=== PATIENT | female | born 1975 | race Caucasian/White ===

== ENCOUNTER 2017-05-13 20:18 | Emergency (ER) | payer MEDICAID ==
[~2017-05-13 20:18] MED LIST: ADDE20 PO; AMIT10TA6 PO; BACL10TA PO; CLON.5 PO; TOPA25TA8 PO
[2017-05-13 20:29] VITALS: BP 109/68; PULSE 84; RESP 20; TEMP 97.8; O2SAT 100
[2017-05-13] MEDS ORDERED: KETOROLAC TROMETHAMINE 30 MG/ML (IVP) VIAL IVP ONE (21:00)
[2017-05-13] MEDS ORDERED: SODIUM CHLORIDE 0.9% FLUSH 10 ML FLUSH IVF PRN (21:00)
[2017-05-13] MEDS ORDERED: diphenhydrAMINE HCL 50 MG/ML VIAL IVP ONE (21:00)
[2017-05-13] MEDS ORDERED: SODIUM CHLOR 0.9% 1000 ML INJ 1,000 ML IV ONE (21:00)
[2017-05-13] MEDS ORDERED: PROCHLORPERAZINE INJ 10 MG/2 ML VIAL IVP ONE (21:00)
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
[2017-05-13 21:18] VITALS: RESP 18; O2SAT 98
[2017-05-13 21:39] LABS: AUTOMATED NEUTROPHIL # 7.1 TH/MM3 (1.8-7.7); BASOPHIL # 0.1 TH/MM3 (0-0.2); BASOPHIL % 0.6 % (0.0-2.0); EOSINOPHIL # 0.5 TH/MM3 (0-0.4); EOSINOPHIL % 4.4 % (0.0-4.0); HEMATOCRIT 35.2 % (35.0-46.0); HEMO FLAGS DIFF FINAL; LYMPH % 20.4 % (9.0-44.0); LYMPHOCYTE # 2.1 TH/MM3 (1.0-4.8); MEAN CELL VOLUME 92.9 FL (80.0-100.0); MEAN CORPUSCULAR HGB CONC 32.3 % (32.0-36.0); MONO % 5.7 % (0.0-8.0); NEUT % 68.9 % (16.0-70.0); PLATELET COUNT 247 TH/MM3 (150-450); RED BLOOD COUNT 3.79 MIL/MM3 (4.00-5.30); RED CELL DISTRIBUTION WIDTH 14.1 % (11.6-17.2); WHITE BLOOD COUNT 10.4 TH/MM3 (4.0-11.0)
[2017-05-13 21:51] LABS: BICARBONATE 26.5 MEQ/L (21.0-32.0); POTASSIUM 3.7 MEQ/L (3.5-5.1)
[2017-05-13 22:26] LABS: BLOOD, URINE MOD (NEG); COMMENT (UR) CULT NOT INDICATED; CULTURE IF INDICATED CULT NOT INDICATED; GLUCOSE,URINE NEG (NEG); KETONE, URINE NEG (NEG); MUCUS URINE FEW /lpf (OCC); NITRITE,URINE NEG (NEG); PH, URINE 6.5 (5.0-8.5); SQUAMOUS EPITHELIAL CELL URINE <1 /hpf (0-5); URINE COLOR YELLOW (YELLW/STRAW)
--- NOTE | 2017-05-13 22:32 | RADRPT ---
EXAM DATE/TIME: 05/13/2017 22:09 [facility] COMPARISON: CT BRAIN W/O CONTRAST, January 25, 2016, 14:34. INDICATIONS : Headaches. RADIATION DOSE: 51.26 CTDIvol (mGy) MEDICAL HISTORY : None SURGICAL HISTORY : section. ENCOUNTER: Initial ACUITY: 1 day PAIN SCALE: 10/10 LOCATION: Bilateral cranial TECHNIQUE: Multiple contiguous axial images were obtained of the head. Using automated exposure control and adj ustment of the mA and/or kV according to patient size, radiation dose was kept as low as reasonably a chievable to obtain optimal diagnostic quality images. DICOM format image data is available electro nically for review and comparison. FINDINGS: CEREBRUM: The ventricles are normal for age. No evidence of midline shift, mass lesion, hemorrhage or acute in farction. No extra-axial fluid collections are seen. POSTERIOR FOSSA: The cerebellum and brainstem are intact. The 4th ventricle is midline. The cerebellopontine angle i s unremarkable. EXTRACRANIAL: The visualized portion of the orbits is intact. There is a suspected mucus retention cyst in the left maxillary sinus. SKULL: The calvaria is intact. No evidence of skull fracture. CONCLUSION: 1. No intracranial abnormality is seen. 2. Focal left maxillary sinus disease. Robby Brambila MD on May 13, 2017 at 22:29 Board Certified Radiologist. This report was verified electronically.
[2017-05-14 09:10] VITALS: BP 101/64; PULSE 79; RESP 16; O2SAT 100
== END 2017-05-14 10:00 | disposition home or self-care (01) ==
LOC: NEPD 20:18
DX: G43.909 Migraine, unspecified, not intractable, without status migrainosus (principal); M54.9 Dorsalgia, unspecified; R10.9 Unspecified abdominal pain; F90.9 Attention-deficit hyperactivity disorder, unspecified type; J45.909 Unspecified asthma, uncomplicated; F41.9 Anxiety disorder, unspecified; Z79.899 Other long term (current) drug therapy
CPT/HCPCS: 70450; 80048; 81001; 84703; 85025; 96361; 96374; 96375; 99285; J0780; J1200; J1885; J7030

== ENCOUNTER 2017-06-25 02:26 | Emergency (ER) | payer OTHER, MEDICAID ==
[~2017-06-25] VITALS: Ht 170.2 cm; Wt 46.5 kg
[2017-06-25 02:28] VITALS: BP 153/98; PULSE 74; RESP 16; TEMP 98.2; O2SAT 99
--- NOTE | 2017-06-25 02:55 | PD ---
HPI Chief Complaint: Fall Time Seen by Provider: 02:50 Travel History International Travel<30 days: No Contact w/Intl Traveler<30days: No Traveled to known affect area: No History of Present Illness HPI 42-year-old white female presents to emergency department for evaluation of a slip and fall. She states that she slipped on the wet floor at [facility] this evening sometime around 12:30. She is complaining of lower back pain, pain in her right wrist and some mild neck pain. She did not strike her head. She denies any nausea, vomiting, numbness or tingling. She states that she's had a prior back injury which has been exacerbated by the fall. She reports pain in the right lower back into her right leg. Mild to moderate intensity. Worse with movement. Some relief with sitting down. She states that her wrist only hurts mildly. And she knows it is not broken. PFSH Past Medical History Narrative Medical Attention deficit, anxiety, migraines ADHD: Yes Asthma: Yes Anxiety: Yes Diminished Hearing: No Medical other: Yes (PHOTOSENSITIVITY) Musculoskeletal: Yes (PAIN IN L5-S1, PAIN IN NECK) Psychiatric: Yes (PTSD) Immunizations Current: Yes Tetanus Vaccination: < 5 Years ?: Not : 1 Para: 1 Past Surgical History Section: Yes Social History Alcohol Use: No Tobacco Use: Yes (2 CIGS Q COUPLE DAYS) Substance Use: No Allergies-Medications (Allergen,Severity, Reaction): Coded Allergies: No Known Allergies (Unverified , 10/02/16) Reported Meds & Prescriptions Reported Meds & Active Scripts Active Reported Amitriptyline (Amitriptyline HCl) Unknown Strength Tab Unknown Dose PO HS Topamax (Topiramate) Unknown Strength Tab Unknown Dose PO BID Klonopin (Clonazepam) 0.5 Mg Tab 0.1 Mg PO TID Adderall (Amphetamine-Dextroamphetamine) 20 Mg Tab 25 Mg PO BID Avoid late evening doses. Space doses at least 4 to 6 hours if more than once/day dosing. Review of Systems Except as stated in HPI: all other systems reviewed are Neg General / Constitutional: No: Fever, Chills Eyes: Positive: Photophobia (chronic), No: Diploplia, Blurred Vision HENT: Positive: Headaches, Neck Stiffness, Neck Pain, No: Sore Throat Cardiovascular: No: Chest Pain or Discomfort, Palpitations Respiratory: No: Cough, Shortness of Breath Gastrointestinal: No: Nausea, Vomiting Genitourinary: No: Frequency, Dysuria Musculoskeletal: Positive: Myalgias, Pain, No: Arthralgias, Limited ROM, Weakness Skin: Positive Rash (razor injury) Physical Exam Narrative GENERAL: Well-developed, well-nourished in no apparent distress. Nontoxic appearing. HEAD: Normocephalic, atraumatic. EYES: Pupils equal round and reactive. Extraocular motions intact. No scleral icterus. No injection or drainage. ENT: Nose clear. Throat without erythema, tonsillar hypertrophy or exudate. Uvula midline. Airway patent. NECK: Trachea midline. Supple, nontender, moves head freely. No central bony tenderness or spasm. CARDIOVASCULAR: Regular rate and rhythm without murmurs, gallops, or rubs. RESPIRATORY: Clear to auscultation. Breath sounds equal bilaterally. No wheezes , rales, or rhonchi. GASTROINTESTINAL: Abdomen soft, non-tender, nondistended. No hepato-splenomegaly , or palpable masses. No guarding. EXTREMITIES: No clubbing, cyanosis, or edema. No joint tenderness. Patient has superficial dermal cut from her razor to her right brush. BACK: No central bony tenderness to palpation of the dorsal lumbar spine. Patient has right paralumbar tenderness. Negative straight leg raise bilaterally. She is neurovascularly intact distally. No saddle anesthesia. Without deformity. No flank tenderness. NEUROLOGICAL: Awake, alert and oriented x 3 .Cranial nerves grossly intact. Motor and sensory grossly within normal limits. Normal speech. Data Data Last Documented VS Vital Signs Date Time Temp Pulse Resp B/P (MAP) Pulse Ox O2 Delivery O2 Flow Rate FiO2 06/25/17 02:28 98.2 74 16 153/98 (116) 99 Room Air MDM Medical Decision Making Medical Screen Exam Complete: Yes Emergency Medical Condition: Yes Medical Record Reviewed: Yes Differential Diagnosis MDM: High Differential diagnoses: Fracture, sprain, strain, dislocation, contusion, neurovascular injury Narrative Course Patient's given Naprosyn 500 mg and Flexeril 10 mg by mouth. This is back pain, right wrist sprain status post fall Diagnosis Primary Impression: Back pain Qualified Codes: M54.41 - Lumbago with sciatica, right side Additional Impressions: Right wrist sprain Qualified Codes: S63.501A - Unspecified sprain of right wrist, initial encounter Fall Qualified Codes: W19.XXXA - Unspecified fall, initial encounter Patient Instructions: General Instructions Additional Instructions: Rest. Ice for the next 3 days followed by heat . Flexeril and Voltaren. Follow-up with a primary care doctor in one week. Return to the ER for emergencies. Med/Other Pt SpecificInfo: Prescription(s) given Disposition: 01 DISCHARGE HOME Condition: Stable Alexis Zurita Jun 25, 2017 02:55
[2017-06-25] MEDS ORDERED: DICL75TA PO (02:57)
[2017-06-25] MEDS ORDERED: CYCL1TAB29 PO (02:57)
[2017-06-25] MEDS ORDERED: NAPROXEN 500 MG TAB PO ONE (03:00)
[2017-06-25] MEDS ORDERED: CYCLOBENZAPRINE HCL 10 MG TAB PO ONE (03:00)
== END 2017-06-25 03:19 | disposition home or self-care (01) ==
LOC: NEPD 02:26
DX: S63.501A Unspecified sprain of right wrist, initial encounter (principal); M54.41 Lumbago with sciatica, right side; Y92.512 Supermarket, store or market as the place of occurrence of the external cause; J45.909 Unspecified asthma, uncomplicated; F90.9 Attention-deficit hyperactivity disorder, unspecified type; F17.210 Nicotine dependence, cigarettes, uncomplicated; F43.10 Post-traumatic stress disorder, unspecified; W01.0XXA Fall on same level from slipping, tripping and stumbling without subsequent striking against object, initial encounter
CPT/HCPCS: 99284

== ENCOUNTER 2017-08-01 05:52 | Emergency (ER) | payer MEDICAID ==
[~2017-08-01] VITALS: Ht 170.2 cm; Wt 50.0 kg
[~2017-08-01 05:52] MED LIST changes: -BACL10TA PO; +CYCL10TA PO; +DICL75TA PO; -TOPA25TA8 PO; +TOPI25 PO
[2017-08-01] MEDS ORDERED: METOCLOPRAMIDE HCL 10 MG/2 ML VIAL IVP ONE (06:00)
[2017-08-01] MEDS ORDERED: diphenhydrAMINE HCL 50 MG/ML VIAL IVP ONE (06:00)
[2017-08-01] MEDS ORDERED: SODIUM CHLORIDE 0.9% FLUSH 10 ML FLUSH IVF PRN (06:00)
[2017-08-01] MEDS ORDERED: SODIUM CHLOR 0.9% 1000 ML INJ 1,000 ML IV ONE (06:00)
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
[2017-08-01 06:35] LABS: AUTOMATED NEUTROPHIL # 4.5 TH/MM3 (1.8-7.7); BASOPHIL # 0.1 TH/MM3 (0-0.2); BASOPHIL % 0.8 % (0.0-2.0); EOSINOPHIL # 0.3 TH/MM3 (0-0.4); EOSINOPHIL % 3.5 % (0.0-4.0); HEMATOCRIT 37.3 % (35.0-46.0); HEMO FLAGS DIFF FINAL; LYMPH % 26.4 % (9.0-44.0); LYMPHOCYTE # 1.9 TH/MM3 (1.0-4.8); MEAN CELL VOLUME 92.7 FL (80.0-100.0); MEAN CORPUSCULAR HEMOGLOBIN 30.6 PG (27.0-34.0); MONO % 7.9 % (0.0-8.0); NEUT % 61.4 % (16.0-70.0); PLATELET COUNT 250 TH/MM3 (150-450); RED BLOOD COUNT 4.02 MIL/MM3 (4.00-5.30); WHITE BLOOD COUNT 7.4 TH/MM3 (4.0-11.0)
[2017-08-01 06:57] LABS: BICARBONATE 24.3 MEQ/L (21.0-32.0); POTASSIUM 3.1 MEQ/L (3.5-5.1)
[2017-08-01] MEDS ORDERED: POTASSIUM CHLORIDE 10 MEQ CONTROLLED RELEASE TAB PO ONE (07:00)
[2017-08-01 07:56] VITALS: BP 103/60
== END 2017-08-01 07:57 ==
LOC: NEPE 05:52
DX: G43.809 Other migraine, not intractable, without status migrainosus (principal); E87.6 Hypokalemia; Z72.0 Tobacco use; Z86.59 Personal history of other mental and behavioral disorders; Z87.09 Personal history of other diseases of the respiratory system; Z87.39 Personal history of other diseases of the musculoskeletal system and connective tissue
CPT/HCPCS: 80048; 85025; 96361; 96374; 96375; 99284; J1200; J2765; J7030

== ENCOUNTER 2017-10-06 16:33 | Inpatient (IN) | payer SELFPAY ==
[~2017-10-06] VITALS: Ht 170.2 cm; Wt 77.7 kg
[~2017-10-06 16:33] MED LIST changes: -CYCL10TA PO; -DICL75TA PO
[2017-10-06 16:35] VITALS: BP 125/99; PULSE 97; RESP 13; TEMP 98.8; O2SAT 100
--- NOTE | 2017-10-06 17:56 | PD ---
HPI Chief Complaint: Skin Problem Time Seen by Provider: 17:43 Travel History International Travel<30 days: No Contact w/Intl Traveler<30days: No Traveled to known affect area: No History of Present Illness HPI 42-year-old female with history of migraines on Topamax, here for evaluation of rash. The patient points about a week ago she noticed a rash on her arms and legs. For last 3 days she has been having a worsening rash on her face. She describes facial pain as burning. She does not know of any new exposures. No tongue or lip swelling. No difficulty breathing. She reports having a fever 101F at home. She has tried Benadryl without relief. Denies IVDU. [facility] Past Medical History ADHD: Yes Asthma: Yes Anxiety: Yes Diminished Hearing: No Musculoskeletal: Yes (PAIN IN L5-S1, PAIN IN NECK) Psychiatric: Yes (PTSD) Immunizations Current: Yes ?: Not LMP: on now : 1 Para: 1 Past Surgical History Section: Yes Social History Alcohol Use: No Tobacco Use: Yes (2 CIGS Q COUPLE DAYS) Substance Use: No Allergies-Medications (Allergen,Severity, Reaction): Coded Allergies: No Known Allergies (Verified Adverse Reaction, Unknown, 10/06/17) Reported Meds & Prescriptions Reported Meds & Active Scripts Active Reported Amitriptyline (Amitriptyline HCl) Unknown Strength Tab Unknown Dose PO HS Topamax (Topiramate) Unknown Strength Tab Unknown Dose PO BID Klonopin (Clonazepam) 0.5 Mg Tab 0.1 Mg PO TID Adderall (Amphetamine-Dextroamphetamine) 20 Mg Tab 25 Mg PO BID Avoid late evening doses. Space doses at least 4 to 6 hours if more than once/day dosing. Review of Systems Except as stated in HPI: all other systems reviewed are Neg Physical Exam Narrative GENERAL: Well-developed, well-nourished, awake, alert, no apparent distress. SKIN: Multiple excoriations to bilateral arms and legs with surrounding erythema , no purulent drainage. Diffuse erythema throughout face. Negative Nikolsky sign. HEAD: Skin exam as above. Moderate diffuse facial edema. Normocephalic. EYES: Pupils equal and round. EOMI. No proptosis. No scleral icterus. No injection or drainage. ENT: No nasal bleeding or discharge. Mucous membranes pink and moist. No intraoral lesions. No tongue or lip swelling. NECK: Trachea midline. No JVD. No nuchal rigidity. CARDIOVASCULAR: Regular rate and rhythm. RESPIRATORY: No accessory muscle use. Clear to auscultation. Breath sounds equal bilaterally. GASTROINTESTINAL: Abdomen soft, non-tender, nondistended. MUSCULOSKELETAL: No obvious deformities. No clubbing. No cyanosis. No edema. NEUROLOGICAL: Awake and alert. No obvious cranial nerve deficits. Motor grossly within normal limits. Normal speech. PSYCHIATRIC: Appropriate mood and affect; insight and judgment normal. Data Data Last Documented VS Vital Signs Date Time Temp Pulse Resp B/P (MAP) Pulse Ox O2 Delivery O2 Flow Rate FiO2 10/06/17 19:44 72 17 137/93 (108) 100 Room Air 10/06/17 19:44 98.2 Orders Orders Complete Blood Count With Diff (10/06/17 17:49) Comprehensive Metabolic Panel (10/06/17 17:49) Lactic Acid (10/06/17 17:49) Prothrombin Time / Inr (Pt) (10/06/17 17:49) Act Partial Throm Time (Ptt) (10/06/17 17:49) Urinalysis - C+S If Indicated (10/06/17 17:49) Iv Access Insert/Monitor (10/06/17 17:49) Ecg Monitoring (10/06/17 17:49) Oximetry (10/06/17 17:49) Sodium Chloride 0.9% Flush (Ns Flush) (10/06/17 18:00) Blood Culture (10/06/17 17:49) Ketorolac Inj (Toradol Inj) (10/06/17 18:00) Diphenhydramine Inj (Benadryl Inj) (10/06/17 18:00) Vancomycin Inj (Vancomycin Inj) (10/06/17 18:00) Labs Laboratory Tests Test 10/06/17 18:16 10/06/17 18:18 10/06/17 19:38 White Blood Count 8.6 TH/MM3 Red Blood Count 4.20 MIL/MM3 Hemoglobin 13.2 GM/DL Hematocrit 39.4 % Mean Corpuscular Volume 93.9 FL Mean Corpuscular Hemoglobin 31.4 PG Mean Corpuscular Hemoglobin Concent 33.5 % Red Cell Distribution Width 15.0 % Platelet Count 292 TH/MM3 Mean Platelet Volume 8.8 FL Neutrophils (%) (Auto) 62.1 % Lymphocytes (%) (Auto) 24.3 % Monocytes (%) (Auto) 6.0 % Eosinophils (%) (Auto) 6.8 % Basophils (%) (Auto) 0.8 % Neutrophils # (Auto) 5.3 TH/MM3 Lymphocytes # (Auto) 2.1 TH/MM3 Monocytes # (Auto) 0.5 TH/MM3 Eosinophils # (Auto) 0.6 TH/MM3 Basophils # (Auto) 0.1 TH/MM3 CBC Comment DIFF FINAL Differential Comment Blood Urea Nitrogen 19 MG/DL Creatinine 0.72 MG/DL Random Glucose 62 MG/DL Total Protein 7.1 GM/DL Albumin 3.6 GM/DL Calcium Level 8.6 MG/DL Alkaline Phosphatase 76 U/L Aspartate Amino Transf (AST/SGOT) 27 U/L Alanine Aminotransferase (ALT/SGPT) 17 U/L Total Bilirubin 0.3 MG/DL Sodium Level 137 MEQ/L Potassium Level 5.0 MEQ/L Chloride Level 105 MEQ/L Carbon Dioxide Level 25.5 MEQ/L Anion Gap 7 MEQ/L Estimat Glomerular Filtration Rate 88 ML/MIN [facility] Medical Decision Making Medical Screen Exam Complete: Yes Emergency Medical Condition: Yes Differential Diagnosis Rob[place]o-[place] syndrome, TENS, cellulitis, sepsis, bacteremia, allergic reaction, contact dermatitis Narrative Course Vital signs reviewed and are within normal limits. CBC is unremarkable. CMP is essentially unremarkable. Patient's facial edema seemed to have progressed while in the emergency department. She has significant erythema and several vesicles throughout her entire face. Face is also weeping serous discharge. There are no intraoral lesions. The patient was given a dose of Benadryl and Toradol and given a dose of IV vancomycin. She is on Topamax and this could be along the spectrum of Robledo-[place]/ TENS syndrome. She will be given a dose of IV Solu-Medrol. I discussed the case with bilingual receptionist Dr. Hopper as the facial edema seems to be progressing and I am concerned about potential airway compromise. He has agreed to admit the patient to his service. Diagnosis Primary Impression: Rash of face Additional Impression: Edema of face Mario Oh MD Oct 06, 2017 17:56
[2017-10-06] MEDS ORDERED: VANCOMYCIN 1 GM/200 ML INJ 200 ML IV ONE (18:00)
[2017-10-06] MEDS ORDERED: SODIUM CHLORIDE 0.9% FLUSH 10 ML FLUSH IV FLUSH PRN ×2 (18:00→22:00)
[2017-10-06] MEDS ORDERED: KETOROLAC TROMETHAMINE 30 MG/ML (IVP) VIAL IV PUSH ONE (18:00)
[2017-10-06] MEDS ORDERED: diphenhydrAMINE HCL 50 MG/ML VIAL IV PUSH ONE (18:00)
[2017-10-06 19:36] VITALS: O2SAT 97
[2017-10-06 19:44] VITALS: BP 137/93; PULSE 72; RESP 17; TEMP 98.2; O2SAT 100
[2017-10-06 19:45] LABS: AUTOMATED NEUTROPHIL # 5.3 TH/MM3 (1.8-7.7); BASOPHIL # 0.1 TH/MM3 (0-0.2); BASOPHIL % 0.8 % (0.0-2.0); EOSINOPHIL # 0.6 TH/MM3 (0-0.4); EOSINOPHIL % 6.8 % (0.0-4.0); HEMATOCRIT 39.4 % (35.0-46.0); HEMOGLOBIN 13.2 GM/DL (11.6-15.3); LYMPH % 24.3 % (9.0-44.0); LYMPHOCYTE # 2.1 TH/MM3 (1.0-4.8); MEAN CELL VOLUME 93.9 FL (80.0-100.0); MEAN CORPUSCULAR HEMOGLOBIN 31.4 PG (27.0-34.0); MEAN CORPUSCULAR HGB CONC 33.5 % (32.0-36.0); MEAN PLATELET VOLUME 8.8 FL (7.0-11.0); MONOCYTE # 0.5 TH/MM3 (0-0.9); NEUT % 62.1 % (16.0-70.0); PLATELET COUNT 292 TH/MM3 (150-450); WHITE BLOOD COUNT 8.6 TH/MM3 (4.0-11.0)
[2017-10-06 20:11] LABS: ALKALINE PHOSPHATASE 76 U/L (45-117); ALT (GPT) 17 U/L (10-53); TOTAL BILIRUBIN ADULT 0.3 MG/DL (0.2-1.0); TOTAL PROTEIN 7.1 GM/DL (6.4-8.2)
[2017-10-06 20:12] LABS: ALBUMIN 3.6 GM/DL (3.4-5.0); AST (GOT) 27 U/L (15-37); BICARBONATE 25.5 MEQ/L (21.0-32.0); BLOOD UREA NITROGEN 19 MG/DL (7-18); CALCIUM 8.6 MG/DL (8.5-10.1); CHLORIDE 105 MEQ/L (98-107); CREATININE 0.72 MG/DL (0.50-1.00); GLOMERULAR FILTRATION RATE 88 ML/MIN (>89); GLUCOSE,RANDOM 62 MG/DL (74-106); SODIUM (NA) 137 MEQ/L (136-145)
[2017-10-06 20:24] LABS: BILIRUBIN, URINE NEG (NEG); BLOOD, URINE NEG (NEG); GLUCOSE,URINE NEG (NEG); KETONE, URINE NEG (NEG); NITRITE,URINE NEG (NEG); SQUAMOUS EPITHELIAL CELL URINE 1 /hpf (0-5); URINE COLOR LIGHT-YELLOW (YELLW/STRAW); URINE LEUKOCYTE ESTERASE NEG (NEG)
[2017-10-06] MEDS ORDERED: methylPREDNISolone SOD SUCC 125 MG/2 ML VIAL IV PUSH ONE (20:30)
[2017-10-06 21:00] VITALS: BP 109/72; PULSE 83; RESP 16; O2SAT 100
[2017-10-06 22:00] VITALS: BP 123/73; PULSE 76; RESP 16; TEMP 98; O2SAT 100
[2017-10-06] MEDS ORDERED: LACTULOSE SYRUP 20 GM/30 ML CUP PO PRN (22:00)
[2017-10-06] MEDS ORDERED: BISACODYL 10 MG SUPP RECTAL PRN (22:00)
[2017-10-06] MEDS ORDERED: MISCELLANEOUS NURSING INFORMATION XX SCH (22:00)
[2017-10-06] MEDS ORDERED: MAGNESIUM HYDROXIDE SUSP 30 ML CUP PO PRN (22:00)
[2017-10-06] MEDS ORDERED: SENNOSIDES 8.6 MG TAB PO PRN (22:00)
[2017-10-06] MEDS ORDERED: CHLORHEXIDINE GLUCONATE 2 % 1 PACK (2 CLOTHS) TOP PRN (22:00)
[2017-10-06] MEDS: SODIUM CHLOR 0.9% 1000 ML INJ 1,000 ML IV SCH (22:19)
[2017-10-06] MEDS: ENOXAPARIN SODIUM 40 MG/0.4 ML SYRINGE SQ SCH (22:19)
--- NOTE | 2017-10-06 23:26 | HHI.HP ---
[facility] Service Critical Care Medicine Primary Care Physician No Primary Care Physician Admission Diagnosis face rash/edema, rule out Rob[place]o-[place] syndrome Diagnosis: Travel History International Travel<30 Days: No Contact w/Intl Traveler <30 Da: No Traveled to Known Affected Are: No History of Present Illness 42-year-old female with history of migraines on Topamax, presents for evaluation of facial and all body rash. The patient noticed about a week ago a rash on her arms and legs. For last 3 days she has been having a worsening rash on her face. She describes facial pain as burning. She does not know of any new exposures. No tongue or lip swelling. No difficulty breathing. She reports having a fever 101F at home. She has tried Benadryl without relief. Denies IVDU. Review of Systems Constitutional: DENIES: Diaphoretic episodes, Fatigue, Fever, Weight gain, Weight loss, Chills, Dizziness, Change in appetite, Night Sweats Endocrine: DENIES: Abnorml menstrual pattern, Heat/cold intolerance, Polydipsia , Polyuria, Polyphagia Eyes: DENIES: Blurred vision, Diplopia, Eye inflammation, Eye pain, Vision loss , Photosensitivity, Double Vision Ears, nose, mouth, throat: DENIES: Tinnitus, Hearing loss, Vertigo, Nasal discharge, Oral lesions, Throat pain, Hoarseness, Ear Pain, Running Nose, Epistaxis, Sinus Pain, Toothache, Odynophagia Respiratory: DENIES: Apneas, Cough, Snoring, Wheezing, Hemoptysis, Sputum production, Shortness of breath Cardiovascular: DENIES: Chest pain, Palpitations, Syncope, Dyspnea on Exertion , PND, Lower Extremity Edema, Orthopnea, Claudication Gastrointestinal: DENIES: Abdominal pain, Black stools, Bloody stools, Constipation, Diarrhea, Nausea, Vomiting, Difficulty Swallowing, Anorexia Genitourinary: DENIES: Abnormal vaginal bleeding, Dysmenorrhea, Dyspareunia, Sexual dysfunction, Urinary frequency, Urinary incontinence, Urgency, Hematuria , Dysuria, Nocturia, Vaginal discharge Musculoskeletal: DENIES: Joint pain, Muscle aches, Stiffness, Joint Swelling, Back pain, Neck pain Integumentary: COMPLAINS OF: Pruritus, Rash, DENIES: Abnormal pigmentation, Nail changes, Breast masses, Breast skin changes, Nipple discharge Hematologic/lymphatic: DENIES: Bruising, Lymphadenopathy Immunologic/allergic: COMPLAINS OF: Eczema, DENIES: Urticaria Neurologic: DENIES: Abnormal gait, Headache, Localized weakness, Paresthesias, Seizures, Speech Problems, Tremor, Poor Balance Psychiatric: COMPLAINS OF: Anxiety, Depression, DENIES: Confusion, Mood changes , Hallucinations, Agitation, Suicidal Ideation, Homicidal Ideation, Delusions Past Family Social History Allergies: Coded Allergies: No Known Allergies (Verified Adverse Reaction, Unknown, 10/06/17) Past Medical History Posttraumatic stress disorder Headaches Anxiety Depression ADHD Past Surgical History No surgical history significant for current illness Reported Medications Reported Meds & Active Scripts Active Reported Amitriptyline (Amitriptyline HCl) Unknown Strength Tab Unknown Dose PO HS Topamax (Topiramate) Unknown Strength Tab Unknown Dose PO BID Klonopin (Clonazepam) 0.5 Mg Tab 0.1 Mg PO TID Adderall (Amphetamine-Dextroamphetamine) 20 Mg Tab 25 Mg PO BID Avoid late evening doses. Space doses at least 4 to 6 hours if more than once/day dosing. Active Ordered Medications Current Medications Medications (Trade) Dose Ordered Sig/Sita Route PRN Reason Start Time Stop Time Status Last Admin Dose Admin Sodium Chloride 1,000 ml @ 124 mls/hr Q8H4M IV 10/06/17 21:57 10/06/17 22:19 Sodium Chloride (NS Flush) 2 ml UNSCH PRN IV FLUSH FLUSH AFTER USING IV ACCESS 10/06/17 22:00 Sodium Chloride (NS Flush) 2 ml BID IV FLUSH 10/07/17 09:00 Acetaminophen (Tylenol) 650 mg Q6H PRN PO PAIN 1-10 AND/OR FEVER >101F 10/06/17 22:00 Famotidine (Pepcid Inj) 20 mg Q12HR IV PUSH 10/07/17 09:00 Ondansetron HCl (Zofran Inj) 4 mg Q6H PRN IV PUSH NAUSEA OR VOMITING 10/06/17 22:00 Albuterol/ Ipratropium (Duoneb Neb) 1 ampule Q2HR NEB PRN INH WHEEZING 10/06/17 22:00 Enoxaparin Sodium (Lovenox Inj) 40 mg Q24H SQ 10/06/17 22:00 10/06/17 22:19 Miscellaneous Information 1 Q361D XX 10/06/17 22:00 10/06/17 22:00 Chlorhexidine Gluconate (Chlorhexidine 2% Cloth) 3 pack Taper DAILY@04 TOP 10/07/17 04:00 10/03/18 03:59 Chlorhexidine Gluconate (Chlorhexidine 2% Cloth) 3 pack UNSCH PRN TOP HYGIENIC CARE 10/06/17 22:00 Senna/Docusate Sodium (Mindi-Colace) 1 tab BID PO 10/07/17 09:00 Magnesium Hydroxide (Milk Of Magnesia Liq) 30 ml Q12H PRN PO Mild constipation 10/06/17 22:00 Sennosides (Senokot) 17.2 mg Q12H PRN PO Moderate constipation 10/06/17 22:00 Bisacodyl (Dulcolax Supp) 10 mg DAILY PRN RECTAL SEVERE CONSITIPATION/ IF NPO 10/06/17 22:00 Lactulose (Lactulose Liq) 30 ml DAILY PRN PO SEVERE CONSITIPATION/ IF PO 10/06/17 22:00 Family History No family history significant for coronary artery disease Social History Denies alcohol, tobacco, or illicit drug abuse Physical Exam Vital Signs Vital Signs Date Time Temp Pulse Resp B/P (MAP) Pulse Ox O2 Delivery O2 Flow Rate FiO2 10/06/17 22:52 10/06/17 22:00 98.0 76 16 123/73 (90) 100 Room Air 10/06/17 21:56 16 10/06/17 21:00 83 16 109/72 (84) 100 Room Air 10/06/17 19:44 72 17 137/93 (108) 100 Room Air 10/06/17 19:44 98.2 10/06/17 19:36 97 Room Air 10/06/17 16:35 98.8 97 13 125/99 (108) 100 Physical Exam GENERAL: Well-developed, well-nourished, awake, alert, no apparent distress. SKIN: Multiple excoriations to bilateral arms and legs with surrounding erythema , no purulent drainage. Diffuse erythema throughout face. Negative Nikolsky sign. HEAD: Skin exam as above. Moderate diffuse facial edema. Normocephalic. EYES: Pupils equal and round. EOMI. No proptosis. No scleral icterus. No injection or drainage. ENT: No nasal bleeding or discharge. Mucous membranes pink and moist. No intraoral lesions. No tongue or lip swelling. NECK: Trachea midline. No JVD. No nuchal rigidity. CARDIOVASCULAR: Regular rate and rhythm. RESPIRATORY: No accessory muscle use. Clear to auscultation. Breath sounds equal bilaterally. GASTROINTESTINAL: Abdomen soft, non-tender, nondistended. MUSCULOSKELETAL: No obvious deformities. No clubbing. No cyanosis. No edema. NEUROLOGICAL: Awake and alert. No obvious cranial nerve deficits. Motor grossly within normal limits. Normal speech. Laboratory Laboratory Tests Test 10/06/17 18:16 10/06/17 18:18 10/06/17 19:38 10/06/17 19:48 White Blood Count 8.6 Red Blood Count 4.20 Hemoglobin 13.2 Hematocrit 39.4 Mean Corpuscular Volume 93.9 Mean Corpuscular Hemoglobin 31.4 Mean Corpuscular Hemoglobin Concent 33.5 Red Cell Distribution Width 15.0 Platelet Count 292 Mean Platelet Volume 8.8 Neutrophils (%) (Auto) 62.1 Lymphocytes (%) (Auto) 24.3 Monocytes (%) (Auto) 6.0 Eosinophils (%) (Auto) 6.8 Basophils (%) (Auto) 0.8 Neutrophils # (Auto) 5.3 Lymphocytes # (Auto) 2.1 Monocytes # (Auto) 0.5 Eosinophils # (Auto) 0.6 Basophils # (Auto) 0.1 CBC Comment DIFF FINAL Differential Comment Blood Urea Nitrogen 19 Creatinine 0.72 Random Glucose 62 Total Protein 7.1 Albumin 3.6 Calcium Level 8.6 Alkaline Phosphatase 76 Aspartate Amino Transf (AST/SGOT) 27 Alanine Aminotransferase (ALT/SGPT) 17 Total Bilirubin 0.3 Sodium Level 137 Potassium Level 5.0 Chloride Level 105 Carbon Dioxide Level 25.5 Anion Gap 7 Estimat Glomerular Filtration Rate 88 Urine Color LIGHT-YELLOW Urine Turbidity CLEAR Urine pH 6.0 Urine Specific Elizabeth 1.010 Urine Protein NEG Urine Glucose (UA) NEG Urine Ketones NEG Urine Occult Blood NEG Urine Nitrite NEG Urine Bilirubin NEG Urine Urobilinogen LESS THAN 2.0 Urine Leukocyte Esterase NEG Urine RBC LESS THAN 1 Urine WBC 1 Urine Squamous Epithelial Cells 1 Microscopic Urinalysis Comment CULT NOT INDICATED Prothrombin Time 10.0 Prothromb Time International Ratio 1.0 Activated Partial Thromboplast Time 25.7 Result Diagram: 10/06/17181710/06/171817 Septic Shock Reassessment Septic shock perfusion: reassessment completed Caprini VTE Risk Assessment Caprini VTE Risk Assessment: No/Low Risk (score <= 1) Caprini Risk Assessment Model Point Value = 1 Point Value = 2 Point Value = 3 Point Value = 5 Age 41-60 Minor surgery BMI > 25 kg/m2 Swollen legs Varicose veins or History of unexplained or recurrent spontaneous Oral contraceptives or hormone replacement Sepsis (< 1 month) Serious lung disease, including pneumonia (< 1 month) Abnormal pulmonary function Acute myocardial infarction Congestive heart failure (< 1 month) History of inflammatory bowel disease Medical patient at bed rest Age 61-74 Arthroscopic surgery Major open surgery (> 45 min) Laparoscopic surgery (> 45 min) Malignancy Confined to bed (> 72 hours) Immobilizing plaster cast Central venous access Age >= 75 History of VTE Family history of VTE Factor V Leiden Prothrombin [id number] Lupus anticoagulant Anticardiolipin antibodies Elevated serum homocysteine Heparin-induced thrombocytopenia Other congenital or acquired thrombophilia Stroke (< 1 month) Elective arthroplasty Hip, pelvis, or leg fracture Acute spinal cord injury (< 1 month) Prophylaxis Regimen Total Risk Factor Score Risk Level Prophylaxis Regimen 0-1 Low Early ambulation 2 Moderate Order ONE of the following: *Sequential Compression Device (SCD) *Heparin 5000 units SQ BID 3-4 Higher Order ONE of the following medications: *Heparin 5000 units SQ TID *Enoxaparin/Lovenox 40 mg SQ daily (WT < 150 kg, CrCl > 30 mL/min) *Enoxaparin/Lovenox 30 mg SQ daily (WT < 150 kg, CrCl > 10-29 mL/min) *Enoxaparin/Lovenox 30 mg SQ BID (WT < 150 kg, CrCl > 30 mL/min) AND/OR *Sequential Compression Device (SCD) 5 or more Highest Order ONE of the following medications: *Heparin 5000 units SQ TID (Preferred with Epidurals) *Enoxaparin/Lovenox 40 mg SQ daily (WT < 150 kg, CrCl > 30 mL/min) *Enoxaparin/Lovenox 30 mg SQ daily (WT < 150 kg, CrCl > 10-29 mL/min) *Enoxaparin/Lovenox 30 mg SQ BID (WT < 150 kg, CrCl > 30 mL/min) AND *Sequential Compression Device (SCD) Assessment and Plan Assessment and Plan Facial and oral body rash - Hold Topamax - IV steroids - Benadryl and Pepcid - Monitor for airway compromise Posttraumatic stress disorder - Continue amitriptyline Headaches - NSAIDs when necessary ADHD - Adderall DVT GI prophylaxis - Teds SCDs - Early aggressive mobilization - Pepcid Critical Care: The total critical care time was 35 minutes. Time to perform other separately billable procedures was not included in the critical care time. Ivan Hopper MD Oct 06, 2017 11:26 pm
[2017-10-07] VITALS (11 sets, daily range): BP systolic 93–117; BP diastolic 54–74; PULSE 64–100; RESP 15–35; TEMP 97.1–98.8; O2SAT 97–100
[2017-10-07] MEDS ORDERED: ACETAMINOPHEN 1000 MG/100 ML 100 ML IV SCH (01:45)
[2017-10-07] MEDS: CHLORHEXIDINE GLUCONATE 2 % 1 PACK (2 CLOTHS) TOP SCH (04:00)
[2017-10-07 04:11] LABS: AUTOMATED NEUTROPHIL # 8.7 TH/MM3 (1.8-7.7); BASOPHIL % 0.4 % (0.0-2.0); EOSINOPHIL % 0.1 % (0.0-4.0); HEMATOCRIT 37.3 % (35.0-46.0); HEMOGLOBIN 12.3 GM/DL (11.6-15.3); LYMPH % 6.4 % (9.0-44.0); LYMPHOCYTE # 0.6 TH/MM3 (1.0-4.8); MEAN CELL VOLUME 93.5 FL (80.0-100.0); MEAN CORPUSCULAR HEMOGLOBIN 30.9 PG (27.0-34.0); MEAN PLATELET VOLUME 8.2 FL (7.0-11.0); MONO % 0.7 % (0.0-8.0); MONOCYTE # 0.1 TH/MM3 (0-0.9); NEUT % 92.4 % (16.0-70.0); PLATELET COUNT 260 TH/MM3 (150-450); RED BLOOD COUNT 3.99 MIL/MM3 (4.00-5.30); RED CELL DISTRIBUTION WIDTH 14.3 % (11.6-17.2); WHITE BLOOD COUNT 9.4 TH/MM3 (4.0-11.0)
[2017-10-07 04:50] LABS: ALBUMIN 3.2 GM/DL (3.4-5.0); ALT (GPT) 11 U/L (10-53); AST (GOT) 11 U/L (15-37); BICARBONATE 22.9 MEQ/L (21.0-32.0); BLOOD UREA NITROGEN 16 MG/DL (7-18); CALCIUM 7.8 MG/DL (8.5-10.1); CHLORIDE 111 MEQ/L (98-107); CREATININE 0.66 MG/DL (0.50-1.00); GLOMERULAR FILTRATION RATE 97 ML/MIN (>89); GLUCOSE,RANDOM 144 MG/DL (74-106); MAGNESIUM 2.1 MG/DL (1.5-2.5); PHOSPHORUS 2.3 MG/DL (2.5-4.9); SODIUM (NA) 140 MEQ/L (136-145)
[2017-10-07 04:52] LABS: ALKALINE PHOSPHATASE 60 U/L (45-117); TOTAL BILIRUBIN ADULT 0.3 MG/DL (0.2-1.0); TOTAL PROTEIN 6.2 GM/DL (6.4-8.2)
[2017-10-07] MEDS ORDERED: diphenhydrAMINE HCL 50 MG/ML VIAL IV PUSH PRN (05:30)
[2017-10-07] MEDS: methylPREDNISolone SOD SUCC 40 MG/1 ML VIAL IV PUSH SCH ×4 (06:00→23:23)
[2017-10-07] MEDS: SODIUM CHLOR 0.9% 1000 ML INJ 1,000 ML IV SCH ×3 (06:01→23:24)
[2017-10-07] MEDS: FAMOTIDINE 20 MG/2 ML VIAL IV PUSH SCH ×2 (08:41→21:00)
[2017-10-07] MEDS: SODIUM CHLORIDE 0.9% FLUSH 10 ML FLUSH IV FLUSH SCH ×2 (08:44→21:01)
--- NOTE | 2017-10-07 10:15 | HHI.CCPN ---
Subjective Remarks/Hospital Course 42-year-old female with history of migraines on Topamax, presents for evaluation of facial and all body rash. The patient noticed about a week ago a rash on her arms and legs. For last 3 days she has been having a worsening rash on her face. She describes facial pain as burning. She does not know of any new exposures. No tongue or lip swelling. No difficulty breathing. She reports having a fever 101F at home. She has tried Benadryl without relief. Denies IVDU. 10/07: Breathing comfortably and able to talk in full sentences. She is predominantly limited to the neck and face. No scalp involvement. Swollen and itchy per patient. No history of lupus or any autoimmune diseases. Unfortunately dermatologists available for [place] Objective Vital Signs Date Time Temp Pulse Resp B/P (MAP) Pulse Ox O2 Delivery O2 Flow Rate FiO2 10/07/17 08:00 66 10/07/17 04:00 98.5 15 94/54 (67) 97 10/06/17 22:00 Room Air Intake and Output 10/07/17 10/07/17 10/08/17 08:00 16:00 00:00 Intake Total 982 ml Balance 982 ml Result Diagram: 10/07/17 0354 10/07/17 0354 Objective Remarks GENERAL: Well-developed, well-nourished, awake, alert, no apparent distress. SKIN: Multiple excoriations to bilateral arms and legs with surrounding erythema , no purulent drainage. Diffuse erythematous scaly rash on face and neck. Negative Nikolsky sign. HEAD/FACE: Skin exam as above. Moderate facial edema. Normocephalic. EYES: Pupils equal and round. EOMI. No proptosis. No scleral icterus. No injection or drainage. ENT: No nasal bleeding or discharge. No tongue or lip swelling. NECK: Trachea midline. No JVD. No nuchal rigidity. No stridor CARDIOVASCULAR: Regular rate and rhythm. RESPIRATORY: No accessory muscle use. Clear to auscultation. Breath sounds equal bilaterally. GASTROINTESTINAL: Abdomen soft, non-tender, nondistended. MUSCULOSKELETAL: No obvious deformities. No clubbing. No cyanosis. No edema. NEUROLOGICAL: Awake and alert. No obvious cranial nerve deficits. Motor grossly within normal limits. Normal speech. A/P Assessment and Plan Face and neck erythematous rash - Hold Topamax - IV steroids 40 mg every 6 hours - Scheduled Benadryl and Pepcid - No evidence of airway compromise - No tank bottom assembler available at [place], need OP follow up once DCd - No evidence of staphylococcal skin infection at this time - Follow-up on blood culture - Ativan when necessary for anxiety Posttraumatic stress disorder - Continue amitriptyline Headaches - NSAIDs when necessary ADHD - Adderall DVT GI prophylaxis - Teds SCDs - Early aggressive mobilization - Pepcid Critical Care: Level 2 Transfer to Med Surg with Tele. [facility] to assume care in am Caitlin Bustamante MD Oct 07, 2017 10:15
[2017-10-07] MEDS: LORazepam 2 MG/ML VIAL IV PUSH PRN ×2 (10:55→21:01)
[2017-10-07] MEDS: DOCUSATE SODIUM 50 MG/SENNA 8.6 MG TAB PO SCH ×2 (12:10→21:00)
[2017-10-07] MEDS: diphenhydrAMINE HCL 50 MG/ML VIAL IV PUSH SCH ×2 (14:45→21:01)
[2017-10-07] MEDS: ACETAMINOPHEN 325 MG TAB PO PRN (16:19)
[2017-10-07] MEDS: ENOXAPARIN SODIUM 40 MG/0.4 ML SYRINGE SQ SCH (21:02)
[2017-10-08] VITALS (11 sets, daily range): BP systolic 96–119; BP diastolic 54–69; PULSE 68–96; RESP 18–21; TEMP 97.8–98.3; O2SAT 95–99
[2017-10-08] MEDS: CHLORHEXIDINE GLUCONATE 2 % 1 PACK (2 CLOTHS) TOP SCH (01:51)
[2017-10-08] MEDS: diphenhydrAMINE HCL 50 MG/ML VIAL IV PUSH SCH ×4 (03:25→21:07)
[2017-10-08] MEDS: LORazepam 2 MG/ML VIAL IV PUSH PRN ×4 (03:26→21:07)
[2017-10-08] MEDS: methylPREDNISolone SOD SUCC 40 MG/1 ML VIAL IV PUSH SCH ×4 (05:54→23:58)
[2017-10-08] MEDS: SODIUM CHLOR 0.9% 1000 ML INJ 1,000 ML IV SCH ×4 (06:13→23:58)
[2017-10-08] MEDS: SODIUM CHLORIDE 0.9% FLUSH 10 ML FLUSH IV FLUSH SCH ×2 (07:55→21:07)
[2017-10-08] MEDS: FAMOTIDINE 20 MG/2 ML VIAL IV PUSH SCH ×2 (07:55→21:07)
[2017-10-08] MEDS: DOCUSATE SODIUM 50 MG/SENNA 8.6 MG TAB PO SCH ×2 (07:56→21:00)
--- NOTE | 2017-10-08 09:14 | HHI.PR ---
Subjective Remarks in no acute distress. says that her difficulty swallowing is better. but still with rash and swelling of the face. afebrile with no sob. Objective Vitals Vital Signs Date Time Temp Pulse Resp B/P (MAP) Pulse Ox O2 Delivery O2 Flow Rate FiO2 10/08/17 07:53 97.9 75 18 96/54 (68) 97 10/08/17 06:00 98.3 68 20 115/62 (79) 99 10/08/17 04:00 Room Air 10/08/17 04:00 74 10/08/17 00:40 98.0 89 19 112/67 (82) 98 10/08/17 00:16 Room Air 10/08/17 00:15 76 10/07/17 21:15 97.1 91 18 110/65 (80) 98 10/07/17 20:00 Room Air 10/07/17 20:00 89 10/07/17 16:00 97.6 100 20 98/62 (74) 98 10/07/17 14:00 75 10/07/17 12:00 98.4 78 19 100/67 (78) 97 10/07/17 12:00 78 10/07/17 10:00 86 I/O 10/07/17 10/07/17 10/07/17 10/08/17 10/08/17 10/08/17 07:00 15:00 23:00 07:00 15:00 23:00 Intake Total 982 ml 950 ml 500 ml 2450 ml Balance 982 ml 950 ml 500 ml 2450 ml Intake Oral 500 ml 650 ml IV Total 982 ml 950 ml 1800 ml # Voids 2 3 3 # Bowel Movements 0 0 Result Diagram: 10/07/17 0354 10/07/17 0354 Objective Remarks GENERAL: This is a well-nourished, well-developed patient, in no apparent distress. HEENT; rash and swelling of the face CARDIOVASCULAR: Regular rate and regular rhythm without murmurs, gallops, or rubs. RESPIRATORY: Clear to auscultation. Breath sounds equal bilaterally. No wheezes , rales, or rhonchi. GASTROINTESTINAL: Abdomen soft, non-tender, nondistended. Normal, active bowel sounds MUSCULOSKELETAL: Extremities without clubbing, cyanosis, or edema. NEURO: Alert & Oriented x4 to person, place, time, situation. Moves all ext x4 Medications and IVs Inpatient Medications Acetaminophen 100 ml @ 400 mls/hr UNSCH X1 IV ; Start 10/07/17 at 01:45; Stop 10/07/17 at 04:00; Status DC Acetaminophen (Tylenol) 650 mg Q6H PRN PO PAIN 1-10 AND/OR FEVER >101F Last administered on 10/07/17at 16:19; Start 10/06/17 at 22:00 Albuterol/ Ipratropium (Duoneb Neb) 1 ampule Q2HR NEB PRN INH WHEEZING; Start 10/06/17 at 22:00 Bisacodyl (Dulcolax Supp) 10 mg DAILY PRN RECTAL SEVERE CONSITIPATION/ IF NPO; Start 10/06/17 at 22:00 Chlorhexidine Gluconate (Chlorhexidine 2% Cloth) 3 pack UNSCH PRN TOP HYGIENIC CARE; Start 10/06/17 at 22:00 Diphenhydramine HCl (Benadryl Inj) 50 mg Q6H IV PUSH Last administered on at 07:55; Start 10/07/17 at 15:00 Enoxaparin Sodium (Lovenox Inj) 40 mg Q24H SQ Last administered on 10/07/17at 21 :02; Start 10/06/17 at 22:00 Famotidine (Pepcid Inj) 20 mg Q12HR IV PUSH Last administered on 10/08/17at 07: 55; Start 10/07/17 at 09:00 Ketorolac Tromethamine (Toradol Inj) 30 mg ONCE ONCE IV PUSH Last administered on 10/06/17at 18:25; Start 10/06/17 at 18:00; Stop 10/06/17 at 18:01 ; Status DC Lactulose (Lactulose Liq) 30 ml DAILY PRN PO SEVERE CONSITIPATION/ IF PO; Start 10/06/17 at 22:00 Lorazepam (Ativan Inj) 0.5 mg Q6H PRN IV PUSH anxiety Last administered on 10/08at 03:26; Start 10/07/17 at 10:15 Magnesium Hydroxide (Milk Of Magnesia Liq) 30 ml Q12H PRN PO Mild constipation ; Start 10/06/17 at 22:00 Methylprednisolone Sodium Succinate (SoluMEDROL INJ) 40 mg Q6HR IV PUSH Last administered on 10/08/17 05:54; Start 10/07/17 at 06:00 Miscellaneous Information 1 Q361D XX Last administered on 10/06/17at 22:00; Start 10/06/17 at 22:00 Ondansetron HCl (Zofran Inj) 4 mg Q6H PRN IV PUSH NAUSEA OR VOMITING; Start at 22:00 Senna/Docusate Sodium (Mindi-Colace) 1 tab BID PO ; Start 10/07/17 at 09:00 Sennosides (Senokot) 17.2 mg Q12H PRN PO Moderate constipation; Start 10/06/17 at 22:00 Sodium Chloride (NS Flush) 2 ml BID IV FLUSH Last administered on 10/08/17at 07: 55; Start 10/07/17 at 09:00 Vancomycin/Sodium Chloride 200 ml @ 200 mls/hr ONCE ONCE IV Last administered on 10/06/17at 18:45; Start 10/06/17 at 18:00; Stop 10/06/17 at 18:59 ; Status DC A/P Assessment and Plan A/P Face and neck erythematous rash - Hold Topamax - continue IV solumedrol - Scheduled Benadryl and Pepcid - No evidence of airway compromise - No detective youth bureau available at [place], need OP follow up once DCd - No evidence of staphylococcal skin infection at this time - Follow-up on blood culture - Ativan when necessary for anxiety -ST following; diet will be advanced per ST. Posttraumatic stress disorder - Continue amitriptyline Headaches - NSAIDs when necessary ADHD - Adderall DVT GI prophylaxis - Teds SCDs - Early aggressive mobilization - Pepcid Discharge Planning will monitor for now to ensure that the facial rash/ swelling is improving. not ready for discharge today. Nella Miramontes MD Oct 08, 2017 09:14
[2017-10-08] MEDS: ACETAMINOPHEN 325 MG TAB PO PRN ×2 (15:32→21:47)
[2017-10-08] MEDS: ENOXAPARIN SODIUM 40 MG/0.4 ML SYRINGE SQ SCH (21:06)
[2017-10-09] VITALS (11 sets, daily range): BP systolic 92–116; BP diastolic 52–68; PULSE 52–88; RESP 18–21; TEMP 97.9–98.4; O2SAT 96–100
[2017-10-09] MEDS: LORazepam 2 MG/ML VIAL IV PUSH PRN ×4 (03:07→21:32)
[2017-10-09] MEDS: diphenhydrAMINE HCL 50 MG/ML VIAL IV PUSH SCH ×4 (03:07→21:32)
[2017-10-09] MEDS: ACETAMINOPHEN 325 MG TAB PO PRN (03:08)
[2017-10-09] MEDS: CHLORHEXIDINE GLUCONATE 2 % 1 PACK (2 CLOTHS) TOP SCH (03:08)
[2017-10-09] MEDS: methylPREDNISolone SOD SUCC 40 MG/1 ML VIAL IV PUSH SCH ×4 (05:39→23:59)
[2017-10-09] MEDS: SODIUM CHLOR 0.9% 1000 ML INJ 1,000 ML IV SCH ×2 (05:42→16:00)
[2017-10-09] MEDS: SODIUM CHLORIDE 0.9% FLUSH 10 ML FLUSH IV FLUSH SCH ×2 (09:00→21:33)
[2017-10-09] MEDS: DOCUSATE SODIUM 50 MG/SENNA 8.6 MG TAB PO SCH ×2 (09:00→21:00)
--- NOTE | 2017-10-09 09:02 | HHI.PR ---
Subjective Remarks in no acute distress. facial rash and swelling seems to be improving. remains afebrile. Objective Vitals Vital Signs Date Time Temp Pulse Resp B/P (MAP) Pulse Ox O2 Delivery O2 Flow Rate FiO2 10/09/17 04:00 59 10/09/17 04:00 20 10/09/17 03:09 98.1 63 20 112/59 (76) 98 10/09/17 00:00 97.9 88 19 92/52 (65) 98 10/09/17 00:00 82 10/08/17 20:00 Room Air 10/08/17 20:00 97.8 92 21 119/64 (82) 95 10/08/17 20:00 90 10/08/17 16:17 98.0 86 18 109/57 (74) 98 10/08/17 16:00 84 10/08/17 12:30 97.9 96 20 112/69 (83) 96 10/08/17 12:00 89 10/08/17 11:21 98 Room Air I/O 10/08/17 10/08/17 10/08/17 10/09/17 10/09/17 10/09/17 07:00 15:00 23:00 07:00 15:00 23:00 Intake Total 2450 ml 480 ml 1000 ml 240 ml Balance 2450 ml 480 ml 1000 ml 240 ml Intake Oral 650 ml 480 ml 240 ml IV Total 1800 ml 1000 ml # Voids 3 3 3 # Bowel Movements 0 1 0 Result Diagram: 10/07/17 0354 10/07/17 0354 Objective Remarks GENERAL: This is a well-nourished, well-developed patient, in no apparent distress. HEENT; rash and swelling of the face- seems to be improving slowly. CARDIOVASCULAR: Regular rate and regular rhythm without murmurs, gallops, or rubs. RESPIRATORY: Clear to auscultation. Breath sounds equal bilaterally. No wheezes , rales, or rhonchi. GASTROINTESTINAL: Abdomen soft, non-tender, nondistended. Normal, active bowel sounds MUSCULOSKELETAL: Extremities without clubbing, cyanosis, or edema. NEURO: Alert & Oriented x4 to person, place, time, situation. Moves all ext x4 Medications and IVs Inpatient Medications Acetaminophen 100 ml @ 400 mls/hr UNSCH X1 IV ; Start 10/07/17 at 01:45; Stop 10/07/17 at 04:00; Status DC Acetaminophen (Tylenol) 650 mg Q6H PRN PO PAIN 1-10 AND/OR FEVER >101F Last administered on 10/09/17at 03:08; Start 10/06/17 at 22:00 Albuterol/ Ipratropium (Duoneb Neb) 1 ampule Q2HR NEB PRN INH WHEEZING; Start 10/06/17 at 22:00 Bisacodyl (Dulcolax Supp) 10 mg DAILY PRN RECTAL SEVERE CONSITIPATION/ IF NPO; Start 10/06/17 at 22:00 Chlorhexidine Gluconate (Chlorhexidine 2% Cloth) 3 pack UNSCH PRN TOP HYGIENIC CARE; Start 10/06/17 at 22:00 Diphenhydramine HCl (Benadryl Inj) 50 mg Q6H IV PUSH Last administered on at 03:07; Start 10/07/17 at 15:00 Enoxaparin Sodium (Lovenox Inj) 40 mg Q24H SQ Last administered on 10/08/17at 21 :06; Start 10/06/17 at 22:00 Famotidine (Pepcid Inj) 20 mg Q12HR IV PUSH Last administered on 10/08/17at 21: 07; Start 10/07/17 at 09:00 Ketorolac Tromethamine (Toradol Inj) 30 mg ONCE ONCE IV PUSH Last administered on 10/06/17at 18:25; Start 10/06/17 at 18:00; Stop 10/06/17 at 18:01 ; Status DC Lactulose (Lactulose Liq) 30 ml DAILY PRN PO SEVERE CONSITIPATION/ IF PO; Start 10/06/17 at 22:00 Lorazepam (Ativan Inj) 0.5 mg Q6H PRN IV PUSH anxiety Last administered on 10/09at 03:07; Start 10/07/17 at 10:15 Magnesium Hydroxide (Milk Of Magnesia Liq) 30 ml Q12H PRN PO Mild constipation ; Start 10/06/17 at 22:00 Methylprednisolone Sodium Succinate (SoluMEDROL INJ) 40 mg Q6HR IV PUSH Last administered on 10/09/17at 05:39; Start 10/07/17 at 06:00 Miscellaneous Information 1 Q361D XX Last administered on 10/06/17at 22:00; Start 10/06/17 at 22:00 Ondansetron HCl (Zofran Inj) 4 mg Q6H PRN IV PUSH NAUSEA OR VOMITING; Start at 22:00 Senna/Docusate Sodium (Mindi-Colace) 1 tab BID PO ; Start 10/07/17 at 09:00 Sennosides (Senokot) 17.2 mg Q12H PRN PO Moderate constipation; Start 10/06/17 at 22:00 Sodium Chloride (NS Flush) 2 ml BID IV FLUSH Last administered on 10/08/17at 21: 07; Start 10/07/17 at 09:00 Vancomycin/Sodium Chloride 200 ml @ 200 mls/hr ONCE ONCE IV Last administered on 10/06/17at 18:45; Start 10/06/17 at 18:00; Stop 10/06/17 at 18:59 ; Status DC A/P Assessment and Plan A/P Face and neck erythematous rash - Hold Topamax - continue IV solumedrol - Scheduled Benadryl and Pepcid - No evidence of airway compromise - No electronic video games servicer available at [place], need OP follow up once DCd ( this was previously d/w Dr.Margaret Sanchez)- case management consulted to assist with outpatient f/u. - No evidence of staphylococcal skin infection at this time - blood cultures negative so far. - Ativan when necessary for anxiety -ST following; diet will be advanced per ST. Posttraumatic stress disorder - Continue amitriptyline Headaches - continue pain control. ADHD - Adderall DVT GI prophylaxis - Teds SCDs - Early aggressive mobilization - Pepcid Discharge Planning will continue with IV steroids for now. discharge planning within the next couple of days if the rash continues to improve. Nella Miramontes MD Oct 09, 2017 09:02
[2017-10-09] MEDS: FAMOTIDINE 20 MG/2 ML VIAL IV PUSH SCH ×2 (09:17→21:32)
[2017-10-09] MEDS: ACETAMINOPHEN/HYDROcodone 325 MG/5 MG TAB PO PRN ×3 (09:26→22:54)
[2017-10-09] MEDS: ONDANSETRON HCL 4 MG/2 ML VIAL IV PUSH PRN (16:05)
[2017-10-09] MEDS: ENOXAPARIN SODIUM 40 MG/0.4 ML SYRINGE SQ SCH (21:32)
[2017-10-10] VITALS (12 sets, daily range): BP systolic 93–136; BP diastolic 55–68; PULSE 50–80; RESP 16–20; TEMP 97.9–98.3; O2SAT 95–98
[2017-10-10] MEDS: SODIUM CHLOR 0.9% 1000 ML INJ 1,000 ML IV SCH ×3 (00:02→14:47)
[2017-10-10] MEDS: diphenhydrAMINE HCL 50 MG/ML VIAL IV PUSH SCH ×4 (03:32→21:13)
[2017-10-10] MEDS: LORazepam 2 MG/ML VIAL IV PUSH PRN ×3 (03:32→21:11)
[2017-10-10] MEDS: CHLORHEXIDINE GLUCONATE 2 % 1 PACK (2 CLOTHS) TOP SCH (03:32)
[2017-10-10] MEDS: ACETAMINOPHEN/HYDROcodone 325 MG/5 MG TAB PO PRN ×3 (05:07→18:08)
[2017-10-10] MEDS: methylPREDNISolone SOD SUCC 40 MG/1 ML VIAL IV PUSH SCH ×3 (05:08→18:08)
[2017-10-10] MEDS: DOCUSATE SODIUM 50 MG/SENNA 8.6 MG TAB PO SCH ×2 (09:00→21:00)
[2017-10-10] MEDS: SODIUM CHLORIDE 0.9% FLUSH 10 ML FLUSH IV FLUSH SCH ×2 (09:00→21:15)
[2017-10-10] MEDS: FAMOTIDINE 20 MG/2 ML VIAL IV PUSH SCH ×2 (10:03→21:14)
--- NOTE | 2017-10-10 10:24 | HHI.PR ---
Subjective Remarks 42-year-old female with history of migraines on Topamax, presents for evaluation of facial and all body rash. The patient noticed about a week ago a rash on her arms and legs. For last 3 days she has been having a worsening rash on her face. She describes facial pain as burning. She does not know of any new exposures. No tongue or lip swelling. No difficulty breathing. She reports having a fever 101F at home. She has tried Benadryl without relief. Denies IVDU. 10/07: Breathing comfortably and able to talk in full sentences. She is predominantly limited to the neck and face. No scalp involvement. Swollen and itchy per patient. No history of lupus or any autoimmune diseases. Unfortunately dermatologists NOT available for [facility] 10-08 in no acute distress. says that her difficulty swallowing is better. but still with rash and swelling of the face. afebrile with no sob. 10-09 in no acute distress. facial rash and swelling seems to be improving. remains afebrile. 10-10 RASH IS IMPROVING LESS SWELLING DW RN AND PT AND ST DIET HAS BEEN ADVANCED DW RN AND PT AM LABS Objective Vitals Vital Signs Date Time Temp Pulse Resp B/P (MAP) Pulse Ox O2 Delivery O2 Flow Rate FiO2 10/10/17 08:00 98.2 53 20 114/67 (83) 97 10/10/17 04:00 98.0 50 18 108/67 (81) 97 10/10/17 03:42 68 10/10/17 00:00 98.0 63 16 93/55 (68) 96 10/09/17 23:39 60 10/09/17 20:45 Room Air 10/09/17 20:00 98.0 79 18 106/67 (80) 96 10/09/17 20:00 76 10/09/17 16:08 98.4 84 20 94/55 (68) 98 10/09/17 16:00 73 10/09/17 12:06 98.3 82 21 116/68 (84) 100 10/09/17 12:00 74 I/O 10/09/17 10/09/17 10/09/17 10/10/17 10/10/17 10/10/17 07:00 15:00 23:00 07:00 15:00 23:00 Intake Total 240 ml 240 ml 720 ml Balance 240 ml 240 ml 720 ml Intake Oral 240 ml 240 ml 720 ml # Voids 3 5 4 # Bowel Movements 0 0 0 Result Diagram: 10/07/174 10/07/17 0354 Objective Remarks GENERAL: Awake alert oriented talkative and cooperative SKIN: Warm and dry. Less facial rash been before -states that she is not as red HEAD: Atraumatic. Normocephalic. EYES: Pupils equal and round. No scleral icterus. No injection or drainage. Extraocular muscles intact ENT: No nasal bleeding or discharge. Mucous membranes pink and moist. Tongue is midline NECK: Trachea midline. No JVD. Supple CARDIOVASCULAR: Regular rate and rhythm. S1 and S2 no S3 or S4 no heave or thrill or rub or gallop RESPIRATORY: No accessory muscle use. Clear to auscultation. Breath sounds equal bilaterally. GASTROINTESTINAL: Abdomen soft, non-tender, nondistended. Hepatic and splenic margins not palpable. MUSCULOSKELETAL: Extremities without clubbing, cyanosis, or edema. No obvious deformities. NEUROLOGICAL: Awake and alert. No obvious cranial nerve deficits. Motor grossly within normal limits. 4 out of 5 muscle strength in the arms and legs. Normal speech. PSYCHIATRIC: Appropriate mood and affect; insight and judgment normal. Procedures NONE Medications and IVs Current Medications Sodium Chloride (NS Flush) 2 ml UNSCH PRN IV FLUSH FLUSH AFTER USING IV ACCESS ; Start 10/06/17 at 18:00; Stop 10/06/17 at 22:08; Status DC Ketorolac Tromethamine (Toradol Inj) 30 mg ONCE ONCE IV PUSH Last administered on 10/06/17at 18:25; Start 10/06/17 at 18:00; Stop 10/06/17 at 18:01 ; Status DC Diphenhydramine HCl (Benadryl Inj) 25 mg ONCE ONCE IV PUSH Last administered on 10/06/17at 18:25; Start 10/06/17 at 18:00; Stop 10/06/17 at 18:01; Status DC Vancomycin/Sodium Chloride 200 ml @ 200 mls/hr ONCE ONCE IV Last administered on 10/06/17at 18:45; Start 10/06/17 at 18:00; Stop 10/06/17 at 18:59 ; Status DC Methylprednisolone Sodium Succinate (SoluMEDROL INJ) 125 mg ONCE ONCE IV PUSH Last administered on 10/06/17at 20:26; Start 10/06/17 at 20:30; Stop 10/06/17 at 20:31; Status DC Sodium Chloride 1,000 ml @ 124 mls/hr Q8H4M IV Last administered on 10/10/17at 07:54; Start 10/06/17 at 21:57 Sodium Chloride (NS Flush) 2 ml UNSCH PRN IV FLUSH FLUSH AFTER USING IV ACCESS ; Start 10/06/17 at 22:00 Sodium Chloride (NS Flush) 2 ml BID IV FLUSH Last administered on 10/09/17at 21: 33; Start 10/07/17 at 09:00 Acetaminophen (Tylenol) 650 mg Q6H PRN PO PAIN 1-10 AND/OR FEVER >101F Last administered on 10/09/17at 03:08; Start 10/06/17 at 22:00 Famotidine (Pepcid Inj) 20 mg Q12HR IV PUSH Last administered on 10/10/17at 10: 03; Start 10/07/17 at 09:00 Ondansetron HCl (Zofran Inj) 4 mg Q6H PRN IV PUSH NAUSEA OR VOMITING Last administered on 10/09/17at 16:05; Start 10/06/17 at 22:00 Albuterol/ Ipratropium (Duoneb Neb) 1 ampule Q2HR NEB PRN INH WHEEZING; Start 10/06/17 at 22:00 Enoxaparin Sodium (Lovenox Inj) 40 mg Q24H SQ Last administered on 10/09/17at 21 :32; Start 10/06/17 at 22:00 Miscellaneous Information 1 Q361D XX Last administered on 10/06/17at 22:00; Start 10/06/17 at 22:00 Chlorhexidine Gluconate (Chlorhexidine 2% Cloth) 3 pack Taper DAILY@04 TOP ; Start 10/07/17 at 04:00; Stop 10/03/18 at 03:59 Chlorhexidine Gluconate (Chlorhexidine 2% Cloth) 3 pack UNSCH PRN TOP HYGIENIC CARE; Start 10/06/17 at 22:00 Senna/Docusate Sodium (Mindi-Colace) 1 tab BID PO ; Start 10/07/17 at 09:00 Magnesium Hydroxide (Milk Of Magnesia Liq) 30 ml Q12H PRN PO Mild constipation ; Start 10/06/17 at 22:00 Sennosides (Senokot) 17.2 mg Q12H PRN PO Moderate constipation; Start 10/06/17 at 22:00 Bisacodyl (Dulcolax Supp) 10 mg DAILY PRN RECTAL SEVERE CONSITIPATION/ IF NPO; Start 10/06/17 at 22:00 Lactulose (Lactulose Liq) 30 ml DAILY PRN PO SEVERE CONSITIPATION/ IF PO; Start 10/06/17 at 22:00 Acetaminophen 100 ml @ 400 mls/hr UNSCH X1 IV ; Start 10/07/17 at 01:45; Stop 10/07/17 at 04:00; Status DC Methylprednisolone Sodium Succinate (SoluMEDROL INJ) 40 mg Q6HR IV PUSH Last administered on 10/10/17at 05:08; Start 10/07/17 at 06:00 Diphenhydramine HCl (Benadryl Inj) 50 mg Q4H PRN IV PUSH itching Last administered on 10/07/17at 08:41; Start 10/07/17 at 05:30; Stop 10/07/17 at 10:07 ; Status DC Diphenhydramine HCl (Benadryl Inj) 50 mg Q6H IV PUSH Last administered on at 10:03; Start 10/07/17 at 15:00 Lorazepam (Ativan Inj) 0.5 mg Q6H PRN IV PUSH anxiety Last administered on 10/10at 10:06; Start 10/07/17 at 10:15 Acetaminophen/ Hydrocodone Bitart ([place] 5-325 Mg) 1 tab Q6H PRN PO PAIN- IF NOT RELEIVED BY TYLEN Last administered on 10/10/17at 05:07; Start 10/09/17 at 09 :00 A/P Assessment and Plan Face and neck erythematous rash - Hold Topamax - continue IV solumedrol - Scheduled Benadryl and Pepcid - No evidence of airway compromise - No analytics analyst available at [facility], need OP follow up once DCd ( this was previously d/w Dr.Margaret Sanchez)- case management consulted to assist with outpatient f/u. - No evidence of staphylococcal skin infection at this time - blood cultures negative so far. - Ativan when necessary for anxiety -ST following; diet will be advanced per ST.- DIET BEING ADVANCED Posttraumatic stress disorder - Continue amitriptyline Headaches - continue pain control. ADHD - Adderall DVT GI prophylaxis - Teds SCDs - Early aggressive mobilization - Pepcid Discharge Planning will continue with IV steroids for now. discharge planning within the next couple of days if the rash continues to improve. Discharge Planning HOPEFULLY HOME NEXT 24-48 HOURS Calvin Gonzalez DO Oct 10, 2017 10:24
[2017-10-10] MEDS: GENTAMICIN SULFATE 0.3% OPHT SOLN 5 ML BTL EACH EYE SCH ×3 (12:00→21:15)
[2017-10-10] MEDS: ONDANSETRON HCL 4 MG/2 ML VIAL IV PUSH PRN (12:13)
[2017-10-10] MEDS ORDERED: clonazePAM 0.5 MG TAB PO SCH (13:00)
[2017-10-10] MEDS: clonazePAM 0.5 MG TAB PO SCH ×2 (14:47→18:08)
[2017-10-10] MEDS: ENOXAPARIN SODIUM 40 MG/0.4 ML SYRINGE SQ SCH (21:14)
[2017-10-10] MEDS: RESP: ALBUTEROL 2.5 MG/IPRATROPIUM 0.5 MG NEB (PRN) INH (21:42)
[2017-10-11] VITALS: BP 108/64; PULSE 69; RESP 18; TEMP 97.5; O2SAT 98
[2017-10-11] MEDS: methylPREDNISolone SOD SUCC 40 MG/1 ML VIAL IV PUSH SCH ×3 (00:19→13:37)
[2017-10-11] MEDS: GENTAMICIN SULFATE 0.3% OPHT SOLN 5 ML BTL EACH EYE SCH ×3 (00:20→09:23)
[2017-10-11] MEDS: SODIUM CHLOR 0.9% 1000 ML INJ 1,000 ML IV SCH ×2 (00:20→09:21)
[2017-10-11] MEDS: ACETAMINOPHEN/HYDROcodone 325 MG/5 MG TAB PO PRN ×3 (00:21→13:35)
[2017-10-11 03:00] VITALS: PULSE 44
[2017-10-11 04:00] VITALS: BP 130/70; PULSE 47; RESP 18; TEMP 97.6; O2SAT 97
[2017-10-11] MEDS: CHLORHEXIDINE GLUCONATE 2 % 1 PACK (2 CLOTHS) TOP SCH (04:00)
[2017-10-11] MEDS: diphenhydrAMINE HCL 50 MG/ML VIAL IV PUSH SCH ×2 (04:24→09:22)
[2017-10-11] MEDS: LORazepam 2 MG/ML VIAL IV PUSH PRN ×2 (04:31→10:46)
[2017-10-11 07:30] VITALS: PULSE 85
[2017-10-11 08:00] VITALS: BP 129/72; PULSE 45; RESP 20; TEMP 98.2; O2SAT 95
[2017-10-11] MEDS: DOCUSATE SODIUM 50 MG/SENNA 8.6 MG TAB PO SCH (09:21)
[2017-10-11] MEDS: FAMOTIDINE 20 MG/2 ML VIAL IV PUSH SCH (09:22)
[2017-10-11] MEDS: clonazePAM 0.5 MG TAB PO SCH ×2 (09:22→13:36)
[2017-10-11] MEDS: SODIUM CHLORIDE 0.9% FLUSH 10 ML FLUSH IV FLUSH SCH (09:22)
--- NOTE | 2017-10-11 10:11 | HHI.PR ---
Subjective Remarks 42-year-old female with history of migraines on Topamax, presents for evaluation of facial and all body rash. The patient noticed about a week ago a rash on her arms and legs. For last 3 days she has been having a worsening rash on her face. She describes facial pain as burning. She does not know of any new exposures. No tongue or lip swelling. No difficulty breathing. She reports having a fever 101F at home. She has tried Benadryl without relief. Denies IVDU. 10/07: Breathing comfortably and able to talk in full sentences. She is predominantly limited to the neck and face. No scalp involvement. Swollen and itchy per patient. No history of lupus or any autoimmune diseases. Unfortunately dermatologists NOT available for [facility] 10-08 in no acute distress. says that her difficulty swallowing is better. but still with rash and swelling of the face. afebrile with no sob. 10-09 in no acute distress. facial rash and swelling seems to be improving. remains afebrile. 10-10 RASH IS IMPROVING LESS SWELLING DW RN AND PT AND ST DIET HAS BEEN ADVANCED DW RN AND PT AM LABS 10-11 RASH IS BETTER DC TO HOME TODAY DW RN AND PT Objective Vitals Vital Signs Date Time Temp Pulse Resp B/P (MAP) Pulse Ox O2 Delivery O2 Flow Rate FiO2 10/11/17 04:00 97.6 47 18 130/70 (90) 97 10/11/17 03:00 44 10/11/17 00:00 97.5 69 18 108/64 (79) 98 10/10/17 23:00 64 10/10/17 20:00 98.3 67 20 136/63 (87) 95 10/10/17 19:00 58 10/10/17 19:00 98 Room Air 10/10/17 16:00 98.3 78 20 123/65 (84) 96 10/10/17 15:00 78 10/10/17 14:00 74 10/10/17 12:00 97.9 80 20 112/68 (83) 98 I/O 10/10/17 10/10/17 10/10/17 10/11/17 10/11/17 10/11/17 07:00 15:00 23:00 07:00 15:00 23:00 Intake Total 720 ml 1200 ml Balance 720 ml 1200 ml Intake Oral 720 ml 1200 ml # Voids 4 4 6 # Bowel Movements 0 0 Result Diagram: 10/07/17 0354 10/07/17 0354 Other Results Laboratory Tests Test 10/10/17 20:24 Erythrocyte Sedimentation Rate 3 mm/hr C-Reactive Protein LESS THAN 0.29 MG/DL Objective Remarks GENERAL: Awake alert oriented talkative and cooperative SKIN: Warm and dry. Less facial rash been before -states that she is not as red - MUCH IMPROVED HEAD: Atraumatic. Normocephalic. EYES: Pupils equal and round. No scleral icterus. No injection or drainage. Extraocular muscles intact ENT: No nasal bleeding or discharge. Mucous membranes pink and moist. Tongue is midline NECK: Trachea midline. No JVD. Supple CARDIOVASCULAR: Regular rate and rhythm. S1 and S2 no S3 or S4 no heave or thrill or rub or gallop RESPIRATORY: No accessory muscle use. Clear to auscultation. Breath sounds equal bilaterally. GASTROINTESTINAL: Abdomen soft, non-tender, nondistended. Hepatic and splenic margins not palpable. MUSCULOSKELETAL: Extremities without clubbing, cyanosis, or edema. No obvious deformities. NEUROLOGICAL: Awake and alert. No obvious cranial nerve deficits. Motor grossly within normal limits. 4 out of 5 muscle strength in the arms and legs. Normal speech. PSYCHIATRIC: Appropriate mood and affect; insight and judgment normal. Procedures NONE Medications and IVs Current Medications Sodium Chloride (NS Flush) 2 ml UNSCH PRN IV FLUSH FLUSH AFTER USING IV ACCESS ; Start 10/06/17 at 18:00; Stop 10/06/17 at 22:08; Status DC Ketorolac Tromethamine (Toradol Inj) 30 mg ONCE ONCE IV PUSH Last administered on 10/06/17at 18:25; Start 10/06/17 at 18:00; Stop 10/06/17 at 18:01 ; Status DC Diphenhydramine HCl (Benadryl Inj) 25 mg ONCE ONCE IV PUSH Last administered on 10/06/17at 18:25; Start 10/06/17 at 18:00; Stop 10/06/17 at 18:01; Status DC Vancomycin/Sodium Chloride 200 ml @ 200 mls/hr ONCE ONCE IV Last administered on 10/06/17at 18:45; Start 10/06/17 at 18:00; Stop 10/06/17 at 18:59 ; Status DC Methylprednisolone Sodium Succinate (SoluMEDROL INJ) 125 mg ONCE ONCE IV PUSH Last administered on 10/06/17at 20:26; Start 10/06/17 at 20:30; Stop 10/06/17 at 20:31; Status DC Sodium Chloride 1,000 ml @ 124 mls/hr Q8H4M IV Last administered on 10/11/17 09:21; Start 10/06/17 at 21:57 Sodium Chloride (NS Flush) 2 ml UNSCH PRN IV FLUSH FLUSH AFTER USING IV ACCESS ; Start 10/06/17 at 22:00 Sodium Chloride (NS Flush) 2 ml BID IV FLUSH Last administered on 10/11/17 09: 22; Start 10/07/17 at 09:00 Acetaminophen (Tylenol) 650 mg Q6H PRN PO PAIN 1-10 AND/OR FEVER >101F Last administered on 10/09/17 03:08; Start 10/06/17 at 22:00 Famotidine (Pepcid Inj) 20 mg Q12HR IV PUSH Last administered on 10/11/17 09: 22; Start 10/07/17 at 09:00 Ondansetron HCl (Zofran Inj) 4 mg Q6H PRN IV PUSH NAUSEA OR VOMITING Last administered on 10/10/17 12:13; Start 10/06/17 at 22:00 Albuterol/ Ipratropium (Duoneb Neb) 1 ampule Q2HR NEB PRN INH WHEEZING Last administered on 10/10/17at 21:42; Start 10/06/17 at 22:00 Enoxaparin Sodium (Lovenox Inj) 40 mg Q24H SQ Last administered on 10/10/17at 21 :14; Start 10/06/17 at 22:00 Miscellaneous Information 1 Q361D XX Last administered on 10/06/17at 22:00; Start 10/06/17 at 22:00 Chlorhexidine Gluconate (Chlorhexidine 2% Cloth) 3 pack Taper DAILY@04 TOP ; Start 10/07/17 at 04:00; Stop 10/03/18 at 03:59 Chlorhexidine Gluconate (Chlorhexidine 2% Cloth) 3 pack UNSCH PRN TOP HYGIENIC CARE; Start 10/06/17 at 22:00 Senna/Docusate Sodium (Mindi-Colace) 1 tab BID PO Last administered on at 09:21; Start 10/07/17 at 09:00 Magnesium Hydroxide (Milk Of Magnesia Liq) 30 ml Q12H PRN PO Mild constipation ; Start 10/06/17 at 22:00 Sennosides (Senokot) 17.2 mg Q12H PRN PO Moderate constipation; Start 10/06/17 at 22:00 Bisacodyl (Dulcolax Supp) 10 mg DAILY PRN RECTAL SEVERE CONSITIPATION/ IF NPO; Start 10/06/17 at 22:00 Lactulose (Lactulose Liq) 30 ml DAILY PRN PO SEVERE CONSITIPATION/ IF PO; Start 10/06/17 at 22:00 Acetaminophen 100 ml @ 400 mls/hr UNSCH X1 IV ; Start 10/07/17 at 01:45; Stop 10/07/17 at 04:00; Status DC Methylprednisolone Sodium Succinate (SoluMEDROL INJ) 40 mg Q6HR IV PUSH Last administered on 10/11/17at 06:47; Start 10/07/17 at 06:00 Diphenhydramine HCl (Benadryl Inj) 50 mg Q4H PRN IV PUSH itching Last administered on 10/07/17at 08:41; Start 10/07/17 at 05:30; Stop 10/07/17 at 10:07 ; Status DC Diphenhydramine HCl (Benadryl Inj) 50 mg Q6H IV PUSH Last administered on at 09:22; Start 10/07/17 at 15:00 Lorazepam (Ativan Inj) 0.5 mg Q6H PRN IV PUSH anxiety Last administered on 10/11at 04:31; Start 10/07/17 at 10:15 Acetaminophen/ Hydrocodone Bitart ([place] 5-325 Mg) 1 tab Q6H PRN PO PAIN- IF NOT RELEIVED BY TYLEN Last administered on 10/11/17at 06:47; Start 10/09/17 at 09 :00 Clonazepam (KlonoPIN) 0.1 mg TID PO ; Start 10/10/17 at 13:00; Stop 10/10/17 at 13:00; Status DC Gentamicin Sulfate (Gentamicin Opht 0.3% Soln) 1 drop Q4HR EACH EYE Last administered on 10/11/17at 09:23; Start 10/10/17 at 12:00 Clonazepam (KlonoPIN) 0.25 mg TID PO Last administered on 10/11/17at 09:22; Start 10/10/17 at 13:00 A/P Assessment and Plan Face and neck erythematous rash - Hold Topamax - continue IV solumedrol - SWITCH TO PREDNISONE - Scheduled Benadryl and Pepcid - No evidence of airway compromise - No laboratory technician available at [facility], need OP follow up once DCd ( this was previously d/w Dr.Margaret Sanchez)- case management consulted to assist with outpatient f/u. - No evidence of staphylococcal skin infection at this time - blood cultures negative so far. - Ativan when necessary for anxiety -ST following; diet will be advanced per ST.- DIET BEING ADVANCED Posttraumatic stress disorder - Continue amitriptyline Headaches - continue pain control. ADHD - Adderall DVT GI prophylaxis - Teds SCDs - Early aggressive mobilization - Pepcid Discharge Planning SWITCH TO PO MEDS AND DC TO HOME Discharge Planning DC TO HOME Calvin Gonzalez DO Oct 11, 2017 10:11
[2017-10-11] MEDS ORDERED: CLON.5 PO (10:14)
[2017-10-11] MEDS ORDERED: PRED5PAK PO (10:14)
[2017-10-11] MEDS ORDERED: HYDR-3516 PO (10:14)
[2017-10-11] MEDS ORDERED: FAMO1TAB37 PO (10:14)
[2017-10-11] MEDS ORDERED: AMIT10TA6 PO (10:18)
[2017-10-11] MEDS ORDERED: ADDE20 PO ×2 (10:18→13:27)
--- NOTE | 2017-10-11 10:20 | HHI.DS ---
Discharge Summary Admission Date Oct 06, 2017 at 20:29 Discharge Date: Oct 11, 2017 Admitting Diagnosis face rash/edema, rule out [place] syndrome (1) Rash of face ICD Code: R21 - Rash and other nonspecific skin eruption Diagnosis: Principal Status: Acute (2) Edema of face ICD Code: R60.0 - Localized edema Diagnosis: Principal Status: Acute (3) Migraine variant with headache ICD Code: G43.809 - Other migraine, not intractable, without status migrainosus Diagnosis: Secondary Status: Acute Procedures NONE Brief History - From Admission 42-year-old female with history of migraines on Topamax, presents for evaluation of facial and all body rash. The patient noticed about a week ago a rash on her arms and legs. For last 3 days she has been having a worsening rash on her face. She describes facial pain as burning. She does not know of any new exposures. No tongue or lip swelling. No difficulty breathing. She reports having a fever 101F at home. She has tried Benadryl without relief. Denies IVDU. CBC/BMP: 10/07/17 0354 10/07/17 0354 Significant Findings Laboratory Tests Test 10/10/17 20:24 PE at Discharge GENERAL: Awake alert oriented talkative and cooperative SKIN: Warm and dry. Less facial rash been before -states that she is not as red - MUCH IMPROVED HEAD: Atraumatic. Normocephalic. EYES: Pupils equal and round. No scleral icterus. No injection or drainage. Extraocular muscles intact ENT: No nasal bleeding or discharge. Mucous membranes pink and moist. Tongue is midline NECK: Trachea midline. No JVD. Supple CARDIOVASCULAR: Regular rate and rhythm. S1 and S2 no S3 or S4 no heave or thrill or rub or gallop RESPIRATORY: No accessory muscle use. Clear to auscultation. Breath sounds equal bilaterally. GASTROINTESTINAL: Abdomen soft, non-tender, nondistended. Hepatic and splenic margins not palpable. MUSCULOSKELETAL: Extremities without clubbing, cyanosis, or edema. No obvious deformities. NEUROLOGICAL: Awake and alert. No obvious cranial nerve deficits. Motor grossly within normal limits. 4 out of 5 muscle strength in the arms and legs. Normal speech. PSYCHIATRIC: Appropriate mood and affect; insight and judgment normal. Hospital Course 42-year-old female with history of migraines on Topamax, presents for evaluation of facial and all body rash. The patient noticed about a week ago a rash on her arms and legs. For last 3 days she has been having a worsening rash on her face. She describes facial pain as burning. She does not know of any new exposures. No tongue or lip swelling. No difficulty breathing. She reports having a fever 101F at home. She has tried Benadryl without relief. Denies IVDU. 10/07: Breathing comfortably and able to talk in full sentences. She is predominantly limited to the neck and face. No scalp involvement. Swollen and itchy per patient. No history of lupus or any autoimmune diseases. Unfortunately dermatologists NOT available for [place] 10-08 in no acute distress. says that her difficulty swallowing is better. but still with rash and swelling of the face. afebrile with no sob. 10-09 in no acute distress. facial rash and swelling seems to be improving. remains afebrile. 10-10 RASH IS IMPROVING LESS SWELLING DW RN AND PT AND ST DIET HAS BEEN ADVANCED DW RN AND PT AM LABS 10-11 RASH IS BETTER DC TO HOME TODAY DW RN AND PT DC TO HOME ON PO MEDS SEE RX Pt Condition on Discharge: Good Discharge Disposition: Discharge Home Discharge Time: <= 30 minutes Discharge Instructions DIET: Follow Instructions for: As Tolerated, No Restrictions, Heart Healthy Diet Speech Therapy-Diet Recommends: Regular Activities you can perform: Regular-No Restrictions, Weight Bearing as Norma Follow up Referrals: Dermatology - 3-5 Days PCP Follow-up - 3-5 Days New Medications: Amitriptyline (Amitriptyline) 10 Mg Tab 10 MG PO HS for Control Depression, #30 TAB 0 Refills Famotidine (Pepcid) 20 Mg Tab 20 MG PO BID for Allergies, #60 TAB 0 Refills Prednisone (21) 5 mg tab Dose Pack (Prednisone (21) 5 mg tab Dose Pack) 5 Mg Dspk 5 MG PO DIRECTED for Inflammation, #1 DSPK 0 Refills Clonazepam (Klonopin) 0.5 Mg Tab 0.25 MG PO TID for Anxiety, #90 TAB Hydrocodone/Acetaminophen (Hydrocodone-Acetamin 5-325 mg) 5 Mg-325 Mg Tablet 1 TAB PO Q6H PRN for PAIN- IF NOT RELEIVED BY [facility], #20 TAB Continued Medications: Amitriptyline (Amitriptyline) Unknown Strength Tab Unknown Dose PO HS for Control Depression, #30 TAB 0 Refills Amphetamine-Dextroamphetamine (Adderall) 20 Mg Tab 25 MG PO BID for Hyperactivity Control, #60 TAB 0 Refills (This prescription has been renewed) Avoid late evening doses. Space doses at least 4 to 6 hours if more than once/day dosing. Discontinued Medications: Clonazepam (Klonopin) 0.5 Mg Tab 0.1 MG PO TID, #60 TAB 0 Refills Topiramate (Topamax) Unknown Strength Tab Unknown Dose PO BID for Control Seizures, #60 TAB 0 Refills Calvin Gonzalez DO Oct 11, 2017 10:20
[2017-10-11 11:48] LABS: AUTOMATED NEUTROPHIL # 15.1 TH/MM3 (1.8-7.7); BASOPHIL % 0.1 % (0.0-2.0); HEMATOCRIT 39.9 % (35.0-46.0); HEMOGLOBIN 12.8 GM/DL (11.6-15.3); LYMPH % 7.9 % (9.0-44.0); LYMPHOCYTE # 1.3 TH/MM3 (1.0-4.8); MEAN CELL VOLUME 94.5 FL (80.0-100.0); MEAN CORPUSCULAR HEMOGLOBIN 30.2 PG (27.0-34.0); MEAN PLATELET VOLUME 10.5 FL (7.0-11.0); MONO % 2.1 % (0.0-8.0); MONOCYTE # 0.4 TH/MM3 (0-0.9); NEUT % 89.9 % (16.0-70.0); PLATELET COUNT 237 TH/MM3 (150-450); RED BLOOD COUNT 4.22 MIL/MM3 (4.00-5.30); RED CELL DISTRIBUTION WIDTH 14.3 % (11.6-17.2); WHITE BLOOD COUNT 16.8 TH/MM3 (4.0-11.0)
[2017-10-11] MEDS: RESP: ALBUTEROL 2.5 MG/IPRATROPIUM 0.5 MG NEB (PRN) INH (11:56)
[2017-10-11 12:00] VITALS: BP 112/68; PULSE 87; RESP 20; TEMP 97.4; O2SAT 98
[2017-10-11 12:15] LABS: AST (GOT) 22 U/L (15-37); BICARBONATE 26.5 MEQ/L (21.0-32.0); BLOOD UREA NITROGEN 10 MG/DL (7-18); CALCIUM 8.3 MG/DL (8.5-10.1); CHLORIDE 105 MEQ/L (98-107); CREATININE 0.73 MG/DL (0.50-1.00); GLOMERULAR FILTRATION RATE 87 ML/MIN (>89); GLUCOSE,RANDOM 128 MG/DL (74-106); MAGNESIUM 2.1 MG/DL (1.5-2.5); SODIUM (NA) 140 MEQ/L (136-145)
[2017-10-11 12:26] LABS: ALKALINE PHOSPHATASE 58 U/L (45-117); ALT (GPT) 50 U/L (10-53); FREE T4 0.61 NG/DL (0.76-1.46); PHOSPHORUS 2.6 MG/DL (2.5-4.9); TOTAL BILIRUBIN ADULT 0.2 MG/DL (0.2-1.0)
[2017-10-11] MEDS ORDERED: ADDE25CA PO (13:27)
[2017-10-11] MEDS ORDERED: ONDANSETRON ODT 4 MG TAB PO ONE (14:15)
[2017-10-12 16:11] LABS: HEMOGLOBIN A1C 5.8 % (4.3-6.0)
== END 2017-10-11 17:23 | disposition home or self-care (01) | DRG 607 ==
LOC: NEPD 16:33 → NEDA 20:29 → HIME 23:00 → N04B 10-07 15:28
PROVIDERS: ADMIT Internal Medicine; ATTEND Internal Medicine
DX: R21 Rash and other nonspecific skin eruption (principal); R13.10 Dysphagia, unspecified; L53.9 Erythematous condition, unspecified; L29.9 Pruritus, unspecified; R60.0 Localized edema; G43.909 Migraine, unspecified, not intractable, without status migrainosus; F43.10 Post-traumatic stress disorder, unspecified; F90.9 Attention-deficit hyperactivity disorder, unspecified type; Z72.0 Tobacco use
CPT/HCPCS: 80053; 81001; 83036; 83605; 83735; 84100; 84439; 84443; 85025; 85610; 85652; 85730; 86140; 87040; 87641; 94150; 94640; 94664; 96365; 96375; J1200; J1650; J1885; J2060; J2405; J2920; J2930; J3370; J7030

== ENCOUNTER 2017-10-11 21:41 | Observation (INO) | payer SELFPAY ==
[~2017-10-11] VITALS: Ht 170.2 cm; Wt 48.5 kg
[~2017-10-11 21:41] MED LIST changes: +ADDE25CA PO; +FAMO1TAB37 PO; +HYDR-3516 PO; +PRED5PAK PO
[2017-10-11 21:42] VITALS: BP 131/80; PULSE 65; RESP 18; TEMP 98.4; O2SAT 99
[2017-10-11 22:13] VITALS: RESP 32
[2017-10-11 22:23] VITALS: RESP 18; O2SAT 98
[2017-10-11 22:30] VITALS: O2SAT 98
[2017-10-11] MEDS ORDERED: diphenhydrAMINE HCL 50 MG/ML VIAL IVP ONE (22:30)
[2017-10-11] MEDS ORDERED: methylPREDNISolone SOD SUCC 125 MG/2 ML VIAL IV PUSH ONE (22:30)
[2017-10-11] MEDS ORDERED: SODIUM CHLORIDE 0.9% FLUSH 10 ML FLUSH IV FLUSH PRN (22:30)
[2017-10-11] MEDS ORDERED: RESP: ALBUTEROL 2.5 MG/3 ML NEB (SCH) INH ONE (22:30)
[2017-10-11] MEDS ORDERED: FAMOTIDINE 20 MG/2 ML VIAL IV PUSH ONE (22:30)
[2017-10-11] MEDS ORDERED: ONDANSETRON HCL 4 MG/2 ML VIAL IV PUSH ONE (23:15)
--- NOTE | 2017-10-11 23:17 | PD ---
HPI Chief Complaint: Respiratory Distress Time Seen by Provider: 22:22 Travel History International Travel<30 days: No Contact w/Intl Traveler<30days: No Traveled to known affect area: No History of Present Illness HPI 42-year-old female patient who was recently admitted for allergy to Topamax, released at 2 PM today, sent back to the ER today because of worsening and shortness of breath, feels like her whole body is getting swollen again. She states that she had been given medications prior to leaving. She had not had a chance to get her medication prescriptions filled yet. She also complains of nausea, abdominal cramping. Modifying Factors: None Associated Signs & Symptoms: Shortness of breath, swelling of the entire body, nausea, abdominal cramping Risk Factors: Recently released after allergy to Topamax [facility] Past Medical History ADHD: Yes Asthma: Yes Anxiety: Yes Diminished Hearing: No Musculoskeletal: Yes (PAIN IN L5-S1, PAIN IN NECK) Psychiatric: Yes (PTSD) Immunizations Current: Yes Migraines: Yes ?: Unknown : 1 Para: 1 Past Surgical History Section: Yes Social History Alcohol Use: No Tobacco Use: Yes (occ) Substance Use: No Allergies-Medications (Allergen,Severity, Reaction): Coded Allergies: No Known Allergies (Verified Adverse Reaction, Unknown, 10/06/17) Reported Meds & Prescriptions Reported Meds & Active Scripts Active Adderall (Amphetamine-Dextroamphetamine) 20 Mg Tab 20 Mg PO DAILY@1300 Take at 12 noon. Adderall Xr 24 HR (Amphetamine-Dextroamphetamine ER 24 HR) 25 Mg Cap 50 Mg PO DAILY Once daily in the morning. Amitriptyline (Amitriptyline HCl) 10 Mg Tab 10 Mg PO HS Pepcid (Famotidine) 20 Mg Tab 20 Mg PO BID Prednisone (21) 5 mg tab Dose Pack (Prednisone) 5 Mg Dspk 5 Mg PO DIRECTED Klonopin (Clonazepam) 0.5 Mg Tab 0.25 Mg PO TID Hydrocodone-Acetamin 5-325 mg (Hydrocodone/Acetaminophen) 5 Mg-325 Mg Tablet 1 Tab PO Q6H PRN Reported Amitriptyline (Amitriptyline HCl) Unknown Strength Tab Unknown Dose PO HS Review of Systems Except as stated in HPI: all other systems reviewed are Neg Physical Exam Narrative GENERAL: Well-developed middle age female patient currently in mild respiratory distress. Awake and oriented 3. SKIN: Focused skin assessment warm/dry. HEAD: Atraumatic. Normocephalic. EYES: Pupils equal and round. No scleral icterus. No injection or drainage. ENT: Mucosa pink and moist. No erythema or exudates. No uvular edema. No uvular , palatal, or tonsillar deviation. Airway patent. I do not see any signs of angioedema. NECK: Trachea midline. No JVD. Supple. CARDIOVASCULAR: Regular rate and rhythm. No murmur appreciated. RESPIRATORY: Mild accessory muscle use. Wheezing. Breath sounds equal bilaterally. GASTROINTESTINAL: Abdomen soft, non-tender, nondistended. Hepatic and splenic margins not palpable. MUSCULOSKELETAL: No obvious deformities. No clubbing. No cyanosis. No edema. NEUROLOGICAL: Awake and alert. No obvious cranial nerve deficits. Motor grossly within normal limits. Normal speech. PSYCHIATRIC: Appropriate mood and affect; insight and judgment normal. Data Data Last Documented VS Vital Signs Date Time Temp Pulse Resp B/P (MAP) Pulse Ox O2 Delivery O2 Flow Rate FiO2 10/11/17 22:30 98 21 10/11/17 22:23 18 Room Air 10/11/17 21:42 98.4 65 Orders Orders Ecg Monitoring (10/11/17 22:22) Iv Access Insert/Monitor (10/11/17 22:22) Oximetry (10/11/17 22:22) Diphenhydramine Inj (Benadryl Inj) (10/11/17 22:30) Methylprednisolone So Succ Inj (Solumedr (10/11/17 22:30) Famotidine Inj (Pepcid Inj) (10/11/17 22:30) Albuterol Neb (Albuterol Neb) (10/11/17 22:30) Sodium Chloride 0.9% Flush (Ns Flush) (10/11/17 22:30) Ondansetron Inj (Zofran Inj) (10/11/17 23:15) Complete Blood Count With Diff (10/11/17 23:08) Comprehensive Metabolic Panel (10/11/17 23:08) Lipase (10/11/17 23:08) Urinalysis - C+S If Indicated (10/12/17 00:11) Chest, Single Ap (10/12/17 00:11) Admit Order (Ed Use Only) (10/12/17 00:43) Labs Laboratory Tests Test 10/11/17 23:00 White Blood Count 20.7 TH/MM3 Red Blood Count 3.75 MIL/MM3 Hemoglobin 11.4 GM/DL Hematocrit 34.5 % Mean Corpuscular Volume 92.1 FL Mean Corpuscular Hemoglobin 30.5 PG Mean Corpuscular Hemoglobin Concent 33.1 % Red Cell Distribution Width 13.8 % Platelet Count 304 TH/MM3 Mean Platelet Volume 9.1 FL Neutrophils (%) (Auto) 85.1 % Lymphocytes (%) (Auto) 8.6 % Monocytes (%) (Auto) 6.0 % Eosinophils (%) (Auto) 0.0 % Basophils (%) (Auto) 0.3 % Neutrophils # (Auto) 17.6 TH/MM3 Lymphocytes # (Auto) 1.8 TH/MM3 Monocytes # (Auto) 1.2 TH/MM3 Eosinophils # (Auto) 0.0 TH/MM3 Basophils # (Auto) 0.1 TH/MM3 CBC Comment AUTO DIFF Differential Comment AUTO DIFF CONFIRMED Platelet Estimate NORMAL Platelet Morphology Comment NORMAL Red Cell Morphology Comment NORMAL Blood Urea Nitrogen 12 MG/DL Creatinine 0.68 MG/DL Random Glucose 114 MG/DL Total Protein 5.8 GM/DL Albumin 2.9 GM/DL Calcium Level 7.9 MG/DL Alkaline Phosphatase 59 U/L Aspartate Amino Transf (AST/SGOT) 19 U/L Alanine Aminotransferase (ALT/SGPT) 45 U/L Total Bilirubin 0.1 MG/DL Sodium Level 142 MEQ/L Potassium Level 4.1 MEQ/L Chloride Level 109 MEQ/L Carbon Dioxide Level 26.7 MEQ/L Anion Gap 6 MEQ/L Estimat Glomerular Filtration Rate 94 ML/MIN Lipase 79 U/L [facility] Medical Decision Making Medical Screen Exam Complete: Yes Emergency Medical Condition: Yes Medical Record Reviewed: Yes Interpretation(s) Laboratory Tests Test 10/11/17 23:00 White Blood Count 20.7 TH/MM3 (4.0-11.0) Red Blood Count 3.75 MIL/MM3 (4.00-5.30) Hemoglobin 11.4 GM/DL (11.6-15.3) Hematocrit 34.5 % (35.0-46.0) Neutrophils (%) (Auto) 85.1 % (16.0-70.0) Lymphocytes (%) (Auto) 8.6 % (9.0-44.0) Neutrophils # (Auto) 17.6 TH/MM3 (1.8-7.7) Monocytes # (Auto) 1.2 TH/MM3 (0-0.9) Random Glucose 114 MG/DL (74-106) Total Protein 5.8 GM/DL (6.4-8.2) Albumin 2.9 GM/DL (3.4-5.0) Calcium Level 7.9 MG/DL (8.5-10.1) Total Bilirubin 0.1 MG/DL (0.2-1.0) Chloride Level 109 MEQ/L (98-107) Differential Diagnosis Allergic reaction versus angioedema Narrative Course Patient was wheezing initially, there is concern of worsening allergic reaction and she was treated with Benadryl, Solu-Medrol, and epinephrine in the ER. She was also given nebulizer. On reevaluation after treatment, she is feeling improved. However, considering the recent release for allergic reaction and worsening in symptoms, at this point my plan would be to admit her as an observation for worsening in symptoms. Case was discussed with Dr. Wayne for admission. Diagnosis Primary Impression: Allergic reaction caused by a drug Admitting Information Admitting Physician Requests: Admit Chiquis Nicholson MD Oct 11, 2017 23:17
[2017-10-11 23:33] LABS: AUTOMATED NEUTROPHIL # 17.6 TH/MM3 (1.8-7.7); BASOPHIL # 0.1 TH/MM3 (0-0.2); BASOPHIL % 0.3 % (0.0-2.0); HEMATOCRIT 34.5 % (35.0-46.0); HEMOGLOBIN 11.4 GM/DL (11.6-15.3); LYMPH % 8.6 % (9.0-44.0); LYMPHOCYTE # 1.8 TH/MM3 (1.0-4.8); MEAN CELL VOLUME 92.1 FL (80.0-100.0); MEAN CORPUSCULAR HEMOGLOBIN 30.5 PG (27.0-34.0); MEAN CORPUSCULAR HGB CONC 33.1 % (32.0-36.0); MEAN PLATELET VOLUME 9.1 FL (7.0-11.0); MONOCYTE # 1.2 TH/MM3 (0-0.9); NEUT % 85.1 % (16.0-70.0); PLATELET COUNT 304 TH/MM3 (150-450); RED BLOOD COUNT 3.75 MIL/MM3 (4.00-5.30); RED CELL DISTRIBUTION WIDTH 13.8 % (11.6-17.2); WHITE BLOOD COUNT 20.7 TH/MM3 (4.0-11.0)
[2017-10-11 23:52] LABS: ALBUMIN 2.9 GM/DL (3.4-5.0); AST (GOT) 19 U/L (15-37); BICARBONATE 26.7 MEQ/L (21.0-32.0); BLOOD UREA NITROGEN 12 MG/DL (7-18); CALCIUM 7.9 MG/DL (8.5-10.1); CHLORIDE 109 MEQ/L (98-107); CREATININE 0.68 MG/DL (0.50-1.00); GLOMERULAR FILTRATION RATE 94 ML/MIN (>89); GLUCOSE,RANDOM 114 MG/DL (74-106); SODIUM (NA) 142 MEQ/L (136-145)
[2017-10-11 23:55] LABS: ALKALINE PHOSPHATASE 59 U/L (45-117); ALT (GPT) 45 U/L (10-53); TOTAL BILIRUBIN ADULT 0.1 MG/DL (0.2-1.0); TOTAL PROTEIN 5.8 GM/DL (6.4-8.2)
[2017-10-12] VITALS (7 sets, daily range): BP systolic 109–124; BP diastolic 60–82; PULSE 48–63; RESP 16–20; TEMP 97.1–98.8; O2SAT 95–100
[2017-10-12] MEDS ORDERED: ACETAMINOPHEN 325 MG TAB PO PRN (01:15)
[2017-10-12] MEDS ORDERED: BISACODYL 10 MG SUPP RECTAL PRN (01:15)
[2017-10-12] MEDS ORDERED: RESP: ALBUTEROL 2.5 MG/IPRATROPIUM 0.5 MG NEB (PRN) NEB (01:15)
[2017-10-12] MEDS ORDERED: MAGNESIUM HYDROXIDE SUSP 30 ML CUP PO PRN (01:15)
[2017-10-12] MEDS ORDERED: SENNOSIDES 8.6 MG TAB PO PRN (01:15)
--- NOTE | 2017-10-12 01:22 | RADRPT ---
EXAM DATE/TIME: 10/12/2017 00:53 [place] COMPARISON: No previous studies available for comparison. INDICATIONS : Short of breath. MEDICAL HISTORY : None. SURGICAL HISTORY : None. ENCOUNTER: Initial ACUITY: 1 day PAIN SCORE: 0/10 LOCATION: Bilateral chest FINDINGS: A single view of the chest demonstrates basilar airspace disease. No effusion or pneumothorax. Heart size is within normal limits. CONCLUSION: 1. Mild basilar airspace disease. No significant effusion. No pneumothorax. Alexis Cardenas MD on October 12, 2017 at 1:16 Board Certified Radiologist. This report was verified electronically.
[2017-10-12 01:46] LABS: BILIRUBIN, URINE NEG (NEG); BLOOD, URINE NEG (NEG); GLUCOSE,URINE NEG (NEG); KETONE, URINE NEG (NEG); MUCUS URINE FEW /lpf (OCC); NITRITE,URINE NEG (NEG); PH, URINE 7.5 (5.0-8.5); SQUAMOUS EPITHELIAL CELL URINE <1 /hpf (0-5); URINE COLOR LIGHT-YELLOW (YELLW/STRAW); URINE LEUKOCYTE ESTERASE NEG (NEG)
[2017-10-12] MEDS: diphenhydrAMINE HCL 50 MG/ML VIAL IV PUSH PRN (01:50)
[2017-10-12] MEDS: PROCHLORPERAZINE INJ 10 MG/2 ML VIAL IV PUSH PRN (01:50)
--- NOTE | 2017-10-12 03:58 | HHI.HP ---
HPI [facility] Primary [facility] Physician No Primary Care Physician Admission Diagnosis allergic reaction/leukocytosis Diagnoses: (1) Allergic reaction caused by a drug Diagnosis: Principal (2) Migraine Diagnosis: Principal (3) Leukocytosis Diagnosis: Principal Travel History International Travel<30 Days: No Contact w/Intl Traveler <30 Da: No Traveled to Known Affected Are: No History of Present Illness This is a 42-year-old female with a PMH of Migraine who presented to the ER with complaints of throat swelling and SOB. Recent admit 10/06-10/11/17 for similar complaints, noted to have extensive body rash and facial edema thought to be due to Topamax, s/p Steroids and Benadryl w/ improvement. Was d/c'd home yesterday afternoon, states she went home and had progressive SOB, throat tightness and worsening edema of lower extremities and back. Topamax discontinued, however states took Amitriptyline at home in addition to her regular medications. Now w/ complaints of severe migraine, pain 10/10, non- radiating, associated w/ nausea and photophobia. On arrival, BP 131/80, HR 65, O2 sat 99% on RA, Afebrile. On exam, patient noted to have some wheezing. WBC 20.7, previously 16.8 prior to discharge. Chemistry essentially unremarkable. CXR with mild basilar airspace disease, no significant effusion. S/p Albuterol , Benadryl, Pepcid and Solu-Medrol in ER w/ some improvement, however reports persistent SOB and sensation of throat swelling. Review of Systems Except as stated in HPI: all other systems reviewed are Neg ROS: 14 point review of systems otherwise negative. Past Family Social History Past Medical History PMH: Migraine Past Surgical History PAST SURGICAL HISTORY: Allergies: Coded Allergies: No Known Allergies (Verified Adverse Reaction, Unknown, 10/06/17) Family History PAST FAMILY HISTORY: Reviewed. No h/o DM or CAD Social History PAST SOCIAL HISTORY: Negative for alcohol or drugs. Occasional tobacco. Physical Exam Vital Signs Vital Signs Date Time Temp Pulse Resp B/P (MAP) Pulse Ox O2 Delivery O2 Flow Rate FiO2 10/12/17 01:45 48 18 120/60 (80) 96 Room Air 10/11/17 22:30 98 21 10/11/17 22:23 18 98 Room Air 10/11/17 22:20 98 10/11/17 22:19 (97) 10/11/17 22:13 32 10/11/17 21:42 98.4 65 18 131/80 (97) 99 Room Air Physical Exam PE: GENERAL: Middle-aged white female in no acute distress, c/o headache. No respiratory compromise, speaking in full sentences. HEENT: PERRLA, EOMI. No scleral icterus or conjunctival pallor. No lid lag or facial droop. +facial erythema CARDIOVASCULAR: Regular rate and rhythm. No obvious murmurs to auscultation. No chest tenderness to palpation. RESPIRATORY: No obvious rhonchi or wheezing. Clear to auscultation. Breath sounds equal bilaterally. GASTROINTESTINAL: Abdomen soft, non-tender, nondistended. BS normal. MUSCULOSKELETAL: Extremities without clubbing, cyanosis. +1-2 edema lower extremities. No obvious deformities. NEUROLOGICAL: Awake, alert and oriented x4. No focal neurologic deficits. Moving both upper and lower extremities spontaneously. Laboratory Laboratory Tests Test 10/11/17 23:00 10/12/17 01:25 White Blood Count 20.7 Red Blood Count 3.75 Hemoglobin 11.4 Hematocrit 34.5 Mean Corpuscular Volume 92.1 Mean Corpuscular Hemoglobin 30.5 Mean Corpuscular Hemoglobin Concent 33.1 Red Cell Distribution Width 13.8 Platelet Count 304 Mean Platelet Volume 9.1 Neutrophils (%) (Auto) 85.1 Lymphocytes (%) (Auto) 8.6 Monocytes (%) (Auto) 6.0 Eosinophils (%) (Auto) 0.0 Basophils (%) (Auto) 0.3 Neutrophils # (Auto) 17.6 Lymphocytes # (Auto) 1.8 Monocytes # (Auto) 1.2 Eosinophils # (Auto) 0.0 Basophils # (Auto) 0.1 CBC Comment AUTO DIFF Differential Comment AUTO DIFF CONFIRMED Platelet Estimate NORMAL Platelet Morphology Comment NORMAL Red Cell Morphology Comment NORMAL Blood Urea Nitrogen 12 Creatinine 0.68 Random Glucose 114 Total Protein 5.8 Albumin 2.9 Calcium Level 7.9 Alkaline Phosphatase 59 Aspartate Amino Transf (AST/SGOT) 19 Alanine Aminotransferase (ALT/SGPT) 45 Total Bilirubin 0.1 Sodium Level 142 Potassium Level 4.1 Chloride Level 109 Carbon Dioxide Level 26.7 Anion Gap 6 Estimat Glomerular Filtration Rate 94 Lipase 79 Urine Color LIGHT-YELLOW Urine Turbidity CLEAR Urine pH 7.5 Urine Specific [place] 1.009 Urine Protein NEG Urine Glucose (UA) NEG Urine Ketones NEG Urine Occult Blood NEG Urine Nitrite NEG Urine Bilirubin NEG Urine Urobilinogen LESS THAN 2.0 Urine Leukocyte Esterase NEG Urine RBC 1 Urine WBC 1 Urine Squamous Epithelial Cells <1 Urine Mucus FEW Microscopic Urinalysis Comment CULT NOT INDICATED Result Diagram: 10/11/17229910/11/172299 Caprini VTE Risk Assessment Caprini VTE Risk Assessment: No/Low Risk (score <= 1) Caprini Risk Assessment Model Point Value = 1 Point Value = 2 Point Value = 3 Point Value = 5 Age 41-60 Minor surgery BMI > 25 kg/m2 Swollen legs Varicose veins or History of unexplained or recurrent spontaneous Oral contraceptives or hormone replacement Sepsis (< 1 month) Serious lung disease, including pneumonia (< 1 month) Abnormal pulmonary function Acute myocardial infarction Congestive heart failure (< 1 month) History of inflammatory bowel disease Medical patient at bed rest Age 61-74 Arthroscopic surgery Major open surgery (> 45 min) Laparoscopic surgery (> 45 min) Malignancy Confined to bed (> 72 hours) Immobilizing plaster cast Central venous access Age >= 75 History of VTE Family history of VTE Factor V Leiden Prothrombin [id number] Lupus anticoagulant Anticardiolipin antibodies Elevated serum homocysteine Heparin-induced thrombocytopenia Other congenital or acquired thrombophilia Stroke (< 1 month) Elective arthroplasty Hip, pelvis, or leg fracture Acute spinal cord injury (< 1 month) Prophylaxis Regimen Total Risk Factor Score Risk Level Prophylaxis Regimen 0-1 Low Early ambulation 2 Moderate Order ONE of the following: *Sequential Compression Device (SCD) *Heparin 5000 units SQ BID 3-4 Higher Order ONE of the following medications: *Heparin 5000 units SQ TID *Enoxaparin/Lovenox 40 mg SQ daily (WT < 150 kg, CrCl > 30 mL/min) *Enoxaparin/Lovenox 30 mg SQ daily (WT < 150 kg, CrCl > 10-29 mL/min) *Enoxaparin/Lovenox 30 mg SQ BID (WT < 150 kg, CrCl > 30 mL/min) AND/OR *Sequential Compression Device (SCD) 5 or more Highest Order ONE of the following medications: *Heparin 5000 units SQ TID (Preferred with Epidurals) *Enoxaparin/Lovenox 40 mg SQ daily (WT < 150 kg, CrCl > 30 mL/min) *Enoxaparin/Lovenox 30 mg SQ daily (WT < 150 kg, CrCl > 10-29 mL/min) *Enoxaparin/Lovenox 30 mg SQ BID (WT < 150 kg, CrCl > 30 mL/min) AND *Sequential Compression Device (SCD) Assessment and Plan Problem List: (1) Allergic reaction caused by a drug ICD Code: T78.40XA - Allergy, unspecified, initial encounter Status: Acute (2) Migraine ICD Code: G43.909 - Migraine, unspecified, not intractable, without status migrainosus (3) Leukocytosis ICD Code: D72.829 - Elevated white blood cell count, unspecified Assessment and Plan A/P: 1. Allergic Rxn: recent admit for same, thought to be secondary to Topamax which was discontinued, now w/ recurrent symptoms. Recommend discontinuation of Amitriptyline as well. No airway compromise, O2 sat normal. Continue w/ Solu-Medrol, Pepcid, Benadryl. Admit for Observation to eval for possible progression. 2. Migraine: h/o Migraine w/ acute episode, +nausea/photophobia. Benadryl/ Compazine, hold Topamax and Amitriptyline as above in light of possible allergic reaction. Will need outpatient follow up w/ her Neurologist to determine alternate medication regimen. 3. Leukocytosis: WBC 20, previously 16 prior to discharge, likely secondary to steroid therapy, no obvious infection noted. CXR w/ no acute findings, images reviewed by me. U/a negative, repeat labs in am. 4. 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 6. Case discussed at length with ER physician, labs/records/imaging reviewed by me. Marquita Wayne MD Oct 12, 2017 03:58
[2017-10-12] MEDS: FAMOTIDINE 20 MG/2 ML VIAL IV PUSH SCH ×2 (06:26→18:17)
[2017-10-12] MEDS: methylPREDNISolone SOD SUCC 40 MG/1 ML VIAL IV PUSH SCH ×4 (06:27→23:07)
[2017-10-12] MEDS: DOCUSATE SODIUM 50 MG/SENNA 8.6 MG TAB PO SCH ×2 (09:00→19:47)
[2017-10-12] MEDS: ACETAMINOPHEN/HYDROcodone 325 MG/10 MG TAB PO PRN ×2 (10:41→23:08)
[2017-10-12] MEDS: diphenhydrAMINE HCL 50 MG/ML VIAL IV PUSH SCH ×3 (10:41→19:48)
[2017-10-12] MEDS: clonazePAM 0.5 MG TAB PO SCH ×3 (10:41→18:16)
[2017-10-12] MEDS: SODIUM CHLORIDE 0.9% FLUSH 10 ML FLUSH IV FLUSH SCH ×2 (10:42→21:00)
[2017-10-12] MEDS: ENOXAPARIN SODIUM 40 MG/0.4 ML SYRINGE SQ SCH (10:42)
[2017-10-12] MEDS ORDERED: SUMAtriptan INJ 6 MG/0.5 ML VIAL SQ ONE (15:45)
[2017-10-12] MEDS: LORazepam 2 MG/ML VIAL IV PUSH PRN (17:19)
--- NOTE | 2017-10-12 18:06 | HHI.PR ---
Subjective Remarks Follow up for allergic reaction, migraine. The patient is seen with Dr. Leonardo. The patient reports continued migraine with photophobia. She also reports uncontrolled anxiety, requesting IV ativan. Her facial swelling and rash has improved. She also reports improvement of shortness of breath since arrival. Denies any chest pain or dysphagia. Objective Vitals Vital Signs Date Time Temp Pulse Resp B/P (MAP) Pulse Ox O2 Delivery O2 Flow Rate FiO2 10/12/17 16:00 54 10/12/17 16:00 98.0 63 20 114/64 (81) 97 10/12/17 12:00 97.1 50 20 118/71 (87) 95 10/12/17 08:00 97.8 58 16 114/78 (90) 97 10/12/17 04:41 97.6 50 18 109/71 (84) 95 10/12/17 01:45 48 18 120/60 (80) 96 Room Air 10/11/17 22:30 98 21 10/11/17 22:23 18 98 Room Air 10/11/17 22:20 98 10/11/17 22:19 (97) 10/11/17 22:13 32 10/11/17 21:42 98.4 65 18 131/80 (97) 99 Room Air Result Diagram: 10/11/17 2300 10/11/17 2300 Imaging Last Impressions Chest X-Ray 10/12/17 0011 Signed Impressions: Service Date/Time: Thursday, October 12, 2017 00:53 - CONCLUSION: 1. Mild basilar airspace disease. No significant effusion. No pneumothorax. Alexis Cardenas MD Objective Remarks GENERAL: Well-nourished, well-developed middle aged female patient in [facility]. SKIN: Warm and dry. Diffuse erythematous macular rash throughout face and neck, with scattered erythema and excoriations throughout extremities and chest. HEENT: Normocephalic. Atraumatic.Pupils equal and round. Mucous membranes pink and moist. NECK: Supple. Trachea midline. CARDIOVASCULAR: Regular rate and rhythm. S1, S2 noted. No murmur appreciated. RESPIRATORY: No accessory muscle use. Clear to auscultation. Breath sounds equal bilaterally. GASTROINTESTINAL: Abdomen soft, non-tender, nondistended. Normoactive bowel sounds x4. MUSCULOSKELETAL: No obvious deformities. Extremities without clubbing, cyanosis , or edema. NEUROLOGICAL: Awake and alert. No obvious cranial nerve deficits. Motor grossly within normal limits. Normal speech. PSYCHIATRIC: Appropriate mood and affect; insight and judgment normal. Medications and IVs Current Medications Medications (Trade) Dose Ordered Sig/Sita Route Start Time Stop Time Status Last Admin (NS Flush) 2 ml UNSCH PRN IV FLUSH 10/11/17 22:30 (Duoneb Neb) 1 ampule Q2HR NEB PRN NEB 10/12/17 01:15 (SoluMEDROL INJ) 40 mg Q6HR IV PUSH 10/12/17 06:00 10/12/17 13:58 (Benadryl Inj) 25 mg Q4H PRN IV PUSH 10/12/17 01:15 10/12/17 01:50 (Compazine Inj) 10 mg Q4H PRN IV PUSH 10/12/17 01:15 10/12/17 01:50 (NS Flush) 2 ml UNSCH PRN IV FLUSH 10/12/17 01:15 (NS Flush) 2 ml BID IV FLUSH 10/12/17 09:00 10/12/17 10:42 (Zofran Inj) 4 mg Q6H PRN IVP 10/12/17 01:15 (Lovenox Inj) 40 mg Q24H SQ 10/12/17 09:00 10/12/17 10:42 (Tylenol) 650 mg Q6H PRN PO 10/12/17 01:15 ([place] 5-325 Mg) 1 tab Q4H PRN PO 10/12/17 01:15 ([place] 10-325 Mg) 1 tab Q4H PRN PO 10/12/17 01:15 10/12/17 10:41 (Mindi-Colace) 1 tab BID PO 10/12/17 09:00 (Milk Of Magnesia Liq) 30 ml Q12H PRN PO 10/12/17 01:15 (Senokot) 17.2 mg Q12H PRN PO 10/12/17 01:15 (Dulcolax Supp) 10 mg DAILY PRN RECTAL 10/12/17 01:15 (Lactulose Liq) 30 ml DAILY PRN PO 10/12/17 01:15 (Pepcid Inj) 20 mg Q12H IV PUSH 1/29/18 06:00 10/12/17 06:26 (KlonoPIN) 0.25 mg TID PO 10/12/17 09:00 10/12/17 13:58 (Pneumovax-23 Inj) 25 mcg ONCE ONCE IM 10/13/17 10:00 10/13/17 10:01 (Flu (Quadrivalent) Vaccine Inj) 0.5 ml ONCE ONCE IM 10/13/17 10:00 10/13/17 10:01 (Benadryl Inj) 25 mg Q6H IV PUSH 10/12/17 08:00 10/12/17 13:58 (Ativan Inj) 0.5 mg Q6H PRN IV PUSH 10/12/17 15:45 10/12/17 17:19 A/P Problem List: (1) Allergic reaction caused by a drug ICD Code: T78.40XA - Allergy, unspecified, initial encounter Status: Acute (2) Migraine ICD Code: G43.909 - Migraine, unspecified, not intractable, without status migrainosus (3) Leukocytosis ICD Code: D72.829 - Elevated white blood cell count, unspecified Assessment and Plan 42-year-old female with a PMH of Migraine who presented to the ER with complaints of throat swelling and SOB. Recent admit 10/06-10/11/17 for similar complaints, noted to have extensive body rash and facial edema thought to be due to Topamax, s/p Steroids and Benadryl w/ improvement. Allergic Reaction: recent admit for same, thought to be secondary to Topamax which was discontinued, now w/ recurrent symptoms. Recommend discontinuation of Amitriptyline as well. Patient has been on both topamax and amitriptyline for over 1 year at least. No airway compromise, O2 sat normal. -Continue w/ IV Solu-Medrol 40mg q8h, Pepcid bid, IV Benadryl 25mg q6h -Patient reports anxiety with steroids and benadryl, added IV ativan 0.5mg q6h prn -Monitor for improvement Migraine: h/o Migraine w/ acute episode, +nausea/photophobia. Benadryl/ Compazine, hold Topamax and Amitriptyline as above in light of possible allergic reaction. -will give IM Imitrex x1 -Fioricet prn -Will need outpatient follow up w/ her Neurologist to determine alternate medication regimen for migraine prophylaxis Leukocytosis: WBC 20, previously 16 prior to discharge, likely secondary to steroid therapy, no obvious infection noted. Afebrile. -CXR w/ no acute findings, images reviewed by me. -U/a negative -repeat labs in am DVT Prophylaxis: Lovenox sq Janae Horton PA-C Oct 12, 2017 6:06 pm
[2017-10-13] VITALS (7 sets, daily range): BP systolic 108–138; BP diastolic 65–85; PULSE 42–75; RESP 18–20; TEMP 96–98.1; O2SAT 98–100
[2017-10-13] MEDS: LORazepam 2 MG/ML VIAL IV PUSH PRN ×3 (00:31→22:35)
[2017-10-13] MEDS: diphenhydrAMINE HCL 50 MG/ML VIAL IV PUSH SCH ×4 (00:32→22:35)
[2017-10-13] MEDS: ACETAMIN 325 MG/BUTALBITAL 50 MG/CAFFEINE 40 MG TAB PO PRN ×3 (02:28→22:36)
[2017-10-13 06:44] LABS: AUTOMATED NEUTROPHIL # 20.4 TH/MM3 (1.8-7.7); BASOPHIL % 0.1 % (0.0-2.0); HEMATOCRIT 36.9 % (35.0-46.0); HEMOGLOBIN 12.2 GM/DL (11.6-15.3); LYMPH % 5.7 % (9.0-44.0); LYMPHOCYTE # 1.3 TH/MM3 (1.0-4.8); MEAN CELL VOLUME 92.9 FL (80.0-100.0); MEAN CORPUSCULAR HEMOGLOBIN 30.6 PG (27.0-34.0); MONOCYTE # 1.1 TH/MM3 (0-0.9); NEUT % 89.2 % (16.0-70.0); PLATELET COUNT 304 TH/MM3 (150-450); RED BLOOD COUNT 3.98 MIL/MM3 (4.00-5.30); RED CELL DISTRIBUTION WIDTH 14.5 % (11.6-17.2); WHITE BLOOD COUNT 22.9 TH/MM3 (4.0-11.0)
[2017-10-13] MEDS: FAMOTIDINE 20 MG/2 ML VIAL IV PUSH SCH ×2 (06:50→18:40)
[2017-10-13] MEDS: methylPREDNISolone SOD SUCC 40 MG/1 ML VIAL IV PUSH SCH ×4 (06:50→22:35)
[2017-10-13 07:06] LABS: ALBUMIN 2.7 GM/DL (3.4-5.0); ALT (GPT) 40 U/L (10-53); AST (GOT) 14 U/L (15-37); BICARBONATE 32.3 MEQ/L (21.0-32.0); BLOOD UREA NITROGEN 15 MG/DL (7-18); CALCIUM 8.4 MG/DL (8.5-10.1); CHLORIDE 102 MEQ/L (98-107); CREATININE 0.68 MG/DL (0.50-1.00); GLOMERULAR FILTRATION RATE 94 ML/MIN (>89); GLUCOSE,RANDOM 109 MG/DL (74-106); SODIUM (NA) 139 MEQ/L (136-145)
[2017-10-13 07:09] LABS: ALKALINE PHOSPHATASE 59 U/L (45-117); TOTAL BILIRUBIN ADULT 0.2 MG/DL (0.2-1.0); TOTAL PROTEIN 5.5 GM/DL (6.4-8.2)
[2017-10-13] MEDS ORDERED: INFLUENZA VIRUS VACCINE (QUADRIVALENT) 0.5 ML SYR IM ONE (10:00)
[2017-10-13] MEDS ORDERED: PNEUMOCOCCAL POLYVALENT INJ 25 MCG/0.5 ML SYR IM ONE (10:00)
[2017-10-13] MEDS: DOCUSATE SODIUM 50 MG/SENNA 8.6 MG TAB PO SCH ×2 (10:45→22:35)
[2017-10-13] MEDS: clonazePAM 0.5 MG TAB PO SCH ×3 (10:46→18:40)
[2017-10-13] MEDS: ENOXAPARIN SODIUM 40 MG/0.4 ML SYRINGE SQ SCH (10:46)
[2017-10-13] MEDS: SODIUM CHLORIDE 0.9% FLUSH 10 ML FLUSH IV FLUSH SCH ×2 (10:49→21:00)
--- NOTE | 2017-10-13 16:43 | HHI.PR ---
Subjective Remarks Follow up for allergic reaction, migraine. Patient has persistent headache, and complains of whole body swelling. She feels that she has gained a lot of weight. Her base weight is around 107lbs. Objective Vitals Vital Signs Date Time Temp Pulse Resp B/P (MAP) Pulse Ox O2 Delivery O2 Flow Rate FiO2 10/13/17 16:21 62 10/13/17 16:00 96.0 67 20 119/73 (88) 98 10/13/17 12:00 97.7 65 20 108/65 (79) 98 10/13/17 10:40 42 10/13/17 08:00 96.8 50 20 126/77 (93) 100 10/13/17 04:24 98.1 52 18 138/85 (102) 99 10/13/17 04:14 18 10/12/17 23:53 18 10/12/17 23:32 98.1 51 18 124/82 (96) 100 10/12/17 20:43 98.8 60 18 117/72 (87) 98 I/O 10/12/17 10/12/17 10/12/17 10/13/17 10/13/17 10/13/17 07:00 15:00 23:00 07:00 15:00 23:00 Intake Total 300 ml Balance 300 ml Intake Oral 300 ml Result Diagram: 10/13/17 0602 10/13/17 0602 Imaging Last Impressions Chest X-Ray 10/12/17 0011 Signed Impressions: Service Date/Time: Thursday, October 12, 2017 00:53 - CONCLUSION: 1. Mild basilar airspace disease. No significant effusion. No pneumothorax. Alexis Cardenas MD Objective Remarks GENERAL: Alert, oriented x 3, NAD. Cries frequently during this interview. Her weight is recorded today 48.5 kg ==> approx 107lbs. SKIN: Warm and dry. HEAD: Normocephalic. EYES: No scleral icterus. No injection or drainage. NECK: Supple, trachea midline. No JVD or lymphadenopathy. CARDIOVASCULAR: Regular rate and rhythm without murmurs, gallops, or rubs. RESPIRATORY: Breath sounds equal bilaterally. No accessory muscle use. GASTROINTESTINAL: Abdomen soft, non-tender, nondistended. MUSCULOSKELETAL: No cyanosis, or edema. No edema noted on her hands, abdominal area or legs. BACK: Nontender without obvious deformity. No CVA tenderness. A/P Problem List: (1) Allergic reaction caused by a drug ICD Code: T78.40XA - Allergy, unspecified, initial encounter Status: Acute (2) Migraine ICD Code: G43.909 - Migraine, unspecified, not intractable, without status migrainosus (3) Leukocytosis ICD Code: D72.829 - Elevated white blood cell count, unspecified Assessment and Plan 42-year-old female with a PMH of Migraine who presented to the ER with complaints of throat swelling and SOB. Recent admit 10/06-10/11/17 for similar complaints, noted to have extensive body rash and facial edema thought to be due to Topamax, s/p Steroids and Benadryl w/ improvement. Allergic Reaction: recent admit for same, thought to be secondary to Topamax which was discontinued, now w/ recurrent symptoms. Recommend discontinuation of Amitriptyline as well. Patient has been on both topamax and amitriptyline for over 1 year at least. No airway compromise, O2 sat normal. -Continue w/ IV Solu-Medrol 40mg q8h, Pepcid bid, IV Benadryl 25mg q6h -Patient reports anxiety with steroids and Benadryl, added IV ativan 0.5mg q6h prn -Clinically patient appears to be in hemodynamically stable condition -Patient's assumption that she is edematous all over is not substantiated by physical exam. -Her weight is exactly what she says she was prior to this admission - around 107 lbs. Migraine: h/o Migraine w/ acute episode, +nausea/photophobia. Benadryl/ Compazine, hold Topamax and Amitriptyline as above in light of possible allergic reaction. -Gave Sumatriptan yesterday. -Fioricet prn -Will need outpatient follow up w/ her Neurologist to determine alternate medication regimen for migraine prophylaxis Leukocytosis: WBC around 22K. No clinical evidence of infection. This is likely due to steroid use. Abdominal pain - Patient complains of right lower quadrant abd pain. Will obtain Abd US. Full code. DVT Prophylaxis: Lovenox Elena Deng DO Oct 13, 2017 16:43
[2017-10-14] VITALS (8 sets, daily range): BP systolic 108–131; BP diastolic 57–78; PULSE 50–94; RESP 16–18; TEMP 97.3–98.7; O2SAT 94–99
[2017-10-14] MEDS: diphenhydrAMINE HCL 50 MG/ML VIAL IV PUSH SCH (02:00)
[2017-10-14] MEDS: methylPREDNISolone SOD SUCC 40 MG/1 ML VIAL IV PUSH SCH (05:09)
[2017-10-14] MEDS: FAMOTIDINE 20 MG/2 ML VIAL IV PUSH SCH (06:51)
[2017-10-14] MEDS: SODIUM CHLORIDE 0.9% FLUSH 10 ML FLUSH IV FLUSH SCH ×2 (09:00→20:36)
--- NOTE | 2017-10-14 09:03 | RADRPT ---
EXAM DATE/TIME: 10/14/2017 07:56 [facility] COMPARISON: No previous studies available for comparison. INDICATIONS : Right lower quadrant abdominal pain. MEDICAL HISTORY : ADHD. PTSD. Ectopic . Migraines. SURGICAL HISTORY : section. Adenoidectomy. ENCOUNTER: Initial ACUITY: 1 day PAIN SCORE: 5/10 LOCATION: Bilateral upper quadrant MEASUREMENTS: LIVER: 18.2 cm length COMMON DUCT: 4 mm RIGHT KIDNEY: 10.4 x 4.3 x 6.3 cm LEFT KIDNEY: 11.3 x 5.5 x 6.2 cm SPLEEN: 9.6 cm length AORTA: 2.3cm maximal FINDINGS: LIVER: Normal echotexture without focal lesion or ductal dilatation. COMMON DUCT: No intraluminal mass or stone visualized. GALLBLADDER: Contains no stones, demonstrates no wall thickening or pericholecystic fluid. PANCREAS: The visualized portions are within normal limits. RIGHT KIDNEY: No hydronephrosis, stone or mass. LEFT KIDNEY: No hydronephrosis, stone or mass. SPLEEN: No focal lesion. AORTA: Non aneurysmal. IVC: Within normal limits. CONCLUSION: Unremarkable exam. Josef Calero MD on October 14, 2017 at 8:59 Board Certified Radiologist. This report was verified electronically.
[2017-10-14] MEDS ORDERED: diphenhydrAMINE HCL 25 MG CAP PO PRN (10:00)
[2017-10-14] MEDS: ONDANSETRON HCL 4 MG/2 ML VIAL IVP PRN (11:59)
[2017-10-14] MEDS: clonazePAM 0.5 MG TAB PO SCH ×3 (12:04→18:53)
[2017-10-14] MEDS: ENOXAPARIN SODIUM 40 MG/0.4 ML SYRINGE SQ SCH (12:05)
[2017-10-14] MEDS: ACETAMIN 325 MG/BUTALBITAL 50 MG/CAFFEINE 40 MG TAB PO PRN ×2 (12:17→20:40)
[2017-10-14] MEDS: DOCUSATE SODIUM 50 MG/SENNA 8.6 MG TAB PO SCH ×2 (12:18→20:36)
--- NOTE | 2017-10-14 14:27 | RADRPT ---
EXAM DATE/TIME: 10/14/2017 12:58 [facility] COMPARISON: No previous studies available for comparison. INDICATIONS : Right lower quadrant pelvic pain. MEDICAL HISTORY : ADHD. PTSD. Ectopic . Migraines. SURGICAL HISTORY : section. Adenoidectomy. ENCOUNTER: Initial ACUITY: 1 day PAIN SCORE: 4/10 LOCATION: Bilateral pelvis MEASUREMENTS: UTERUS: 9.3 x 3.7 x 5.0 cm ENDOMETRIAL STRIPE: 10 mm RIGHT OVARY: 2.6 x 1.9 x 2.0 cm LEFT OVARY: 3.3 x 2.3 x 3.2 cm FINDINGS: UTERUS: The myometrium has homogeneous echotexture without mass. RIGHT OVARY: Ovary contains no mass or significant cystic lesion. Normal flow. LEFT OVARY: There is a minimally complex cyst measuring 19 x 15 x 17 mm. Normal flow. MISCELLANEOUS: Trace free fluid. CONCLUSION: 1. Minimally complex left ovarian cyst measuring 1.9 cm. 2. Normal flow to both ovaries. Kristopher Sterling MD on October 14, 2017 at 14:22 Board Certified Radiologist. This report was verified electronically.
--- NOTE | 2017-10-14 15:44 | HHI.PR ---
Subjective Remarks Follow up for allergic reaction, migraine. Patient complains of persistent migraine headache. She has had this headache for almost two years. She also reports feeling edematous and unable to ambulate due to swelling of her thighs. However, she actually ambulates to the bathroom without much difficulty. No fever, chills. Objective Vitals Vital Signs Date Time Temp Pulse Resp B/P (MAP) Pulse Ox O2 Delivery O2 Flow Rate FiO2 10/14/17 13:17 20 10/14/17 11:45 98.0 94 18 123/67 (85) 94 10/14/17 08:22 97.7 50 16 131/78 (95) 98 10/14/17 03:57 97.7 54 18 116/75 (89) 99 10/14/17 00:09 97.3 64 18 109/65 (80) 98 10/13/17 21:16 97.5 75 18 121/79 (93) 98 10/13/17 16:21 62 10/13/17 16:00 96.0 67 20 119/73 (88) 98 I/O 10/13/17 10/13/17 10/13/17 10/14/17 10/14/17 10/14/17 07:00 15:00 23:00 07:00 15:00 23:00 Intake Total 300 ml 500 ml 200 ml Balance 300 ml 500 ml 200 ml Intake Oral 300 ml 500 ml 200 ml Result Diagram: 10/13/17 0602 10/13/17 0602 Imaging Last Impressions Pelvis Ultrasound 10/14/17 0000 Signed Impressions: Service Date/Time: Saturday, October 14, 2017 12:58 - CONCLUSION: 1. Minimally complex left ovarian cyst measuring 1.9 cm. 2. Normal flow to both ovaries. Kristopher Sterling MD Abdomen Ultrasound 10/14/17 0000 Signed Impressions: Service Date/Time: Saturday, October 14, 2017 07:56 - CONCLUSION: Unremarkable exam. Josef Calero MD Chest X-Ray 10/12/17 0011 Signed Impressions: Service Date/Time: Thursday, October 12, 2017 00:53 - CONCLUSION: 1. Mild basilar airspace disease. No significant effusion. No pneumothorax. Alexis Cardenas MD Objective Remarks GENERAL: Alert, oriented x 3, NAD. Cries frequently during this interview. Her weight is recorded today 48.5 kg ==> approx 107lbs. SKIN: Warm and dry. HEAD: Normocephalic. EYES: No scleral icterus. No injection or drainage. NECK: Supple, trachea midline. No JVD or lymphadenopathy. CARDIOVASCULAR: Regular rate and rhythm without murmurs, gallops, or rubs. RESPIRATORY: Breath sounds equal bilaterally. No accessory muscle use. GASTROINTESTINAL: Abdomen soft, non-tender, nondistended. MUSCULOSKELETAL: No cyanosis, or edema. No edema noted on her hands, abdominal area or legs. BACK: Nontender without obvious deformity. No CVA tenderness. A/P Problem List: (1) Allergic reaction caused by a drug ICD Code: T78.40XA - Allergy, unspecified, initial encounter Status: Acute (2) Migraine ICD Code: G43.909 - Migraine, unspecified, not intractable, without status migrainosus (3) Leukocytosis ICD Code: D72.829 - Elevated white blood cell count, unspecified Assessment and Plan 42-year-old female with a PMH of Migraine who presented to the ER with complaints of throat swelling and SOB. Recent admit 10/06-10/11/17 for similar complaints, noted to have extensive body rash and facial edema thought to be due to Topamax, s/p Steroids and Benadryl w/ improvement. Suspected Allergic Reaction - recent admit for same, thought to be secondary to Topamax which was discontinued, now w/ recurrent symptoms. - Recommend discontinuation of Amitriptyline as well. - Patient has been on both topamax and amitriptyline for over 1 year at least. No airway compromise, O2 sat normal. - Will discontinue w/ IV Solu-Medrol 40mg q8h, Pepcid bid. Continue Benadryl PO PRN. - Discontinue IV Ativan. She is already on Clonazepam for anxiety. - Clinically patient appears to be in hemodynamically stable condition - Patient's assumption that she is edematous all over is not substantiated by physical exam. - Her weight is exactly what she says she was prior to this admission - around 107 lbs. Migraine: h/o Migraine w/ acute episode, +nausea/photophobia. Benadryl/ Compazine, hold Topamax and Amitriptyline as above in light of possible allergic reaction. - Will administer Sumatriptan once today and start Propranolol 20mg BID. - Fioricet prn - Patient has been in the hospital for more than 2-3 days. She has persistent headache. - At this point, we will request some assistance from Neurology for an evaluation. Leukocytosis: WBC around 22K. No clinical evidence of infection. This is likely due to steroid use. Abdominal pain - Patient complains of right lower quadrant abd pain. Abd US did not reveal any acute findings. Pelvic US shows left ovarian cysts. Full code. DVT Prophylaxis: Lovenox sq Elena Leonardo DO Oct 14, 2017 15:44
[2017-10-14] MEDS ORDERED: SUMAtriptan INJ 6 MG/0.5 ML VIAL SQ ONE (15:45)
[2017-10-14] MEDS: LACTULOSE SYRUP 20 GM/30 ML CUP PO PRN (17:31)
[2017-10-14] MEDS: PROPRANOLOL HCL 20 MG TAB PO SCH (20:36)
[2017-10-15] VITALS (10 sets, daily range): BP systolic 92–100; BP diastolic 50–59; PULSE 51–72; RESP 12–18; TEMP 95.4–98; O2SAT 95–98
[2017-10-15] MEDS: ACETAMIN 325 MG/BUTALBITAL 50 MG/CAFFEINE 40 MG TAB PO PRN (04:20)
[2017-10-15] MEDS: ONDANSETRON HCL 4 MG/2 ML VIAL IVP PRN ×2 (04:20→16:28)
[2017-10-15] MEDS: PROPRANOLOL HCL 20 MG TAB PO SCH (08:06)
[2017-10-15] MEDS: DOCUSATE SODIUM 50 MG/SENNA 8.6 MG TAB PO SCH ×2 (09:00→21:18)
[2017-10-15] MEDS: SODIUM CHLORIDE 0.9% FLUSH 10 ML FLUSH IV FLUSH SCH ×2 (09:00→21:00)
[2017-10-15] MEDS: LACTULOSE SYRUP 20 GM/30 ML CUP PO PRN (11:51)
[2017-10-15] MEDS: clonazePAM 0.5 MG TAB PO SCH ×3 (11:52→18:00)
[2017-10-15] MEDS: ACETAMINOPHEN/HYDROcodone 325 MG/5 MG TAB PO PRN ×2 (11:53→16:46)
[2017-10-15] MEDS: ENOXAPARIN SODIUM 40 MG/0.4 ML SYRINGE SQ SCH (11:55)
--- NOTE | 2017-10-15 13:03 | HHI.PR ---
Subjective Remarks Follow up for allergic reaction, migraine. Patient continues to complain of migraine headache, some nausea as well. She has been able to keep food down, however. Objective Vitals Vital Signs Date Time Temp Pulse Resp B/P (MAP) Pulse Ox O2 Delivery O2 Flow Rate FiO2 10/15/17 12:30 96.3 59 12 96/54 (68) 96 10/15/17 09:24 96.0 57 18 98/59 (72) 97 10/15/17 08:11 100/57 (71) 10/15/17 06:41 18 10/15/17 03:28 97.7 51 18 95/50 (65) 96 10/15/17 03:21 56 10/15/17 02:05 21 10/15/17 00:00 62 10/14/17 23:14 97.7 67 18 108/59 (75) 96 10/14/17 20:00 81 10/14/17 19:26 98.3 90 18 111/68 (82) 97 10/14/17 15:48 98.7 87 18 109/57 (74) 96 I/O 10/14/17 10/14/17 10/14/17 10/15/17 10/15/17 10/15/17 07:00 15:00 23:00 07:00 15:00 23:00 Intake Total 200 ml 600 ml Balance 200 ml 600 ml Intake Oral 200 ml 600 ml # Voids 3 1 Result Diagram: 10/13/17 0602 10/13/17 0602 Objective Remarks GENERAL: Alert, oriented x 3, NAD. Cries frequently during this interview. Her weight is recorded today 48.5 kg ==> approx 107lbs. SKIN: Warm and dry. HEAD: Normocephalic. EYES: No scleral icterus. No injection or drainage. NECK: Supple, trachea midline. No JVD or lymphadenopathy. CARDIOVASCULAR: Regular rate and rhythm without murmurs, gallops, or rubs. RESPIRATORY: Breath sounds equal bilaterally. No accessory muscle use. GASTROINTESTINAL: Abdomen soft, non-tender, nondistended. MUSCULOSKELETAL: No cyanosis, or edema. No edema noted on her hands, abdominal area or legs. BACK: Nontender without obvious deformity. No CVA tenderness. A/P Problem List: (1) Allergic reaction caused by a drug ICD Code: T78.40XA - Allergy, unspecified, initial encounter Status: Acute (2) Migraine ICD Code: G43.909 - Migraine, unspecified, not intractable, without status migrainosus (3) Leukocytosis ICD Code: D72.829 - Elevated white blood cell count, unspecified Assessment and Plan 42-year-old female with a PMH of Migraine who presented to the ER with complaints of throat swelling and SOB. Recent admit 10/06-10/11/17 for similar complaints, noted to have extensive body rash and facial edema thought to be due to Topamax, s/p Steroids and Benadryl w/ improvement. Suspected Allergic Reaction - recent admit for same, thought to be secondary to Topamax which was discontinued, now w/ recurrent symptoms. - Recommend discontinuation of Amitriptyline as well. - Patient has been on both topamax and amitriptyline for over 1 year at least. No airway compromise, O2 sat normal. - Will discontinue w/ IV Solu-Medrol 40mg q8h, Pepcid bid. Continue Benadryl PO PRN. - Discontinue IV Ativan. She is already on Clonazepam for anxiety. - Clinically patient appears to be in hemodynamically stable condition - Patient's assumption that she is edematous all over is not substantiated by physical exam. - Her weight is exactly what she says she was prior to this admission - around 107 lbs. Migraine: h/o Migraine w/ acute episode, +nausea/photophobia. Benadryl/ Compazine, hold Topamax and Amitriptyline as above in light of possible allergic reaction. - Will administer Sumatriptan once today and start Propranolol 20mg BID. - Fioricet prn - Patient has been in the hospital for more than 2-3 days. She has persistent headache. - Neurology consultation pending. Leukocytosis: WBC around 22K. No clinical evidence of infection. This is likely due to steroid use. CBC in the AM. Abdominal pain - Patient complains of right lower quadrant abd pain. Abd US did not reveal any acute findings. Pelvic US shows left ovarian cysts. Full code. DVT Prophylaxis: Lovenox Elena Deng DO Oct 15, 2017 1:03 pm
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
--- NOTE | 2017-10-15 17:22 | RADRPT ---
EXAM DATE/TIME: 10/15/2017 17:07 [facility] COMPARISON: No previous studies available for comparison. INDICATIONS : Abdominal pain and constipation. MEDICAL HISTORY : None. SURGICAL HISTORY : section. ENCOUNTER: Initial ACUITY: 1 week PAIN SCORE: 8/10 LOCATION: Right abdomen. FINDINGS: Supine view of the abdomen was performed. There is a moderate to large amount of stool throughout the colon greatest distally.. No abnormal masses, calcifications, or organomegaly is seen. The osseous structures are unremarkable. CONCLUSION: Moderate to large amount of stool throughout the colon consistent with history of con stipation. Josef Calero MD on October 15, 2017 at 17:18 Board Certified Radiologist. This report was verified electronically.
[2017-10-15] MEDS ORDERED: SODIUM CHLOR 0.9% 1000 ML INJ 1,000 ML IV SCH (19:00)
[2017-10-15] MEDS ORDERED: PILL SPLITTER OTHER PRN (19:15)
[2017-10-15] MEDS: DIVALPROEX SODIUM E.R. 500 MG TAB PO SCH (21:22)
[2017-10-16] VITALS (12 sets, daily range): BP systolic 84–115; BP diastolic 51–62; PULSE 59–77; RESP 15–18; TEMP 97.3–98.7; O2SAT 95–98
[2017-10-16] MEDS: ACETAMINOPHEN/HYDROcodone 325 MG/5 MG TAB PO PRN (00:01)
[2017-10-16 05:36] LABS: AUTOMATED NEUTROPHIL # 7.8 TH/MM3 (1.8-7.7); BASOPHIL % 0.3 % (0.0-2.0); EOSINOPHIL # 0.3 TH/MM3 (0-0.4); HEMATOCRIT 36.6 % (35.0-46.0); LYMPHOCYTE # 3.4 TH/MM3 (1.0-4.8); MEAN CORPUSCULAR HEMOGLOBIN 30.5 PG (27.0-34.0); MEAN CORPUSCULAR HGB CONC 32.8 % (32.0-36.0); MEAN PLATELET VOLUME 8.3 FL (7.0-11.0); MONO % 9.5 % (0.0-8.0); MONOCYTE # 1.2 TH/MM3 (0-0.9); NEUT % 61.2 % (16.0-70.0); PLATELET COUNT 259 TH/MM3 (150-450); RED BLOOD COUNT 3.94 MIL/MM3 (4.00-5.30); RED CELL DISTRIBUTION WIDTH 14.1 % (11.6-17.2); WHITE BLOOD COUNT 12.7 TH/MM3 (4.0-11.0)
[2017-10-16] MEDS: ONDANSETRON HCL 4 MG/2 ML VIAL IVP PRN ×2 (06:21→12:47)
[2017-10-16 08:13] LABS: BANDS 3 % (0-6); BASOPHILS 1 % (0-2); LYMPHOCYTES 19 % (9-44); METAMYELOCYTES 2 % (0-1); MONOCYTES 5 % (0-8); MYELOCYTES 2 % (0-0); POLYS (SEG NEUTROPHILS) 64 % (16-70)
[2017-10-16] MEDS: DOCUSATE SODIUM 50 MG/SENNA 8.6 MG TAB PO SCH ×2 (10:00→21:45)
[2017-10-16] MEDS: SODIUM CHLORIDE 0.9% FLUSH 10 ML FLUSH IV FLUSH SCH ×2 (10:00→21:45)
[2017-10-16] MEDS: ENOXAPARIN SODIUM 40 MG/0.4 ML SYRINGE SQ SCH (10:01)
[2017-10-16] MEDS: clonazePAM 0.5 MG TAB PO SCH ×3 (10:01→18:21)
[2017-10-16] MEDS ORDERED: SODIUM CHLOR 0.9% 1000 ML INJ 1,000 ML IV ONE (11:45)
[2017-10-16] MEDS: ACETAMIN 325 MG/BUTALBITAL 50 MG/CAFFEINE 40 MG TAB PO PRN (11:51)
[2017-10-16] MEDS ORDERED: BISACODYL 10 MG SUPP RECTAL PRN (12:30)
--- NOTE | 2017-10-16 12:30 | HHI.PR ---
Subjective Remarks Follow up for allergic reaction, migraine. Patient complains of persistent headache, blurry vision. No fever, chills. She complains of no BM despite taking laxatives. Her BP is low today. Objective Vitals Vital Signs Date Time Temp Pulse Resp B/P (MAP) Pulse Ox O2 Delivery O2 Flow Rate FiO2 10/16/17 11:34 97.9 66 18 84/51 (62) 98 10/16/17 07:31 97.3 64 16 99/62 (74) 96 10/16/17 05:47 21 10/16/17 04:00 67 10/16/17 03:56 98.0 63 15 88/54 (65) 98 10/16/17 00:00 68 10/15/17 23:42 97.9 71 16 96/58 (71) 98 10/15/17 20:46 98.0 68 16 98/55 (69) 98 10/15/17 20:30 71 10/15/17 18:19 95.4 72 18 92/53 (66) 95 10/15/17 12:53 20 10/15/17 12:30 96.3 59 12 96/54 (68) 96 I/O 10/15/17 10/15/17 10/15/17 10/16/17 10/16/17 10/16/17 06:59 14:59 22:59 06:59 14:59 22:59 Intake Total 600 ml 800 ml 720 ml Balance 600 ml 800 ml 720 ml Intake Oral 600 ml 800 ml 720 ml IV Total 0 ml # Voids 3 1 4 3 # Bowel Movements 0 Result Diagram: 10/16/17 0459 10/13/17 0602 Imaging Last Impressions Abdomen X-Ray 10/15/17 0000 Signed Impressions: Service Date/Time: October 17:07 - CONCLUSION: Moderate to large amount of stool throughout the colon consistent with history of constipation. Josef Calero MD Pelvis Ultrasound 10/14/17 0000 Signed Impressions: Service Date/Time: Saturday, October 14, 2017 12:58 - CONCLUSION: 1. Minimally complex left ovarian cyst measuring 1.9 cm. 2. Normal flow to both ovaries. Kristopher Sterling MD Abdomen Ultrasound 10/14/17 0000 Signed Impressions: Service Date/Time: Saturday, October 14, 2017 07:56 - CONCLUSION: Unremarkable exam. Josef Calero MD Chest X-Ray 10/12/17 0011 Signed Impressions: Service Date/Time: Thursday, October 12, 2017 00:53 - CONCLUSION: 1. Mild basilar airspace disease. No significant effusion. No pneumothorax. Alexis Cardenas MD Objective Remarks GENERAL: Alert, oriented x 3, NAD. Cries frequently during this interview. Her weight is recorded today 48.5 kg ==> approx 107lbs. SKIN: Warm and dry. HEAD: Normocephalic. EYES: No scleral icterus. No injection or drainage. NECK: Supple, trachea midline. No JVD or lymphadenopathy. CARDIOVASCULAR: Regular rate and rhythm without murmurs, gallops, or rubs. RESPIRATORY: Breath sounds equal bilaterally. No accessory muscle use. GASTROINTESTINAL: Abdomen soft, non-tender, nondistended. MUSCULOSKELETAL: No cyanosis, or edema. No edema noted on her hands, abdominal area or legs. BACK: Nontender without obvious deformity. No CVA tenderness. Procedures None. A/P Problem List: (1) Allergic reaction caused by a drug ICD Code: T78.40XA - Allergy, unspecified, initial encounter Status: Acute (2) Migraine ICD Code: G43.909 - Migraine, unspecified, not intractable, without status migrainosus (3) Leukocytosis ICD Code: D72.829 - Elevated white blood cell count, unspecified Assessment and Plan 42-year-old female with a PMH of Migraine who presented to the ER with complaints of throat swelling and SOB. Recent admit 10/06-10/11/17 for similar complaints, noted to have extensive body rash and facial edema thought to be due to Topamax, s/p Steroids and Benadryl w/ improvement. Hypotension - Patient's BP is 84/51 today. Possibly due to propranolol which we initiated as a migraine prophylaxis - Discontinued beta john - Start NS bolus 1 L, if needed we will give her additional 2-3 L of Bolus. Suspected Allergic Reaction - recent admit for same, thought to be secondary to Topamax which was discontinued, now w/ recurrent symptoms. - Discontinued Amitriptyline as well. - Patient has been on both topamax and amitriptyline for over 1 year at least. No airway compromise, O2 sat normal. - Discontinued w/ IV Solu-Medrol 40mg q8h, Pepcid bid. Continue Benadryl PO PRN. - Discontinue IV Ativan. - She is on Clonazepam for anxiety. Migraine: h/o Migraine w/ acute episode, +nausea/photophobia. Benadryl/ Compazine, hold Topamax and Amitriptyline as above in light of possible allergic reaction. - Discontinued propranolol due to hypotension. - Fioricet prn - Appreciate neurology input --> recommends Depakote, Tizanidine also sumatriptan PRN. Leukocytosis: WBC around 22K --> 12.7K. It was elevated, likely due to Solu- medrol. Abdominal pain - Patient complains of right lower quadrant abd pain. Abd US did not reveal any acute findings. Pelvic US shows left ovarian cysts. Constipation - KUB shows constipation. We will give her fleets enema and other laxatives. Full code. DVT Prophylaxis: Lovenox sq Discharge plan: Today, patient has hypotension which needs to be addressed with IV fluid. However, once BP is reasonable, patient can be discharged either later today or tomorrow morning. Neurology evaluated patient and she can follow up with her PCP and neurology in the outpatient setting. Elena Leonardo DO Oct 16, 2017 12:30 pm
[2017-10-16] MEDS ORDERED: SOD PHOSPHATE/SOD BIPHOSPHATE (ADULT) ENEMA 133ML RECTAL ONE (14:00)
[2017-10-16] MEDS: PROCHLORPERAZINE INJ 10 MG/2 ML VIAL IV PUSH PRN ×2 (14:48→21:46)
[2017-10-16] MEDS: diphenhydrAMINE HCL 50 MG/ML VIAL IV PUSH PRN ×2 (14:48→21:46)
[2017-10-16] MEDS: SODIUM CHLOR 0.9% 1000 ML INJ 1,000 ML IV SCH (15:00)
[2017-10-16] MEDS: DIVALPROEX SODIUM E.R. 500 MG TAB PO SCH (21:45)
[2017-10-17] VITALS (11 sets, daily range): BP systolic 92–99; BP diastolic 54–68; PULSE 57–92; RESP 16–18; TEMP 97.4–98.9; O2SAT 94–98
[2017-10-17] MEDS: SODIUM CHLOR 0.9% 1000 ML INJ 1,000 ML IV SCH ×3 (02:34→23:23)
[2017-10-17] MEDS: SODIUM CHLORIDE 0.9% FLUSH 10 ML FLUSH IV FLUSH SCH ×2 (09:00→23:20)
[2017-10-17] MEDS ORDERED: methylPREDNISolone SOD SUCC 40 MG/1 ML VIAL IV PUSH ONE (10:00)
[2017-10-17] MEDS: clonazePAM 0.5 MG TAB PO SCH ×3 (10:02→18:02)
[2017-10-17] MEDS: ENOXAPARIN SODIUM 40 MG/0.4 ML SYRINGE SQ SCH (10:02)
[2017-10-17] MEDS: DOCUSATE SODIUM 50 MG/SENNA 8.6 MG TAB PO SCH ×2 (10:02→23:20)
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
[2017-10-17] MEDS: FAMOTIDINE 20 MG TAB PO SCH ×2 (10:47→23:20)
[2017-10-17] MEDS: LORATADINE 10 MG TAB PO SCH (10:47)
[2017-10-17] MEDS: ACETAMIN 325 MG/BUTALBITAL 50 MG/CAFFEINE 40 MG TAB PO PRN (10:48)
[2017-10-17] MEDS: ONDANSETRON HCL 4 MG/2 ML VIAL IVP PRN (10:48)
[2017-10-17] MEDS: diphenhydrAMINE HCL 25 MG CAP PO SCH ×2 (13:13→18:02)
[2017-10-17] MEDS: SODIUM CHLORIDE 0.9% FLUSH 10 ML FLUSH IV FLUSH PRN ×2 (13:14→14:54)
[2017-10-17] MEDS: PROCHLORPERAZINE INJ 10 MG/2 ML VIAL IV PUSH PRN ×2 (14:54→23:19)
[2017-10-17] MEDS: diphenhydrAMINE HCL 50 MG/ML VIAL IV PUSH PRN ×2 (14:55→23:19)
[2017-10-17] MEDS ORDERED: LIDOCAINE 2% JELLY 30 ML TUBE TOPICAL ONE (15:00)
[2017-10-17] MEDS: valACYclovir HCL 500 MG TAB PO SCH (18:01)
[2017-10-17] MEDS: DIVALPROEX SODIUM E.R. 500 MG TAB PO SCH (23:20)
[2017-10-18] MEDS ORDERED: clonazePAM 1 MG TAB PO ONE (00:30)
[2017-10-18 04:23] VITALS: BP 104/62; PULSE 72; RESP 16; TEMP 98.6; O2SAT 98
[2017-10-18] MEDS: valACYclovir HCL 500 MG TAB PO SCH (05:53)
[2017-10-18] MEDS: SODIUM CHLOR 0.9% 1000 ML INJ 1,000 ML IV SCH (07:00)
[2017-10-18 07:05] VITALS: BP 111/58; PULSE 74; RESP 18; TEMP 97.8; O2SAT 98
[2017-10-18] MEDS: diphenhydrAMINE HCL 25 MG CAP PO SCH (09:00)
[2017-10-18] MEDS ORDERED: predniSONE 50 MG TAB PO SCH (09:00)
[2017-10-18] MEDS: ENOXAPARIN SODIUM 40 MG/0.4 ML SYRINGE SQ SCH (09:00)
[2017-10-18] MEDS: SODIUM CHLORIDE 0.9% FLUSH 10 ML FLUSH IV FLUSH SCH (09:00)
[2017-10-18] MEDS ORDERED: VALT500T PO (11:05)
[2017-10-18] MEDS ORDERED: DEPA500T3 PO (11:05)
[2017-10-18] MEDS ORDERED: CLAR10TA7 PO (11:05)
[2017-10-18] MEDS ORDERED: PRED50 PO (11:05)
[2017-10-18] MEDS ORDERED: BENA25CA4 PO (11:05)
[2017-10-18] MEDS ORDERED: PERI PO (11:05)
[2017-10-18] MEDS ORDERED: MIRA3350 PO (11:05)
[2017-10-18] MEDS ORDERED: Acet-Butal-Caff 325-50-40 Mg PO (11:05)
--- NOTE | 2017-10-18 11:07 | HHI.DCPOC ---
Discharge Care Plan Diagnosis: (1) Genital herpes (2) Migraine (3) Allergic reaction caused by a drug Additional Problems You will need to get testing for STDs especially for genital herpes with your primary care provider or at the health department. Goals to Promote Your Health * To prevent worsening of your condition and complications * To maintain your health at the optimal level Directions to Meet Your Goals Take your medications as prescribed Follow your dietary instruction Follow activity as directed Keep your appointments as scheduled Take your immunizations and boosters as scheduled If your symptoms worsen call your PCP, if no PCP go to Urgent Care Center or Emergency Room Smoking is Dangerous to Your Health. Avoid second hand smoke Call the 24-hour hour crisis hotline for domestic abuse at Lakeisha Harrell MD Oct 18, 2017 11:07
--- NOTE | 2017-10-18 11:08 | HHI.DS ---
Discharge Summary Admission Date Oct 12, 2017 at 00:45 Discharge Date: Oct 19, 2017 Admitting Diagnosis allergic reaction/leukocytosis (1) Allergic reaction caused by a drug ICD Code: T78.40XA - Allergy, unspecified, initial encounter Diagnosis: Principal Status: Acute (2) Migraine ICD Code: G43.909 - Migraine, unspecified, not intractable, without status migrainosus Diagnosis: Principal (3) Genital herpes ICD Code: A60.00 - Herpesviral infection of urogenital system, unspecified Diagnosis: Secondary Procedures None. Brief History - From Admission This is a 42-year-old female with a PMH of Migraine who presented to the ER with complaints of throat swelling and SOB. Recent admit 10/06-10/11/17 for similar complaints, noted to have extensive body rash and facial edema thought to be due to Topamax, s/p Steroids and Benadryl w/ improvement. Was d/c'd home yesterday afternoon, states she went home and had progressive SOB, throat tightness and worsening edema of lower extremities and back. Topamax discontinued, however states took Amitriptyline at home in addition to her regular medications. Now w/ complaints of severe migraine, pain 10/10, non- radiating, associated w/ nausea and photophobia. On arrival, BP 131/80, HR 65, O2 sat 99% on RA, Afebrile. On exam, patient noted to have some wheezing. WBC 20.7, previously 16.8 prior to discharge. Chemistry essentially unremarkable. CXR with mild basilar airspace disease, no significant effusion. S/p Albuterol , Benadryl, Pepcid and Solu-Medrol in ER w/ some improvement, however reports persistent SOB and sensation of throat swelling. CBC/BMP: 10/16/17 0459 Significant Findings Laboratory Tests Test 10/16/17 04:59 White Blood Count 12.7 TH/MM3 (4.0-11.0) Red Blood Count 3.94 MIL/MM3 (4.00-5.30) Monocytes (%) (Auto) 9.5 % (0.0-8.0) Neutrophils # (Auto) 7.8 TH/MM3 (1.8-7.7) Monocytes # (Auto) 1.2 TH/MM3 (0-0.9) Neutrophils # (Manual) 9.0 TH/MM3 (1.8-7.7) Metamyelocytes 2 % (0-1) Myelocytes 2 % (0-0) Imaging Last Impressions Abdomen X-Ray 10/15/17 0000 Signed Impressions: Service Date/Time: October 17:07 - CONCLUSION: Moderate to large amount of stool throughout the colon consistent with history of constipation. Josef Calero MD Pelvis Ultrasound 10/14/17 0000 Signed Impressions: Service Date/Time: Saturday, October 14, 2017 12:58 - CONCLUSION: 1. Minimally complex left ovarian cyst measuring 1.9 cm. 2. Normal flow to both ovaries. Kristopher Sterling MD Abdomen Ultrasound 10/14/17 0000 Signed Impressions: Service Date/Time: Saturday, October 14, 2017 07:56 - CONCLUSION: Unremarkable exam. Josef Calero MD Chest X-Ray 10/12/17 0011 Signed Impressions: Service Date/Time: Thursday, October 12, 2017 00:53 - CONCLUSION: 1. Mild basilar airspace disease. No significant effusion. No pneumothorax. Alexis Cardenas MD PE at Discharge GENERAL: in NAD SKIN: Patient does have some excoriations on her face and neck secondary to itchiness. Otherwise no wheals or angioedema noted. HEAD: Normocephalic. EYES: No scleral icterus. No injection or drainage. NECK: Supple, trachea midline. No JVD or lymphadenopathy. CARDIOVASCULAR: Regular rate and rhythm without murmurs, gallops, or rubs. RESPIRATORY: Breath sounds equal bilaterally. No accessory muscle use. GASTROINTESTINAL: Abdomen soft, non-tender, nondistended. MUSCULOSKELETAL: No cyanosis, or edema. BACK: Nontender without obvious deformity. No CVA tenderness. Pelvic: Multiple crusted lesions on the mons pubis area rectal area ulcerating lesions. Pt update on day of discharge Follow-up for migraines and rash Patient was found sleeping. When woke patient up she had no complaints. She stated that her rash and itchiness are improving. She denies any headache and stated that had resolved. When I told patient that she can go home and be discharged today she then started complaining about a headache. When I told her that since she has been doing well with medication and this is not constant then she can be discharged home and this can be managed as outpatient. She then stated that her pharmacy is closed. I told patient she can get her medication from different pharmacist since this is a short-term treatment. She continued to complain. I then spoke to patient's nurse regards to this. Nurse found that the patient gets her medications from [facility] so nurse called [facility] and they stated that they are open. Patient also told the nurse that she was upset with me because I turned the lights on and woke her up. Hospital Course 42-year-old female with a PMH of Migraine who presented to the ER with complaints of throat swelling and SOB. Recent admit 10/06-10/11/17 for similar complaints, noted to have extensive body rash and facial edema thought to be due to Topamax, s/p Steroids and Benadryl w/ improvement. Hypotension induced during hospital course secondary to propanolol. -Patient blood pressure runs low at baseline but she was given propanolol which decreased her blood pressure. Her blood pressure improved off of the propanolol. Suspected Allergic Reaction - recent admit for same, thought to be secondary to Topamax which was discontinued, now w/ recurrent symptoms. - Discontinued Amitriptyline as well. - Patient has been on both topamax and amitriptyline for over 1 year at least. No airway compromise, O2 sat normal. - Patient was given steroid, Benadryl, Claritin, Pepcid in which symptoms resolved. Migraine: h/o Migraine w/ acute episode, +nausea/photophobia. Benadryl/ Compazine, hold Topamax and Amitriptyline as above in light of possible allergic reaction. - Propanolol was tried empirically but due to hypotension it was discontinued. Neurologist was consulted recommended Depakote. Patient uses Fioricet when necessary. -During hospital course patient didn't display drug-seeking behavior. She will complain of migraines but showed no signs of pain. She was able to do different activities despite the migraine. usually with Migraines it is very debilitating where you cannot do anything. Leukocytosis: WBC around 22K --> 12.7K. initially elevated secondary to Solu- Medrol. Resolved. Abdominal pain - Patient complains of right lower quadrant abd pain. Abd US did not reveal any acute findings but she does have constipation. See treatment as below. Pelvic US shows left ovarian cysts. Constipation - KUB shows constipation. Patient was on laxatives and stool softener. She is also given an enema. Genital herpes -Unable to get IgG and IgM. 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 Patient told must get tested for herpes. She was also told that she should get STD testing too. Since this was her first episode she was treated empirically with Valtrex for 10 days. Extensive education given. Symptoms did improve with medication. Pt Condition on Discharge: Stable Discharge Disposition: Discharge Home Discharge Time: > 30 minutes Discharge Instructions DIET: Follow Instructions for: As Tolerated, No Restrictions Activities you can perform: Regular-No Restrictions Follow up Referrals: Neurology - 2 Weeks PCP Follow-up - 3-5 Days New Medications: Polyethylene Glycol 3350 Powder (Miralax Powder) 17 Gm Powd 17 GM PO DAILY for Constipation, #1 CAN 0 Refills Mix and dissolve one measuring cap-ful (17 grams) in water or juice. Diphenhydramine HCl (Benadryl Allergy) 25 Mg Cap 25 MG PO Q12HR PRN for ITCHING, #10 CAP 0 Refills Divalproex ER (Depakote ER) 500 Mg Heather 500 MG PO HS for migraines, #30 TAB 0 Refills Loratadine (Claritin) 10 Mg Tablet 10 MG PO DAILY for allergic reaction, #14 TAB 0 Refills Prednisone (Prednisone) 50 Mg Tab 50 MG PO DAILY for Allergic Reaction, #5 TAB 0 Refills Sennosides-Docusate Sodium (Gnp Senna Plus 8.6-50 mg) 8.6 Mg-50 Mg Tab 1 TAB PO BID for constipation, #30 TAB 0 Refills Valacyclovir (Valtrex) 500 Mg Tab 1000 MG PO Q12H for viral infection, #18 TAB 0 Refills [[id number] 325-50-40 Mg] () 1 TAB TAB 1 TAB PO Q6H PRN for Severe headache, #20 TAB 0 Refills Continued Medications: Clonazepam (Klonopin) 0.5 Mg Tab 0.25 MG PO TID for Anxiety, #90 TAB Famotidine (Pepcid) 20 Mg Tab 20 MG PO BID for Allergies, #60 TAB 0 Refills Discontinued Medications: Amitriptyline (Amitriptyline) Unknown Strength Tab Unknown Dose PO HS for Control Depression, #30 TAB 0 Refills Amitriptyline (Amitriptyline) 10 Mg Tab 10 MG PO HS for Control Depression, #30 TAB 0 Refills Amphetamine-Dextroamphetamine (Adderall) 20 Mg Tab 20 MG PO DAILY@1300 for Hyperactivity Control, #30 TAB 0 Refills Take at 12 noon. Amphetamine-Dextroamphetamine ER 24 HR (Adderall Xr 24 HR) 25 Mg Cap 50 MG PO DAILY for Hyperactivity Control, #60 CAP 0 Refills Once daily in the morning. Hydrocodone/Acetaminophen (Hydrocodone-Acetamin 5-325 mg) 5 Mg-325 Mg Tablet 1 TAB PO Q6H PRN for PAIN- IF NOT RELEIVED BY MEAGAN, #20 TAB Prednisone (21) 5 mg tab Dose Pack (Prednisone (21) 5 mg tab Dose Pack) 5 Mg Dspk 5 MG PO DIRECTED for Inflammation, #1 DSPK 0 Refills Lakeisha Harrell MD Oct 18, 2017 11:08
[2017-10-18] MEDS: FAMOTIDINE 20 MG TAB PO SCH (11:13)
[2017-10-18] MEDS: DOCUSATE SODIUM 50 MG/SENNA 8.6 MG TAB PO SCH (11:13)
[2017-10-18] MEDS: LORATADINE 10 MG TAB PO SCH (11:13)
[2017-10-18] MEDS: clonazePAM 0.5 MG TAB PO SCH (11:14)
== END 2017-10-18 13:57 | disposition home or self-care (01) ==
LOC: NEPE 21:41 → NEDA 10-12 00:45 → NEDH 10-12 03:54 → NEPGCP 10-12 12:18 → NEPHCDU 10-17 18:29
PROVIDERS: ADMIT Family Medicine; ATTEND Family Medicine
DX: T42.6X5A Adverse effect of other antiepileptic and sedative-hypnotic drugs, initial encounter (principal); R21 Rash and other nonspecific skin eruption; R60.0 Localized edema; G43.909 Migraine, unspecified, not intractable, without status migrainosus; R06.02 Shortness of breath; R06.03 Acute respiratory distress; I95.9 Hypotension, unspecified; R10.31 Right lower quadrant pain; K59.00 Constipation, unspecified; D72.829 Elevated white blood cell count, unspecified; A60.00 Herpesviral infection of urogenital system, unspecified; N83.202 Unspecified ovarian cyst, left side; J45.909 Unspecified asthma, uncomplicated; F43.10 Post-traumatic stress disorder, unspecified; F90.9 Attention-deficit hyperactivity disorder, unspecified type; M54.2 Cervicalgia; M54.5 Low back pain; Z72.0 Tobacco use; Z79.899 Other long term (current) drug therapy; Z23 Encounter for immunization
CPT/HCPCS: 71045; 74018; 76700; 76856; 80053; 81001; 83690; 85007; 85025; 85027; 87255; 90471; 90686; 90732; 94664; 96361; 96372; 96374; 96375; 96376; 97161; 99285; G0378; G8987; G8988; G8989; J0780; J1200; J1650; J2060; J2405; J2920; J2930; J3030; J7030; J7512; J7613; G0008; Q2038

== ENCOUNTER 2017-12-01 15:23 | Emergency (ER) | payer SELFPAY ==
[~2017-12-01 15:23] MED LIST changes: -ADDE20 PO; -ADDE25CA PO; -AMIT10TA6 PO; +Acet-Butal-Caff 325-50-40 Mg PO; +BENA25CA4 PO; +CLAR10TA7 PO; +DEPA500T3 PO; -HYDR-3516 PO; +MIRA3350 PO; +PERI PO; +PRED50 PO; -PRED5PAK PO; -TOPI25 PO; +VALT500T PO
[2017-12-01 16:02] VITALS: BP 126/76; PULSE 85; RESP 16; TEMP 98.2; O2SAT 98
--- NOTE | 2017-12-01 16:27 | RADRPT ---
EXAM DATE/TIME: 12/01/2017 16:15 [facility] COMPARISON: CHEST PA & LAT, January 26, 2016, 10:38. INDICATIONS : Short of breath, coughing with chest pain. MEDICAL HISTORY : None. SURGICAL HISTORY : None. ENCOUNTER: Initial ACUITY: 1 day PAIN SCORE: 0/10 LOCATION: Bilateral chest FINDINGS: PA and lateral views of the chest demonstrate the lungs to be symmetrically aerated without evidence of mass, infiltrate or effusion. The cardiomediastinal contours are unremarkable. Osseous structure s are intact. CONCLUSION: No acute disease. No significant change has occurred. Gilmer Saxena MD on December 01, 2017 at 16:24 Board Certified Radiologist. This report was verified electronically.
[2017-12-01 17:58] LABS: AUTOMATED NEUTROPHIL # 9.7 TH/MM3 (1.8-7.7); BASOPHIL # 0.1 TH/MM3 (0-0.2); BASOPHIL % 0.4 % (0.0-2.0); EOSINOPHIL # 0.6 TH/MM3 (0-0.4); EOSINOPHIL % 4.3 % (0.0-4.0); HEMATOCRIT 40.2 % (35.0-46.0); HEMOGLOBIN 13.3 GM/DL (11.6-15.3); LYMPH % 13.4 % (9.0-44.0); LYMPHOCYTE # 1.7 TH/MM3 (1.0-4.8); MEAN CELL VOLUME 93.2 FL (80.0-100.0); MEAN CORPUSCULAR HEMOGLOBIN 30.9 PG (27.0-34.0); MEAN CORPUSCULAR HGB CONC 33.2 % (32.0-36.0); MEAN PLATELET VOLUME 8.4 FL (7.0-11.0); MONO % 6.3 % (0.0-8.0); MONOCYTE # 0.8 TH/MM3 (0-0.9); NEUT % 75.6 % (16.0-70.0); PLATELET COUNT 357 TH/MM3 (150-450); RED BLOOD COUNT 4.31 MIL/MM3 (4.00-5.30); RED CELL DISTRIBUTION WIDTH 14.6 % (11.6-17.2); WHITE BLOOD COUNT 12.8 TH/MM3 (4.0-11.0)
[2017-12-01 18:14] LABS: ALBUMIN 3.9 GM/DL (3.4-5.0); AST (GOT) 18 U/L (15-37); BICARBONATE 28.7 MEQ/L (21.0-32.0); BLOOD UREA NITROGEN 17 MG/DL (7-18); CALCIUM 9.1 MG/DL (8.5-10.1); CHLORIDE 102 MEQ/L (98-107); CREATININE 0.79 MG/DL (0.50-1.00); GLOMERULAR FILTRATION RATE 79 ML/MIN (>89); GLUCOSE,RANDOM 83 MG/DL (74-106); SODIUM (NA) 139 MEQ/L (136-145)
[2017-12-01 18:18] LABS: ALKALINE PHOSPHATASE 74 U/L (45-117); ALT (GPT) 21 U/L (10-53); TOTAL BILIRUBIN ADULT 0.2 MG/DL (0.2-1.0); TOTAL PROTEIN 7.5 GM/DL (6.4-8.2)
[2017-12-01 18:35] LABS: BACTERIA, URINE MANY /hpf; BILIRUBIN, URINE NEG (NEG); BLOOD, URINE SMALL (NEG); GLUCOSE,URINE NEG (NEG); KETONE, URINE NEG (NEG); MUCUS URINE FEW /lpf (OCC); NITRITE,URINE NEG (NEG); PH, URINE 6.5 (5.0-8.5); SQUAMOUS EPITHELIAL CELL URINE 1 /hpf (0-5); URINE COLOR YELLOW (YELLW/STRAW); URINE LEUKOCYTE ESTERASE SMALL (NEG)
[2017-12-01] MEDS ORDERED: SODIUM CHLOR 0.9% 1000 ML INJ 1,000 ML IV ONE ×2 (20:48→22:30)
[2017-12-01 20:55] VITALS: RESP 20; O2SAT 97
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
[2017-12-01] MEDS ORDERED: diphenhydrAMINE HCL 50 MG/ML VIAL IVP ONE (21:00)
[2017-12-01] MEDS ORDERED: KETOROLAC TROMETHAMINE 30 MG/ML (IVP) VIAL IVP ONE (21:00)
[2017-12-01] MEDS ORDERED: PROCHLORPERAZINE INJ 10 MG/2 ML VIAL IVP ONE (21:00)
[2017-12-01] MEDS ORDERED: MORPHINE SULFATE 4 MG/ML INJ IV PUSH ONE (21:00)
[2017-12-01] MEDS ORDERED: SODIUM CHLORIDE 0.9% FLUSH 10 ML FLUSH IVF PRN (21:00)
[2017-12-01] MEDS ORDERED: ACETAMINOPHEN 325 MG TAB PO ONE (21:00)
[2017-12-01] MEDS ORDERED: methylPREDNISolone SOD SUCC 125 MG/2 ML VIAL IV PUSH ONE (21:00)
[2017-12-01 21:32] VITALS: BP 127/87; PULSE 83; RESP 18; O2SAT 98
[2017-12-01] MEDS ORDERED: ONDANSETRON HCL 4 MG/2 ML VIAL IV PUSH ONE (22:30)
[2017-12-01] MEDS ORDERED: DIPH25CA PO (22:33)
[2017-12-01] MEDS ORDERED: CIPR-9 PO (22:33)
[2017-12-01] MEDS ORDERED: BUTA1CAP PO (22:33)
[2017-12-01] MEDS ORDERED: PRED20 PO (22:33)
[2017-12-01] MEDS ORDERED: ZANT150T2 PO (22:33)
[2017-12-01 22:34] VITALS: BP 118/76; PULSE 71; RESP 18
== END 2017-12-02 00:11 | disposition home or self-care (01) ==
LOC: NED 15:23 → NEPD 12-02 00:11
DX: G43.909 Migraine, unspecified, not intractable, without status migrainosus (principal); R21 Rash and other nonspecific skin eruption; N30.00 Acute cystitis without hematuria; Z72.0 Tobacco use
CPT/HCPCS: 71046; 80053; 81001; 84703; 85025; 87077; 87086; 87186; 96361; 96374; 96375; 99284; J0780; J1200; J1885; J2270; J2405; J2930; J7030

== ENCOUNTER 2018-02-02 22:16 | Emergency (ER) | payer SELFPAY ==
[~2018-02-02] VITALS: Ht 170.2 cm; Wt 65.0 kg
[~2018-02-02 22:16] MED LIST changes: -Acet-Butal-Caff 325-50-40 Mg PO; +BACT800T5 PO; -BENA25CA4 PO; +BUSP5TAB PO; +BUTA1CAP PO; -CLAR10TA7 PO; -CLON.5 PO; -DEPA500T3 PO; -FAMO1TAB37 PO; +IBUP-232 PO; -MIRA3350 PO; -PERI PO; -PRED50 PO; -VALT500T PO
[2018-02-02 23:01] VITALS: BP 145/62; PULSE 96; RESP 16; TEMP 98.5; O2SAT 98
[2018-02-03] MEDS ORDERED: PROCHLORPERAZINE INJ 10 MG/2 ML VIAL IV PUSH ONE (01:30)
[2018-02-03] MEDS ORDERED: diphenhydrAMINE HCL 50 MG/ML VIAL IV PUSH ONE (01:30)
[2018-02-03] MEDS ORDERED: DEXAMETHASONE SOD PHOS 4 MG/ML VIAL IV PUSH ONE (01:30)
[2018-02-03] MEDS ORDERED: SODIUM CHLOR 0.9% 1000 ML INJ 1,000 ML IV ONE (01:30)
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
[2018-02-03 02:02] VITALS: BP 139/86; PULSE 95; RESP 18; O2SAT 99
--- NOTE | 2018-02-03 02:18 | RADRPT ---
EXAM DATE: 02/03/2018 1:41 AM EDT AGE/SEX: 42 years / Female INDICATIONS: Bilateral upper chest pain with shortness of breath. CLINICAL DATA: This is the patient's initial encounter. Patient reports that signs and symptoms have been present for 1 day and indicates a pain score of 4/10. MEDICAL/SURGICAL HISTORY: Asthma. None. COMPARISON: [facility], CHEST SINGLE AP, 10/12/2017. . FINDINGS: A single AP view of the chest demonstrates the lungs to be symmetrically aerated without evidence of mass, infiltrate or effusion. The cardiomediastinal contours are unremarkable. Osseous structures a re intact. CONCLUSION: No acute cardiopulmonary disease. Electronically signed by: Josef Calero MD 02/03/2018 2:17 AM EDT
--- NOTE | 2018-02-03 02:40 | RADRPT ---
EXAM DATE: 02/03/2018 2:31 AM EDT AGE/SEX: 42 years / Female INDICATIONS: Cephalgia. CLINICAL DATA: This is the patient's initial encounter. Patient reports that signs and symptoms have been present for 1 day and indicates a pain score of 6/10. MEDICAL/SURGICAL HISTORY: None. None. RADIATION DOSE: 56.35 CTDI (mGy) COMPARISON: [facility] [place], CT BRAIN W/O CONTRAST, 05/13/2017. . TECHNIQUE: CT of the head without contrast. Using automated exposure control and adjustment of the mA and/or kV according to patient size, radiation dose was kept as low as reasonably achievable to ob tain optimal diagnostic quality images. FINDINGS: Cerebrum: The ventricles are normal for age. No evidence of midline shift, mass lesion, hemorrhage or acute infarction. No extraaxial fluid collections are seen. Posterior Fossa: The cerebellum and brainstem are intact. The 4th ventricle is midline. The cerebe llopontine angle is unremarkable. Extracranial: The visualized portion of the orbits is intact. Skull: The calvaria is intact. No evidence of skull fracture. CONCLUSION: 1. Negative noncontrast head CT without significant change. Electronically signed by: Josef Calero MD 02/03/2018 2:38 AM EDT
[2018-02-03 02:45] LABS: AUTOMATED NEUTROPHIL # 6.6 TH/MM3 (1.8-7.7); BASOPHIL # 0.1 TH/MM3 (0-0.2); BASOPHIL % 0.6 % (0.0-2.0); EOSINOPHIL # 0.3 TH/MM3 (0-0.4); EOSINOPHIL % 2.9 % (0.0-4.0); HEMATOCRIT 37.9 % (35.0-46.0); HEMOGLOBIN 12.3 GM/DL (11.6-15.3); LYMPHOCYTE # 2.7 TH/MM3 (1.0-4.8); MEAN CELL VOLUME 91.3 FL (80.0-100.0); MEAN CORPUSCULAR HEMOGLOBIN 29.5 PG (27.0-34.0); MEAN CORPUSCULAR HGB CONC 32.4 % (32.0-36.0); MEAN PLATELET VOLUME 8.4 FL (7.0-11.0); MONO % 6.7 % (0.0-8.0); MONOCYTE # 0.7 TH/MM3 (0-0.9); NEUT % 63.8 % (16.0-70.0); PLATELET COUNT 317 TH/MM3 (150-450); RED BLOOD COUNT 4.15 MIL/MM3 (4.00-5.30); RED CELL DISTRIBUTION WIDTH 14.6 % (11.6-17.2); WHITE BLOOD COUNT 10.4 TH/MM3 (4.0-11.0)
[2018-02-03 02:46] LABS: PROTHROMBIN TIME - PATIENT 9.7 SEC (9.8-11.6)
[2018-02-03 02:46] LABS: BILIRUBIN, URINE NEG (NEG); BLOOD, URINE NEG (NEG); GLUCOSE,URINE NEG (NEG); KETONE, URINE NEG (NEG); NITRITE,URINE NEG (NEG); PH, URINE 6.5 (5.0-8.5); SQUAMOUS EPITHELIAL CELL URINE <1 /hpf (0-5); URINE COLOR LIGHT-YELLOW (YELLW/STRAW); URINE LEUKOCYTE ESTERASE NEG (NEG)
[2018-02-03 03:03] LABS: ALBUMIN 3.6 GM/DL (3.4-5.0); ALT (GPT) 21 U/L (10-53); AST (GOT) 15 U/L (15-37); BICARBONATE 25.1 MEQ/L (21.0-32.0); BLOOD UREA NITROGEN 12 MG/DL (7-18); CALCIUM 8.2 MG/DL (8.5-10.1); CHLORIDE 106 MEQ/L (98-107); CREATININE 0.65 MG/DL (0.50-1.00); GLOMERULAR FILTRATION RATE 99 ML/MIN (>89); GLUCOSE,RANDOM 81 MG/DL (74-106); MAGNESIUM 2.1 MG/DL (1.5-2.5); SODIUM (NA) 140 MEQ/L (136-145)
[2018-02-03 03:13] LABS: ALKALINE PHOSPHATASE 62 U/L (45-117); TOTAL BILIRUBIN ADULT 0.2 MG/DL (0.2-1.0); TOTAL PROTEIN 6.7 GM/DL (6.4-8.2); TROPONIN I LESS THAN 0.02 NG/ML (0.02-0.05)
[2018-02-03] MEDS ORDERED: PROC25SU22 RECTAL (03:59)
--- NOTE | 2018-02-03 14:42 | EKG ---
Date Performed: 02/03/2018 Time Performed: 01:43:40 PTAGE: 42 years EKG: Sinus rhythm NORMAL ECG NO PREVIOUS TRACING DOCTOR: Rory Rutherford Interpretating Date/Time 02/03/2018 14:41:09
== END 2018-02-03 04:41 | disposition home or self-care (01) ==
LOC: NEPE 22:16
DX: G43.909 Migraine, unspecified, not intractable, without status migrainosus (principal); R11.2 Nausea with vomiting, unspecified; R07.89 Other chest pain; R10.10 Upper abdominal pain, unspecified; G89.29 Other chronic pain; Z79.899 Other long term (current) drug therapy
CPT/HCPCS: 70450; 71045; 80053; 81001; 82550; 83690; 83735; 84443; 84484; 84703; 85025; 85610; 85730; 93005; 96361; 96374; 96375; 99285; J0780; J1100; J1200; J7030

== ENCOUNTER 2018-05-04 12:57 | Inpatient (IN) ==
[2018-05-04] MEDS ORDERED: Vancomycin Inj 1 GM/200 ML PIGGYBACK IV.SIG ONE (17:27)
[2018-05-04] MEDS ORDERED: Ketorolac Inj 30 MG/ML (IVP) Vial IV.PUSH ONE (17:27)
--- NOTE | 2018-05-04 17:38 | ED ---
HPI General Chief complaint: Skin/Abscess/Foreign Body Stated complaint: eyes/swollen gums complaint Time Seen by Provider: 05/04/18 16:55 Source: patient Mode of arrival: ambulatory Limitations: no limitations History of Present Illness HPI narrative: 42yo F with PMH of depression here with c/o bilateral periorbital pain. Said 4 days ago, the right side started first and then the first side as well. Pain has been worst since yesterday and today it started oozing today. Fever of 101F at home today. No vision changes. No eye pain but when we check for eye movement, there is some pain in right eye looking up. Denies any chest pain, sob, trauma, n/v, abdominal pain, focal weakness or numbness. Related Data Home Medications Medication Instructions Recorded Confirmed No Known Home Medications 05/04/18 05/04/18 Allergies Allergy/AdvReac Type Severity Reaction Status Date / Time No Known Allergies Allergy Unverified 05/04/18 17:15 Review of Systems ROS: all other systems reviewed are negative [facility] Medical History Medical History ADHD (Acute) Anxiety (Acute) PTSD (post-traumatic stress disorder) (Acute) Surgical History Surgical History History of surgery on arm (Acute) Previous section (Acute) Social History Social History Substance History: No History of Abuse Second Hand Smoke Exposure: No Smoking Status: Never smoker How Often Do You Have a Drink Containing Alcohol: Never Recent Travel in [facility] within the Last 8 Weeks: No Recent Out of Country Travel within the Last 8 Weeks: No Immunization History Tetanus Immunization: Unsure Hx Influenza Vaccine This Season: No Exam Narrative Exam Narrative: GENERAL: 42yo F in moderate distress. SKIN: Periorbital erythema bilaterally. +Honeycomb impetigo like rash on right eyelid and mid forehead. HEAD: Atraumatic. Normocephalic. EYES: Pupils equal and round at 4mm bilaterally. EOMI. However, there is pain in right eye with eye movement. ENT: No nasal bleeding or discharge. Mucous membranes pink and moist. NECK: Trachea midline. No JVD. CARDIOVASCULAR: Regular rate and rhythm. No murmur appreciated. RESPIRATORY: No accessory muscle use. Clear to auscultation. Breath sounds equal bilaterally. GASTROINTESTINAL: Abdomen soft, non-tender, nondistended. MUSCULOSKELETAL: No obvious deformities. No clubbing. No cyanosis. No edema. NEUROLOGICAL: Awake and alert. No obvious cranial nerve deficits. Motor grossly within normal limits. Normal speech. PSYCHIATRIC: Appropriate mood and affect; insight and judgment normal. Course Initial Documented Vital Signs Temperature 98.8 F 05/04/18 13:08 Pulse Rate 87 05/04/18 13:08 Respiratory Rate 16 05/04/18 13:08 Blood Pressure 138/76 05/04/18 13:08 Pulse Oximetry 97 05/04/18 13:08 Last Documented Vital Signs Temperature 98.8 F 05/04/18 13:08 Pulse Rate 87 05/04/18 13:08 Respiratory Rate 16 05/04/18 13:08 Blood Pressure 138/76 05/04/18 13:08 Pulse Oximetry 97 05/04/18 13:08 Medical Decision Making MDM Narrative Medical decision making narrative: 42yo F with bilateral periorbital erythema, pain and warmth. Started having oozing today and said redness and pain has worsened since last night. Said fever of 101F today. Pt given vancomycin IV here. Denies any trauma. Labs reviewed, no leukocytosis. H/H normal. Lactic acid normal. BMP unremarkable. CT orbits showed symmetric induration of subcutaneous soft tissue in the infraorbital region bilaterally. No radiopaque foreign body seen. No abnormal areas of enhancement seen. Pt's eyelids are very edematous. Although impression is still infectious, will cover with diphenhydramine and prednisone too. Pt said her pain is still bad after toradol so given morphine. Although there is no evidence of orbital cellulitis , erythema is extensive and pt is having trouble opening her eyes. Feel that observation and ophthalmology evaluation is warranted. Discuss with Dr. Plasencia and accepted to her service. Medical Screen Exam Complete: Yes Emergency Medical Condition: Yes Differential Diagnosis Differential Diagnosis: Periorbital cellulitis vs. orbital cellulitis vs. staph infection Lab Data Result diagrams: 05/04/18 17:55 05/04/18 17:55 Lab Results 05/04/18 05/04/18 05/04/18 Range/Units 17:55 17:55 17:55 WBC 8.0 (4.0-11.0) th/mm3 RBC 4.04 (4.00-5.30) mil/mm3 Hgb 12.2 (11.6-15.3) gm/dL Hct 36.9 (35.0-46.0) % MCV 91.3 (80.0-100.0) fL MCH 30.1 (27.0-34.0) pg MCHC 33.0 (32.0-36.0) % RDW 15.8 (11.6-17.2) % Plt Count 295 (150-450) th/mm3 MPV 9.3 (7.0-11.0) fL Neut % (Auto) 64.0 (16.0-70.0) % Lymph % (Auto) 23.7 (9.0-44.0) % [place] % (Auto) 7.6 (0.0-8.0) % Eos % (Auto) 4.3 H (0.0-4.0) % Baso % (Auto) 0.4 (0.0-2.0) % Neut # (Auto) 5.1 (1.8-7.7) th/mm3 Lymph # (Auto) 1.9 (1.0-4.8) th/mm3 [place] # (Auto) 0.6 (0.0-0.9) th/mm3 Eos # (Auto) 0.3 (0.0-0.4) th/mm3 Baso # (Auto) 0.0 (0.0-0.2) th/mm3 WBC Differential . Differential Comment Auto diff final PT 10.0 (9.8-11.6) sec INR 1.0 Ratio APTT 26.7 (24.3-30.1) sec Sodium 141 (136-145) meq/L Potassium 4.3 (3.5-5.1) meq/L Chloride 105 (98-107) meq/L Carbon Dioxide 25.5 (21.0-32.0) meq/L Anion Gap 11 (5-15) meq/L BUN 12 (7-18) mg/dL Creatinine 0.77 (0.50-1.00) mg/dL Estimated GFR 81 L (>89) mL/min Random Glucose 74 (74-106) mg/dL Lactic Acid (0.4-2.0) mmol/L Calcium 8.5 (8.5-10.1) mg/dL 05/04/18 Range/Units 17:55 WBC (4.0-11.0) th/mm3 RBC (4.00-5.30) mil/mm3 Hgb (11.6-15.3) gm/dL Hct (35.0-46.0) % MCV (80.0-100.0) fL MCH (27.0-34.0) pg MCHC (32.0-36.0) % RDW (11.6-17.2) % Plt Count (150-450) th/mm3 MPV (7.0-11.0) fL Neut % (Auto) (16.0-70.0) % Lymph % (Auto) (9.0-44.0) % [place] % (Auto) (0.0-8.0) % Eos % (Auto) (0.0-4.0) % Baso % (Auto) (0.0-2.0) % Neut # (Auto) (1.8-7.7) th/mm3 Lymph # (Auto) (1.0-4.8) th/mm3 [place] # (Auto) (0.0-0.9) th/mm3 Eos # (Auto) (0.0-0.4) th/mm3 Baso # (Auto) (0.0-0.2) th/mm3 WBC Differential Differential Comment PT (9.8-11.6) sec INR Ratio APTT (24.3-30.1) sec Sodium (136-145) meq/L Potassium (3.5-5.1) meq/L Chloride (98-107) meq/L Carbon Dioxide (21.0-32.0) meq/L Anion Gap (5-15) meq/L BUN (7-18) mg/dL Creatinine (0.50-1.00) mg/dL Estimated GFR (>89) mL/min Random Glucose (74-106) mg/dL Lactic Acid 1.2 (0.4-2.0) mmol/L Calcium (8.5-10.1) mg/dL Imaging Data Radiologist's impression: Face CT 05/04/18 17:31 CONCLUSION: 1. Symmetric bilateral subcutaneous soft tissue swelling in the infraorbital region. 2. Left maxillary sinus disease. 3. No facial bone fracture seen. Discharge Plan Discharge Disposition Patient Disposition: 30 Still Patient Discharge Details Diagnosis: Cellulitis, periorbital Physicians Team ED Provider: Julianna Newton Primary Care Provider: UNKNOWN, Attending Provider: Charis Plasencia Status ED Status: Admitted Observation Patient
[2018-05-04 18:49] LABS: Activated Partial Thrombo Time 26.7 sec (24.3-30.1)
[2018-05-04 18:52] LABS: Baso % (Auto) 0.4 % (0.0-2.0); Eos # (Auto) 0.3 th/mm3 (0.0-0.4); Eos % (Auto) 4.3 % (0.0-4.0); Hematocrit 36.9 % (35.0-46.0); Hemoglobin 12.2 gm/dL (11.6-15.3); Lymph # (Auto) 1.9 th/mm3 (1.0-4.8); Lymph % (Auto) 23.7 % (9.0-44.0); Mean Corpuscular Hemoglobin 30.1 pg (27.0-34.0); Mean Corpuscular Volume 91.3 fL (80.0-100.0); Mean Platelet Volume 9.3 fL (7.0-11.0); Mono # (Auto) 0.6 th/mm3 (0.0-0.9); Mono % (Auto) 7.6 % (0.0-8.0); Neut # (Auto) 5.1 th/mm3 (1.8-7.7); Platelet Count 295 th/mm3 (150-450); Red Blood Count 4.04 mil/mm3 (4.00-5.30); Red Cell Distribution Width 15.8 % (11.6-17.2)
[2018-05-04] MEDS ORDERED: Vancomycin Inj 1,000 MG in Sodium Chlor 0.9% Inj 250 ML IV.SIG ONE (19:00)
[2018-05-04 19:24] LABS: Calcium 8.5 mg/dL (8.5-10.1); Carbon Dioxide 25.5 meq/L (21.0-32.0)
[2018-05-04 19:26] LABS: Potassium 4.3 meq/L (3.5-5.1)
--- NOTE | 2018-05-04 20:37 | CT ---
EXAM DATE: 05/04/2018 8:00 PM EDT AGE/SEX: 42 years / Female INDICATIONS: Swelling to bilateral orbits for 3 days. CLINICAL DATA: This is the patient's initial encounter. Patient reports that signs and symptoms have been present for 3 days and indicates a pain score of 3/10. MEDICAL/SURGICAL HISTORY: None. None. RADIATION DOSE: 53.25 CTDI (mGy) COMPARISON: No prior exams available for comparison. TECHNIQUE: Contiguous images in the axial and coronal planes were obtained using helical multirow de tector technique with 70 ml Omnipaque 350 (iohexol) nonionic water-soluble contrast as a single exam dose. Using automated exposure control and adjustment of the mA and/or kV according to patient size , radiation dose was kept as low as reasonably achievable to obtain optimal diagnostic quality images . DICOM format image data is available electronically for review and comparison. FINDINGS: Orbits: The orbital and infraorbital osseous structures are intact. The retroconal structures have a normal configuration. No radiopaque foreign bodies are seen. Nasal Bone: The nasal bone and maxillary spine are intact. Zygomatic Arches: Symmetric without evidence of fracture. Sinuses: 2 cm rounded opacity in the posterior inferior left maxillary sinus characteristic of eithe r retention cyst or polyp. The remainder of the paranasal sinuses are clear. Nasal Cavity: The nasal septum is intact and midline. The lacrimal ducts are intact. Soft Tissues: There is symmetric induration of the subcutaneous soft tissues in the infraorbital reg ion bilaterally. No radiopaque foreign bodies seen. Intracranial: No intracranial air seen. Cribriform Plate: Grossly intact. Post Contrast: No abnormal areas of enhancement seen. CONCLUSION: 1. Symmetric bilateral subcutaneous soft tissue swelling in the infraorbital region. 2. Left maxillary sinus disease. 3. No facial bone fracture seen. Electronically signed by: Ruddy Fagan MD 05/04/2018 8:36 PM EDT
[2018-05-04] MEDS ORDERED: Morphine Inj 4 MG/ML Vial IV.PUSH ONE (21:54)
[2018-05-04] MEDS ORDERED: Vancomycin Consult Pharmacy OTHER PRN (23:10)
[2018-05-04] MEDS ORDERED: Acetaminophen 325 MG Tablet PO PRN (23:11)
[2018-05-04] MEDS ORDERED: Bisacodyl 10 MG Supp RECTAL PRN (23:11)
[2018-05-04] MEDS: Piperacil/Tazo 4.5 GM Premix 4.5 GM/100 ML BAG IV.SIG SCH (23:41)
--- NOTE | 2018-05-05 00:06 | P.HP ---
History of Present Illness Service: [facility] Primary Care Physician: UNKNOWN History of Present Illness: 42-year-old female with past medical history significant for ADHD, PTSD, anxiety and migraines presents to the emergency department for evaluation of bilateral periorbital swelling. The patient reports that approximately 4 days ago she began to notice swelling and redness around her eyes. She states that last night the pain and swelling worsened and she awoke yesterday morning to significant pain and swelling with serosanguineous drainage from cracks in her eyelids. She denies any visual changes and reports that her eyes feel itchy and dry. She denies any fever/chills. No chest pain or shortness of breath. No abdominal pain. No nausea/vomiting/diarrhea. Review of Systems All other systems reviewed negative except as stated in [facility] - History History Provided By: Patient - Medical History Medical History: Medical History (Last Updated 05/05/18 @ 00:03 by Charis Plasencia MD) ADHD Anxiety Migraines PTSD (post-traumatic stress disorder) - Surgical History Surgical History: Surgical History (Last Updated 05/04/18 @ 17:17 by Verna Friedman) History of surgery on arm Previous section - Family History Family History: Family History (Last Updated 05/05/18 @ 00:03 by Charis Plasencia MD) Other Coronary artery disease - Tobacco History Second Hand Smoke Exposure: No Smoking Status: Never smoker - Alcohol History How Often Do You Have a Drink Containing Alcohol: Never - Substance Use History Substance History: No History of Abuse - Travel History Recent Travel in the [place] Within the Last 8 Weeks: No Recent Travel Out of the Country Within the Last 8 Weeks: No - Immunization History Tetanus Immunization: Unsure Hx Influenza Vaccine This Season: No Medications and Allergies Active Medications: Active Medications Acetaminophen (Tylenol) 650 mg PO Q4H PRN PRN Reason: Temp > 100.4 Hydrocodone Bitart/Acetaminophen ([place] 5/325) 1 tab PO Q4H PRN PRN Reason: pain > 4 Al Hydroxide/Mg Hydroxide (Milk Of Magnesia Liq) 30 ml PO Q12H PRN PRN Reason: Mild Constipation Bisacodyl (Dulcolax Supp) 10 mg RECTAL DAILY PRN PRN Reason: SEVERE CONSITIPATION Piperacillin/Tazobactam/Dextrose (Zosyn 4.5 Gm Premix) 4.5 gm in 100 mls @ 200 mls/hr IV.SIG Q6H MAXIMO Last Admin: 05/04/18 23:41 Dose: 200 mls/hr Vancomycin HCl 1,000 mg/ (Sodium Chloride) 250 mls @ 250 mls/hr IV.SIG Q12H [facility] Miscellaneous Information ([facility] Ordered Lab Info) 0 each OTHER ONCE ONE Stop: 05/06/18 05:46 Ondansetron HCl (Zofran Inj) 4 mg IV.PUSH Q6H PRN PRN Reason: NAUSEA OR VOMITING Pharmacy Profile Note (Vancomycin Consult Pharmacy) 1 each OTHER UNSCH PRN PRN Reason: Pharmacy to dose Sennosides (Senokot) 17.2 mg PO Q12H PRN PRN Reason: Moderate Constipation Temazepam (Restoril) 15 mg PO HS PRN PRN Reason: INSOMNIA Allergies Allergy/AdvReac Type Severity Reaction Status Date / Time No Known Allergies Allergy Unverified 05/04/18 17:15 Home Medications Medication Instructions Recorded Confirmed Type No Known Home Medications 05/04/18 05/04/18 History Exam Vital signs: Vital Signs 05/04/18 13:08 Temperature 98.8 F Pulse Rate 87 Respiratory Rate 16 Blood Pressure 138/76 Pulse Oximetry 97 Intake & Output 05/04/18 05/04/18 05/05/18 06:59 18:59 06:59 Weight 70.307 kg Narrative: Gen.: No acute distress Head: Normocephalic. Atraumatic. EENT: Pupils equal round and reactive to light. Nose without drainage. Airway intact. Throat without injection. Cardiovascular: Regular rate and rhythm. No murmurs, rubs or gallops. Respiratory: Lungs clear to auscultation bilaterally. No wheezes or rhonchi. Abdomen: Soft, nontender, nondistended. No peritoneal signs. Musculoskeletal: No gross deformities. No edema. Skin: Periorbital erythema and edema without obvious drainage. Neuro: Sensory and motor grossly intact. Cranial nerves II through XII grossly intact. Results - Labs CBC & Chem 7: 05/04/18 17:55 05/04/18 17:55 Labs: Laboratory Results - last 24 hr 05/04/18 05/04/18 05/04/18 17:55 17:55 17:55 WBC 8.0 RBC 4.04 Hgb 12.2 Hct 36.9 MCV 91.3 MCH 30.1 MCHC 33.0 RDW 15.8 Plt Count 295 MPV 9.3 Neut % (Auto) 64.0 Lymph % (Auto) 23.7 [place] % (Auto) 7.6 Eos % (Auto) 4.3 H Baso % (Auto) 0.4 Neut # (Auto) 5.1 Lymph # (Auto) 1.9 [place] # (Auto) 0.6 Eos # (Auto) 0.3 Baso # (Auto) 0.0 WBC Differential . Differential Comment Auto diff final PT 10.0 INR 1.0 APTT 26.7 Sodium 141 Potassium 4.3 Chloride 105 Carbon Dioxide 25.5 Anion Gap 11 BUN 12 Creatinine 0.77 Estimated GFR 81 L Random Glucose 74 Lactic Acid Calcium 8.5 05/04/18 17:55 WBC RBC Hgb Hct MCV MCH MCHC RDW Plt Count MPV Neut % (Auto) Lymph % (Auto) [place] % (Auto) Eos % (Auto) Baso % (Auto) Neut # (Auto) Lymph # (Auto) [place] # (Auto) Eos # (Auto) Baso # (Auto) WBC Differential Differential Comment PT INR APTT Sodium Potassium Chloride Carbon Dioxide Anion Gap BUN Creatinine Estimated GFR Random Glucose Lactic Acid 1.2 Calcium - Imaging Impressions Face CT 05/04/18 17:31 CONCLUSION: 1. Symmetric bilateral subcutaneous soft tissue swelling in the infraorbital region. 2. Left maxillary sinus disease. 3. No facial bone fracture seen. Caprini VTE Risk Assessment Caprini VTE Risk Assessment: No/Low Risk (score <= 1) Caprini Risk Assessment Model: Point Value = 1 Point Value = 2 Point Value = 3 Point Value = 5 Age 41-60 Minor surgery BMI > 25 kg/m2 Swollen legs Varicose veins or History of unexplained or recurrent spontaneous Oral contraceptives or hormone replacement Sepsis (< 1 month) Serious lung disease, including pneumonia (< 1 month) Abnormal pulmonary function Acute myocardial infarction Congestive heart failure (< 1 month) History of inflammatory bowel disease Medical patient at bed rest Age 61-74 Arthroscopic surgery Major open surgery (> 45 min) Laparoscopic surgery (> 45 min) Malignancy Confined to bed (> 72 hours) Immobilizing plaster cast Central venous access Age >= 75 History of VTE Family history of VTE Factor V Leiden Prothrombin [id number] Lupus anticoagulant Anticardiolipin antibodies Elevated serum homocysteine Heparin-induced thrombocytopenia Other congenital or acquired thrombophilia Stroke (< 1 month) Elective arthroplasty Hip, pelvis, or leg fracture Acute spinal cord injury (< 1 month) Prophylaxis Regimen: Total Risk Factor Score Risk Level Prophylaxis Regimen 0-1 Low Early ambulation 2 Moderate Order ONE of the following: *Sequential Compression Device (SCD) *Heparin 5000 units SQ BID 3-4 Higher Order ONE of the following medications: *Heparin 5000 units SQ TID *Enoxaparin/Lovenox 40 mg SQ daily (WT < 150 kg, CrCl > 30 mL/min) *Enoxaparin/Lovenox 30 mg SQ daily (WT < 150 kg, CrCl > 10-29 mL/min) *Enoxaparin/Lovenox 30 mg SQ BID (WT < 150 kg, CrCl > 30 mL/min) AND/OR *Sequential Compression Device (SCD) 5 or more Highest Order ONE of the following medications: *Heparin 5000 units SQ TID (Preferred with Epidurals) *Enoxaparin/Lovenox 40 mg SQ daily (WT < 150 kg, CrCl > 30 mL/min) *Enoxaparin/Lovenox 30 mg SQ daily (WT < 150 kg, CrCl > 10-29 mL/min) *Enoxaparin/Lovenox 30 mg SQ BID (WT < 150 kg, CrCl > 30 mL/min) AND *Sequential Compression Device (SCD) Assessment and Plan - Plan Assessment/plan: 1. Periorbital cellulitis Vancomycin/Zosyn CT of the face significant for symmetric bilateral subcutaneous soft tissue swelling in the infraorbital region Ophthalmology consulted, appreciate recommendations 2. ADHD/PTSD/anxiety Patient not currently on home medications Follow-up as outpatient FEN Regular diet Electrolytes: Monitor and replete as needed
[2018-05-05] MEDS: Vancomycin Inj 1,000 MG in Sodium Chlor 0.9% Inj 250 ML IV.SIG SCH ×2 (06:07→17:57)
[2018-05-05] MEDS: Piperacil/Tazo 4.5 GM Premix 4.5 GM/100 ML BAG IV.SIG SCH ×6 (08:11→19:00)
[2018-05-05 09:08] LABS: Baso % (Auto) 0.3 % (0.0-2.0); Hematocrit 37.6 % (35.0-46.0); Hemoglobin 12.5 gm/dL (11.6-15.3); Lymph # (Auto) 0.6 th/mm3 (1.0-4.8); Lymph % (Auto) 6.5 % (9.0-44.0); Mean Corpuscular HGB Conc 33.1 % (32.0-36.0); Mean Corpuscular Hemoglobin 30.5 pg (27.0-34.0); Mean Corpuscular Volume 92.2 fL (80.0-100.0); Mean Platelet Volume 9.1 fL (7.0-11.0); Mono # (Auto) 0.1 th/mm3 (0.0-0.9); Mono % (Auto) 0.9 % (0.0-8.0); Neut # (Auto) 9.2 th/mm3 (1.8-7.7); Neut % (Auto) 92.3 % (16.0-70.0); Platelet Count 272 th/mm3 (150-450); Red Blood Count 4.08 mil/mm3 (4.00-5.30); Red Cell Distribution Width 15.9 % (11.6-17.2)
[2018-05-05 09:38] LABS: Calcium 8.6 mg/dL (8.5-10.1); Carbon Dioxide 23.6 meq/L (21.0-32.0); Potassium 4.3 meq/L (3.5-5.1)
--- NOTE | 2018-05-05 09:54 | P.PN ---
Subjective Interval history: complains of itching of they eyes, some tearing complains of mild headache- " usual migraine" states swelling of both eyes have decreased significantly since admission and with IV antiboitcs denies any history of using new soap, or skin products or any new make up no nausea or vomiting no neck pain on xam Physical Exam Vital signs: Vital Signs 05/04/18 13:08 05/05/18 01:00 05/05/18 01:33 Temperature 98.8 F 97.8 F 98.1 F Pulse Rate 87 70 68 Respiratory Rate 16 20 20 Blood Pressure 138/76 116/69 105/63 Pulse Oximetry 97 97 95 05/05/18 04:00 05/05/18 08:00 Temperature 97.9 F 97.7 F Pulse Rate 70 74 Respiratory Rate 18 14 Blood Pressure 100/67 92/57 L Pulse Oximetry 97 97 Intake & Output 05/04/18 05/05/18 05/05/18 18:59 06:59 18:59 Intake Total 350 / 350 Balance 350 / 350 Weight 70.307 kg 70.31 kg Intake: IV 350 / 350 Zosyn 4.5 GM Premix 4.5 gm In 100 / 100 100 ml @ 200 mls/hr IV.SIG Q6H MAXIMO Rx#:[id number] Vancomycin Inj 1,000 MG In NS 250 / 250 Inj 250 ML @ 250 mls/hr IV.SIG ONCE ONE Rx#:[id number] Other: Weight On Admission 70.307 kg Narrative: awake and alert, speech clear bialteral peiorbital erythema, sweling - per patient much improved able to open eyes, no conjucntival injection EOM full range of motion gross vision baseline no nuchal rigidity naoe of the neck and retroorbital area- with some erythema and dry open superficial wounds, scabs lungs- no rales regular rhythm abdomen soft extrmeities no edema Results - Labs CBC & Chem 7: 05/05/18 08:26 05/05/18 08:26 Laboratory Results - last 24 hr 05/04/18 05/04/18 05/04/18 17:55 17:55 17:55 WBC 8.0 RBC 4.04 Hgb 12.2 Hct 36.9 MCV 91.3 MCH 30.1 MCHC 33.0 RDW 15.8 Plt Count 295 MPV 9.3 Neut % (Auto) 64.0 Lymph % (Auto) 23.7 [place] % (Auto) 7.6 Eos % (Auto) 4.3 H Baso % (Auto) 0.4 Neut # (Auto) 5.1 Lymph # (Auto) 1.9 [place] # (Auto) 0.6 Eos # (Auto) 0.3 Baso # (Auto) 0.0 WBC Differential . Differential Comment Auto diff final PT 10.0 INR 1.0 APTT 26.7 Sodium 141 Potassium 4.3 Chloride 105 Carbon Dioxide 25.5 Anion Gap 11 BUN 12 Creatinine 0.77 Estimated GFR 81 L Random Glucose 74 Lactic Acid Calcium 8.5 05/04/18 05/05/18 05/05/18 17:55 08:26 08:26 WBC 10.0 RBC 4.08 Hgb 12.5 Hct 37.6 MCV 92.2 MCH 30.5 MCHC 33.1 RDW 15.9 Plt Count 272 MPV 9.1 Neut % (Auto) 92.3 H Lymph % (Auto) 6.5 L [place] % (Auto) 0.9 Eos % (Auto) 0.0 Baso % (Auto) 0.3 Neut # (Auto) 9.2 H Lymph # (Auto) 0.6 L [place] # (Auto) 0.1 Eos # (Auto) 0.0 Baso # (Auto) 0.0 WBC Differential . Differential Comment Auto diff final PT INR APTT Sodium 140 Potassium 4.3 Chloride 107 Carbon Dioxide 23.6 Anion Gap 9 BUN 13 Creatinine 0.72 Estimated GFR 88 L Random Glucose 120 H Lactic Acid 1.2 Calcium 8.6 - Imaging Impressions Face CT 05/04/18 17:31 CONCLUSION: 1. Symmetric bilateral subcutaneous soft tissue swelling in the infraorbital region. 2. Left maxillary sinus disease. 3. No facial bone fracture seen. Assessment and Plan - Plan 42 years old female complained of bialteral periobital swelling x last 5 days Periorbital cellulitis, bilateral Vancomycin/Zosyn CT of the face significant for symmetric bilateral subcutaneous soft tissue swelling in the infraorbital region Ophthalmology consulted, - will defer to them for recommendation ? need for eyedrops to help with ithcing appreciate recommendations- ADHD/PTSD/anxiety/ occasional migraine Patient not currently on home medications-at one point was on Adderal and risperdal- stopped for 3 months now fioricet prn for PAUL Follow-up as outpatient FEN Regular diet Electrolytes: Monitor and replete as needed Up and ambulate
--- NOTE | 2018-05-05 11:49 | P.CON ---
History of Present Illness Service: Ophthalmology Reason for Consult: bilateral preseptal cellulitis Primary Care Provider: UNKNOWN History of Present Illness: 42 yo WF with h/o ADHD, PTSD, anxiety and migraines presents to ED for evaluation of bilateral periorbital swelling. The patient reports that approximately 4 days ago she began to notice swelling and redness around her eyes. Last night the pain and swelling worsened and she awoke yesterday morning to significant pain and swelling with serosanguineous drainage from cracks in her eyelids. She denies any visual changes and reports that her eyes feel itchy and dry. CT face shows symmetric bilateral subcutaneous soft tissue swelling in the infraorbital region and left maxillary sinus disease. Started on IV Vanc and Zosyn yesterday - pt notices a significant improvement in her swelling. [facility] - History History Provided By: Patient - Medical History Medical History: Medical History (Last Updated 05/05/18 @ 00:03 by Charis Plasencia MD) ADHD Anxiety Migraines PTSD (post-traumatic stress disorder) - Surgical History Surgical History: Surgical History (Last Updated 05/04/18 @ 17:17 by Verna Friedman) History of surgery on arm Previous section - Family History Family History: Family History (Last Updated 05/05/18 @ 00:03 by Charis Plasencia MD) Other Coronary artery disease - Tobacco History Second Hand Smoke Exposure: No Smoking Status: Never smoker - Alcohol History How Often Do You Have a Drink Containing Alcohol: Never - Substance Use History Substance History: No History of Abuse - Travel History Recent Travel in the [place] Within the Last 8 Weeks: No Recent Travel Out of the Country Within the Last 8 Weeks: No - Immunization History Tetanus Immunization: Unsure Hx Influenza Vaccine This Season: No Medications and Allergies Active Medications: Active Medications Acetaminophen (Tylenol) 650 mg PO Q4H PRN PRN Reason: Temp > 100.4 Last Admin: 05/05/18 08:10 Dose: 650 mg Acetaminophen/Butalbital/Caffeine (Fioricet 50-325-40) 1 tab PO Q8H PRN PRN Reason: MIGRAINE HEADACHE Hydrocodone Bitart/Acetaminophen ([place] 5/325) 1 tab PO Q4H PRN PRN Reason: pain > 4 Last Admin: 05/05/18 09:16 Dose: 1 tab Al Hydroxide/Mg Hydroxide (Milk Of Magnesia Liq) 30 ml PO Q12H PRN PRN Reason: Mild Constipation Bisacodyl (Dulcolax Supp) 10 mg RECTAL DAILY PRN PRN Reason: SEVERE CONSITIPATION Hydroxyzine HCl (Atarax) 10 mg PO Q8H PRN PRN Reason: itching eyes Last Admin: 05/05/18 11:21 Dose: 10 mg Piperacillin/Tazobactam/Dextrose (Zosyn 4.5 Gm Premix) 4.5 gm in 100 mls @ 200 mls/hr IV.SIG Q6H [facility] Last Infusion: 05/05/18 11:20 Dose: Infused Vancomycin HCl 1,000 mg/ (Sodium Chloride) 250 mls @ 250 mls/hr IV.SIG Q12H [facility] Last Infusion: 05/05/18 11:19 Dose: 200 mls/hr Miscellaneous Information ([facility] Ordered Lab Info) 0 each OTHER ONCE ONE Stop: 05/06/18 05:46 Ondansetron HCl (Zofran Inj) 4 mg IV.PUSH Q6H PRN PRN Reason: NAUSEA OR VOMITING Pharmacy Profile Note (Vancomycin Consult Pharmacy) 1 each OTHER UNSCH PRN PRN Reason: Pharmacy to dose Sennosides (Senokot) 17.2 mg PO Q12H PRN PRN Reason: Moderate Constipation Temazepam (Restoril) 15 mg PO HS PRN PRN Reason: INSOMNIA Allergies Allergy/AdvReac Type Severity Reaction Status Date / Time No Known Allergies Allergy Unverified 05/04/18 17:15 Home Medications Medication Instructions Recorded Confirmed Type No Known Home Medications 05/04/18 05/04/18 History Physical Exam Vital signs: Vital Signs 05/04/18 13:08 05/05/18 01:00 05/05/18 01:33 Temperature 98.8 F 97.8 F 98.1 F Pulse Rate 87 70 68 Respiratory Rate 16 20 20 Blood Pressure 138/76 116/69 105/63 Pulse Oximetry 97 97 95 05/05/18 04:00 05/05/18 08:00 Temperature 97.9 F 97.7 F Pulse Rate 70 74 Respiratory Rate 18 14 Blood Pressure 100/67 92/57 L Pulse Oximetry 97 97 Intake & Output 05/04/18 05/05/18 05/05/18 18:59 06:59 18:59 Intake Total 350 / 350 100 / 100 Balance 350 / 350 100 / 100 Weight 70.307 kg 70.31 kg Intake: IV 350 / 350 100 / 100 Zosyn 4.5 GM Premix 4.5 gm In 100 / 100 100 / 100 100 ml @ 200 mls/hr IV.SIG Q6H [facility] Rx#:[id number] Vancomycin Inj 1,000 MG In NS 250 / 250 Inj 250 ML @ 250 mls/hr IV.SIG ONCE ONE Rx#:[id number] Other: Weight On Admission 70.307 kg - Detailed Eye Exam Comments: Va cc at near OD 20/40, OS 20/25 EOM full OU, no diplopia CVF full OU Pupils 2-1 no APD OU IOP normal to palpation OU Anterior exam OD - eyelid edema and erythema with dryness and cracking, C/S W&Q, K clear, AC deep, pupil round, lens clear OS - eyelid edema and erythema with dryness and cracking, C/S W&Q, K clear, AC deep, pupil round, lens clear Assessment and Plan - Assessment (1) Preseptal cellulitis Code(s): L03.213 - Periorbital cellulitis Status: Acute Plan: Continue IV Vanc and Zosyn. If patient has continued improvement over a 48 hour period, she can be discharged on oral antibiotics and follow up as outpatient. Apply TobraDex ointment to eyelids QID, and TobraDex eye drops QID OU for itching.
[2018-05-05] MEDS: Butalbital/APAP/Caff 50/325/40 MG Tablet PO PRN ×2 (12:19→20:04)
[2018-05-05 12:59] LABS: Amphetamine Screen,Urine Neg (Neg); Barbiturate Screen,Urine Neg (Neg); Cannabinoid Screen,Urine Neg (Neg); Cocaine Screen,Urine Neg (Neg)
[2018-05-05 13:07] LABS: Opiate Screen,Urine Neg (Neg)
[2018-05-05] MEDS: Tobramycin/Dexamethasone Opth Drops 5 ML Bottle EACH EYE SCH ×2 (18:08→20:06)
[2018-05-05] MEDS: Temazepam 15 MG Capsule PO PRN (22:51)
[2018-05-06] MEDS: Piperacil/Tazo 4.5 GM Premix 4.5 GM/100 ML BAG IV.SIG SCH ×5 (00:51→17:29)
[2018-05-06] MEDS: Butalbital/APAP/Caff 50/325/40 MG Tablet PO PRN ×3 (05:36→22:33)
[2018-05-06] MEDS ORDERED: Pharmacy Ordered Lab Info OTHER ONE (05:45)
[2018-05-06] MEDS: Vancomycin Inj 1,000 MG in Sodium Chlor 0.9% Inj 250 ML IV.SIG SCH ×3 (06:50→17:29)
[2018-05-06] MEDS: Tobramycin/Dexamethasone Opth Drops 5 ML Bottle EACH EYE SCH ×4 (09:18→20:51)
--- NOTE | 2018-05-06 11:13 | P.PN ---
Subjective Interval history: patient afebrile feeling better- states eye oitment helsp slight bruning sensation with the ey drops able to have more eye opening no neck pain Physical Exam Vital signs: Vital Signs 05/05/18 12:00 05/05/18 16:00 05/05/18 20:00 Temperature 97.7 F 97.4 F L 98.1 F Pulse Rate 74 79 72 Respiratory Rate 16 16 14 Blood Pressure 105/58 L 113/72 105/60 Pulse Oximetry 97 100 97 05/06/18 00:00 05/06/18 04:00 05/06/18 08:00 Temperature 97.8 F 98.3 F 97.9 F Pulse Rate 68 68 63 Respiratory Rate 19 18 14 Blood Pressure 95/51 L 86/55 L 101/52 L Pulse Oximetry 98 97 98 05/06/18 10:56 Temperature Pulse Rate Respiratory Rate 18 Blood Pressure Pulse Oximetry Intake & Output 05/05/18 05/06/18 05/06/18 18:59 06:59 18:59 Intake Total 450 / 450 450 / 450 250 / 250 Balance 450 / 450 450 / 450 250 / 250 Intake: IV 450 / 450 450 / 450 250 / 250 Zosyn 4.5 GM Premix 4.5 gm In 200 / 200 200 / 200 100 ml @ 200 mls/hr IV.SIG Q6H [facility] Rx#:[id number] Vancomycin Inj 1,000 MG In NS 250 / 250 250 / 250 250 / 250 Inj 250 ML @ 250 mls/hr IV.SIG Q12H [facility] Rx#:[id number] Narrative: awake and alert, speech clear bialteral peiorbital erythema, sweling -swelling decreased, erythema improving, more eye opening EOM full range of motion gross vision baseline no nuchal rigidity nape of the neck and retroorbital area- mild erythema- improved and dry open superficial wounds, scabs lungs- no rales regular rhythm abdomen soft extrmeities no edema Results - Labs CBC & Chem 7: 05/05/18 08:26 05/05/18 08:26 Laboratory Results - last 24 hr 05/05/18 05/06/18 11:11 05:40 Vancomycin Trough 9.7 Urine Opiates Screen Neg Ur Barbiturates Screen Neg Ur Amphetamines Screen Neg U Benzodiazepines Scrn Neg Urine Cocaine Screen Neg U Cannabinoids Screen Neg Microbiology 05/04/18 17:53 Blood - Peripheral Aerobic Blood Culture - Preliminary No growth in 2 days 05/04/18 17:53 Blood - Peripheral Anaerobic Blood Culture - Preliminary No growth in 2 days 05/04/18 18:00 Blood - Peripheral Aerobic Blood Culture - Preliminary No growth in 2 days 05/04/18 18:00 Blood - Peripheral Anaerobic Blood Culture - Preliminary No growth in 2 days Assessment and Plan - Plan 42 years old female complained of bialteral periobital swelling x last 5 days Periorbital cellulitis, bilateral - gradually improving -continue on Vancomycin/Zosyn x 48 hours as Ophthalmology recommendation and swithced to po CT of the face significant for symmetric bilateral subcutaneous soft tissue swelling in the infraorbital region Ophthalmology recommendation appreciated- on eye drops/ointments ADHD/PTSD/anxiety/ occasional migraine Patient not currently on home medications-at one point was on Adderal and risperdal- stopped for 3 months now fioricet prn for PAUL Follow-up as outpatient FEN Regular diet Electrolytes: Monitor and replete as needed Up and ambulating
--- NOTE | 2018-05-06 17:10 | P.PN ---
Subjective Interval history: Feels swelling is gradually improving. Still complaining of severe itching and blurry vision OD>OS. Physical Exam Vital signs: Vital Signs 05/05/18 20:00 05/06/18 00:00 05/06/18 04:00 Temperature 98.1 F 97.8 F 98.3 F Pulse Rate 72 68 68 Respiratory Rate 14 19 18 Blood Pressure 105/60 95/51 L 86/55 L Pulse Oximetry 97 98 97 05/06/18 08:00 05/06/18 10:56 05/06/18 11:34 Temperature 97.9 F 98.3 F Pulse Rate 63 78 Respiratory Rate 14 18 16 Blood Pressure 101/52 L 132/73 Pulse Oximetry 98 99 05/06/18 16:00 Temperature 97.9 F Pulse Rate 76 Respiratory Rate 20 Blood Pressure 145/84 H Pulse Oximetry 98 Intake & Output 05/05/18 05/06/18 05/06/18 18:59 06:59 18:59 Intake Total 450 / 450 450 / 450 500 / 500 Balance 450 / 450 450 / 450 500 / 500 Intake: IV 450 / 450 450 / 450 500 / 500 Zosyn 4.5 GM Premix 4.5 gm In 200 / 200 200 / 200 0 / 0 100 ml @ 200 mls/hr IV.SIG Q6H [facility] Rx#:[id number] Vancomycin Inj 1,000 MG In NS 250 / 250 250 / 250 500 / 500 Inj 250 ML @ 250 mls/hr IV.SIG Q12H [facility] Rx#:[id number] - Detailed Eye Exam Comments: Va cc at near OD 20/40, OS 20/25 EOM full OU, no diplopia CVF full OU Pupils 2-1 no APD OU IOP normal to palpation OU Anterior exam OD - eyelid edema and erythema with dryness, C/S W&Q, K clear, AC deep, pupil round, lens clear OS - eyelid edema and erythema with dryness, C/S W&Q, K clear, AC deep, pupil round, lens clear Results - Labs CBC & Chem 7: 05/05/18 08:26 05/05/18 08:26 Laboratory Results - last 24 hr 05/06/18 05:40 Vancomycin Trough 9.7 Microbiology 05/04/18 17:53 Blood - Peripheral Aerobic Blood Culture - Preliminary No growth in 2 days 05/04/18 17:53 Blood - Peripheral Anaerobic Blood Culture - Preliminary No growth in 2 days 05/04/18 18:00 Blood - Peripheral Aerobic Blood Culture - Preliminary No growth in 2 days 05/04/18 18:00 Blood - Peripheral Anaerobic Blood Culture - Preliminary No growth in 2 days Assessment and Plan - Assessment (1) Preseptal cellulitis Code(s): L03.213 - Periorbital cellulitis Status: Acute Plan: Continue IV Vanc and Zosyn. If patient has continued improvement over a 48 hour period, she can be discharged on oral antibiotics and follow up as outpatient. Continue TobraDex ointment to eyelids QID, and TobraDex eye drops QID OU for itching. Start refrigerated artificial tears q1h OU.
[2018-05-06] MEDS: Hypromellose 0.3% Opth Gel 10 GM Bottle EACH EYE SCH ×5 (17:30→22:33)
[2018-05-06] MEDS: Temazepam 15 MG Capsule PO PRN (20:48)
[2018-05-07] MEDS: Piperacil/Tazo 4.5 GM Premix 4.5 GM/100 ML BAG IV.SIG SCH ×2 (00:05→05:41)
[2018-05-07] MEDS: Hypromellose 0.3% Opth Gel 10 GM Bottle EACH EYE SCH ×11 (00:05→12:21)
[2018-05-07 00:20] VITALS: TEMP 97.9
[2018-05-07] MEDS: Vancomycin Inj 1,000 MG in Sodium Chlor 0.9% Inj 250 ML IV.SIG SCH (05:41)
[2018-05-07] MEDS: Butalbital/APAP/Caff 50/325/40 MG Tablet PO PRN (08:04)
[2018-05-07] MEDS: Tobramycin/Dexamethasone Opth Drops 5 ML Bottle EACH EYE SCH (08:05)
[2018-05-07 09:01] VITALS: BP 94/52; PULSE 72; RESP 20; O2SAT 98
--- NOTE | 2018-05-07 10:53 | P.PN ---
Subjective Interval history: feeling much better mild itching eyes more open, no discharge Physical Exam Vital signs: Vital Signs 05/06/18 10:56 05/06/18 11:34 05/06/18 16:00 Temperature 98.3 F 97.9 F Pulse Rate 78 76 Respiratory Rate 18 16 20 Blood Pressure 132/73 145/84 H Pulse Oximetry 99 98 05/06/18 20:00 05/07/18 00:00 05/07/18 04:00 Temperature 98.2 F 97.9 F 97.9 F Pulse Rate 72 62 60 Respiratory Rate 19 19 17 Blood Pressure 102/60 83/52 L 117/64 Pulse Oximetry 98 96 99 05/07/18 09:00 Temperature Pulse Rate 72 Respiratory Rate 20 Blood Pressure 94/52 L Pulse Oximetry 98 Intake & Output 05/06/18 05/07/18 05/07/18 18:59 06:59 18:59 Intake Total 600 / 600 800 / 800 Balance 600 / 600 800 / 800 Intake: IV 600 / 600 800 / 800 Zosyn 4.5 GM Premix 4.5 gm In 100 / 100 300 / 300 100 ml @ 200 mls/hr IV.SIG Q6H [facility] Rx#:[id number] Vancomycin Inj 1,000 MG In NS 500 / 500 500 / 500 Inj 250 ML @ 250 mls/hr IV.SIG Q12H [facility] Rx#:[id number] Narrative: awake and alert, speech clear swelling almost resolved, mild erythema- supraorbirtal , no discharge, more eye opening EOM full range of motion gross vision baseline no nuchal rigidity nape of the neck and retroorbital area- mild erythema- improved and dry open superficial wounds, scabs- dry lungs- no rales regular rhythm abdomen soft extrmeities no edema Results - Labs CBC & Chem 7: 05/05/18 08:26 05/05/18 08:26 Microbiology 05/04/18 17:53 Blood - Peripheral Aerobic Blood Culture - Preliminary No growth in 2 days 05/04/18 17:53 Blood - Peripheral Anaerobic Blood Culture - Preliminary No growth in 2 days 05/04/18 18:00 Blood - Peripheral Aerobic Blood Culture - Preliminary No growth in 2 days 05/04/18 18:00 Blood - Peripheral Anaerobic Blood Culture - Preliminary No growth in 2 days Assessment and Plan - Plan 42 years old female complained of bialteral periobital swelling x last 5 days Periorbital cellulitis, bilateral - gradually improving -continue on Vancomycin/Zosyn x 48 hours as Ophthalmology recommendation and swithced to po CT of the face significant for symmetric bilateral subcutaneous soft tissue swelling in the infraorbital region Ophthalmology recommendation appreciated- on eye drops/ointments change to po antiibotics to day ADHD/PTSD/anxiety/ occasional migraine Patient not currently on home medications-at one point was on Adderal and risperdal- stopped for 3 months now fioricet prn for PAUL Follow-up as outpatient FEN Regular diet Electrolytes: Monitor and replete as needed Up and ambulating ff up with Dr. haddad- patient to call for appointment Home todayCM consulted to assist with dc meds
--- NOTE | 2018-05-07 11:05 | P.DS ---
Date of admission: 05/05/18 01:17 Primary care physician: UNKNOWN Brief History from admission: 42-year-old female with past medical history significant for ADHD, PTSD, anxiety and migraines presents to the emergency department for evaluation of bilateral periorbital swelling. The patient reports that approximately 4 days ago she began to notice swelling and redness around her eyes. She states that last night the pain and swelling worsened and she awoke yesterday morning to significant pain and swelling with serosanguineous drainage from cracks in her eyelids. She denies any visual changes and reports that her eyes feel itchy and dry. She denies any fever/chills. No chest pain or shortness of breath. No abdominal pain. No nausea/vomiting/diarrhea. DS: Medications - Discharge Medications Prescriptions: artificial tears(hypromellose) [GenTeal Severe] 1 drops EACH EYE Q1H #1 g [id number] 1 tab PO Q8H PRN #14 tab PRN Reason: Migraine Headache cephalexin 500 mg PO Q6HR 7 Days cap hydroxyzine HCl 10 mg PO Q8H PRN #15 tab PRN Reason: itching eyes tobramycin-dexamethasone [TobraDex] 1 drop EACH EYE QID #1 ml DS: Summary Hospital Course: 42 years old female complained of bialteral periobital swelling x last 5 days Periorbital cellulitis, bilateral - gradually improved -continue on Vancomycin/Zosyn x 48 hours as Ophthalmology recommendation and swithced to po CT of the face significant for symmetric bilateral subcutaneous soft tissue swelling in the infraorbital region Ophthalmology recommendation appreciated- on eye drops/ointments - Tobradex eye drops change to po antiibotics today- for DC-po Cephalexin ADHD/PTSD/anxiety/ occasional migraine Patient not currently on home medications-at one point was on Adderal and risperdal- stopped for 3 months now fioricet prn for PAUL Follow-up as outpatient FEN Regular diet Electrolytes: Monitor and replete as needed Up and ambulating ff up with Dr. Chen- [facility] tel- patient to call for ff up appointment Home today CM consulted to assist with dc meds - Time Spent with Patient Total time spent providing and/or coordinating discharge services: Less than 30 minutes - Quality: VTE Deep Vein Thrombosis/Pulmonary Embolism Present on Admission: No Exam Vital signs: Vital Signs 05/06/18 11:34 05/06/18 16:00 05/06/18 20:00 Temperature 98.3 F 97.9 F 98.2 F Pulse Rate 78 76 72 Respiratory Rate 16 20 19 Blood Pressure 132/73 145/84 H 102/60 Pulse Oximetry 99 98 98 05/07/18 00:00 05/07/18 04:00 05/07/18 09:00 Temperature 97.9 F 97.9 F Pulse Rate 62 60 72 Respiratory Rate 19 17 20 Blood Pressure 83/52 L 117/64 94/52 L Pulse Oximetry 96 99 98 Intake & Output 05/06/18 05/07/18 05/07/18 18:59 06:59 18:59 Intake Total 600 / 600 800 / 800 Balance 600 / 600 800 / 800 Intake: IV 600 / 600 800 / 800 Zosyn 4.5 GM Premix 4.5 gm In 100 / 100 300 / 300 100 ml @ 200 mls/hr IV.SIG Q6H [facility] Rx#:[id number] Vancomycin Inj 1,000 MG In NS 500 / 500 500 / 500 Inj 250 ML @ 250 mls/hr IV.SIG Q12H [facility] Rx#:[id number] Results Procedures completed during hospitalization: none Labs on day of discharge: Preliminary micro results at discharge 05/04/18 17:53 Aerobic Blood Culture - Preliminary Blood - Peripheral No growth in 3 days Anaerobic Blood Culture - Preliminary No growth in 3 days 05/04/18 18:00 Aerobic Blood Culture - Preliminary Blood - Peripheral No growth in 3 days Anaerobic Blood Culture - Preliminary No growth in 3 days - Impressions ITS Impressions Face CT 05/04/18 17:31 CONCLUSION: 1. Symmetric bilateral subcutaneous soft tissue swelling in the infraorbital region. 2. Left maxillary sinus disease. 3. No facial bone fracture seen. Discharge Plan - Discharge Disposition Patient Disposition: 01 Discharge Home - Discharge Condition Condition: Stable - Discharge Order Discharge Orders: Discharge Order (Routine); Ordered 05/07/18 Ordered By: Aidee Low - Discharge Details Anticipated Discharge Date: 05/07/18 - Physicians Team Primary Care Provider: UNKNOWN, Attending Provider: Aidee Low Other Providers: Odalys Chen MD
[2018-05-08] MEDS ORDERED: Pharmacy Ordered Lab Info OTHER ONE (05:45)
== END 2018-05-07 15:00 | disposition home or self-care (01) ==
LOC: NEDA 12:57 → NEPD 12:57 → NEPGCP 05-05 01:09
PROVIDERS: ADMIT Internal Medicine; ATTEND Internal Medicine